=== PATIENT | female | born 1930 | race Caucasian/White ===

== ENCOUNTER 2017-12-06 18:44 | Inpatient (IN) | payer OTHER, MEDICARE ==
[~2017-12-06] VITALS: Ht 162.6 cm; Wt 73.0 kg
[~2017-12-06 18:44] MED LIST: ADVAIR 250-501 EACH INH; ETODOLAC400 M1 PO; FLUTICASONE PRO16 GM NASB; GABAPENTIN300 M2 PO; MIRALAX119 GM PO; MUCINEX1200 M1 PO; PANTOPRAZOLE SO40 M1 PO; PRESERVISION A1 EACH PO; PROVENTIL HFA6.7 GM INH; SENNA-TIME S T1 EACH PO; TRAMADOL HCL50 M1 PO; VITAMIN B-121000 MC3 PO; ZESTRIL40 M1 PO; ZOFRAN ODT4 M1 PO
[2017-12-06 19:49] LABS: ABSOLUTE BASOPHIL COUNT 0.1 /CUMM (0.0-0.2); ABSOLUTE EOSINOPHIL COUNT 0.3 /CUMM (0.0-0.7); ABSOLUTE GRANULOCYTE CT 10.6 /CUMM (1.4-6.5); ABSOLUTE LYMPH COUNT 1.9 /CUMM (1.2-3.4); ABSOLUTE MONOCYTE COUNT 0.9 /CUMM (0.10-0.60); EOSINOPHIL % 1.9 % (0-5); GRANULOCYTE % 76.7 % (42.2-75.2); HEMATOCRIT 27.5 % (37-47); MEAN CORPUSCULAR HGB 31.3 PG (27.0-31.0); MEAN CORPUSCULAR HGB CONC 33.3 G/DL (33.0-37.0); MEAN CORPUSCULAR VOLUME 93.9 FL (81.0-99.0); MEAN PLATELET VOLUME 7.5 FL (7.4-10.4); PLATELET COUNT 334 /CUMM (130-400); RED BLOOD CELL CT 2.93 /CUMM (4.20-5.40); WHITE BLOOD CELL COUNT 13.8 /CUMM (4.8-10.8)
--- NOTE | 2017-12-06 20:13 | ED GENERAL ADULT ---
History of Present Illness General Chief Complaint: General Adult Stated Complaint: DIZZINESS, NEAR SYNCOPE EPISODE, LETHARGY Source: patient, family, old records Exam Limitations: clinical condition, confusion Allergies Coded Allergies: Penicillins (UNKNOWN 08/29/15) Sulfa (Sulfonamide Antibiotics) (UNKNOWN 08/29/15) Uncoded Allergies: MULTIPLE CHEMICAL SENSITIVITIES (08/29/15) Reconcile Medications Albuterol Sulfate (Proventil Hfa) 6.7 GM HFA.AER.AD 2 PUF INH TIDPRN BREATHING (Reported) Cyanocobalamin (Vitamin B-12) 1,000 MCG TABLET 1 TAB PO DAILY Supplement Fluticasone Propionate 16 GM SPRAY.SUSP 2 SPRAY NASB DAILY NEEDED PRN ALLERGIES (Reported) Fluticasone/Salmeterol (Advair 250-50 Diskus) 1 EACH BLST.W.DEV 1 PUF INH BID SICK BUILDING SYNDROME (Reported) Gabapentin 300 MG CAPSULE 1 CAP PO BID NERVE PAIN (Reported) Guaifenesin (Mucinex) 1,200 MG TAB.ER.12H 1 TAB PO BID MUCUS (Reported) Lidocaine 1 EACH ADH..PATCH 1 PAT TOP DAILY PAIN (Reported) Pantoprazole Sodium 40 MG TABLET.DR 1 TAB PO DAILY GERD (Reported) Polyethylene Glycol 3350 (Miralax) 119 GM POWDER 17 GM PO DAILY PRN CONSTIPATION Rosuvastatin Calcium (Crestor) 10 MG TABLET 1 TAB PO DAILY CHOLESTEROL ( Reported) Sennosides/Docusate Sodium (Senna-Time S Tablet) 1 EACH TABLET 1 TAB PO AT BEDTIME PRN CONSTIPATION Tramadol HCl 50 MG TABLET 1 TAB PO Q6P PRN PAIN SCALE 4-6 (MODERATE) Vit A/Vit C/Vit E/Zinc/Copper (Preservision Areds Tablet) 1 EACH TABLET 2 TAB PO D EYES (Reported) Triage Note: BIBA FROM HOME FOR ACUTE CONFUSION.LETHARGY AND PROGRESSIVE WEAKNESS PAST COUPLE DAYS. DTR CONCERNED PT IS DEHYDRATED BECAUSE SHE SPENT LONG HOURS IN THE SUN PAST FEW DAYS. PT AWAKE, ALERT, ORIENTED TO PERSON AND PLACE BUT HAVING DIFFICULTY ANSWERING SIMPLE QUESTIONS, MUMBLING AND NOT MAKING MUCH SENSE WHEN SPEAKING. SKIN WARM AND DRY. MOVES ALL EXTREMITIES BUT NOT FOLLOWING COMMANDS TO DO NEURO EXAM. --IV STARTED BY EMS AND PT HAS RECIEVED 250CC NS IN ROUTE TO ED. GLUCOSE BY EMS 113. Triage Nurses Notes Reviewed? yes HPI: 87 year old woman with past medical history of multiple myeloma, hypertension, hyperlipidemia seen for evaluation of decreased oral intake, dehydration and weakness. Collateral information obtained from patients daughter whom is present during the interview. Patient was reported in her normal state of health until Friday when she sat outside in the heat for about an hour. Since that time she has had decreased oral intake with developed of nausea with one episode of non-bloody watery vomiting and frequent loose stools. She was reportedly given "steroids by her PCP" for joint pain and finished the course. She took clindamycin for a dentist appointment . She was seen in her home by her PCP on Friday whom recommended that she come to the ED for dehydration. Review of systems Patient denies any fever, chills, vision changes, slurred speech, numbess, tingling, weakness, chest pain, shortness of breath, cough, urinary symptoms. (Frantz Reyes MD) Vital Signs & Intake/Output Vital Signs & Intake/Output Vital Signs Date Time Temp Pulse Resp B/P B/P Pulse O2 O2 Flow FiO2 Mean Ox Delivery Rate 12/064 97.6 87 19 102/60 94 Room Air 12/06 215 97.6 87 20 131/59 95 Room Air 12/06 2140 Room Air 12/06 1910 98.7 12/06 1851 76 20 112/51 98 Room Air (Shon Batista DO) Past History Travel History Traveled to [place] past 21 day No Medical History Any Pertinent Medical History? 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 Gastrointestinal: GERD Hepatic: NONE Renal: NONE, F/C Musculoskeletal: chronic back pain, fracture, osteoporosis, sciatica Psychiatric: anxiety Endocrine: adrenal insufficiency Blood Disorders: multiple myeloma Cancer(s): NONE BLACK BELT/Reproductive: NONE History of MRSA: No History of VRE: No History of CDIFF: No Influenza Vaccine: 01/26/15 Surgical History Surgical History: non-contributory Psychosocial History Who do you live with Daughter Services at Home None What is your primary language Georgian Tobacco Use: Cognitive Impairment Illicit Drug Use: denies illicit drug use Family History Hx Contributory? No (Frantz Reyes MD) Review of Systems Review of Systems Constitutional: Reports: see HPI. (Roosevelt MD,Frantz) Physical Exam Physical Exam General Appearance: awake, comfortable Head: atraumatic, normal appearance Eyes: Bilateral: normal appearance, PERRL, EOMI. Ears, Nose, Throat: normal pharynx, normal ENT inspection Neck: normal inspection, supple, full range of motion Respiratory: normal breath sounds, chest non-tender, no respiratory distress, quiet respiration, lungs clear Cardiovascular: regular rate/rhythm, normal peripheral pulses Peripheral Pulses: 2+ radial (R), 2+ radial (L) Gastrointestinal: normal bowel sounds, soft, non-tender Extremities: normal inspection, normal capillary refill, normal range of motion, no edema Neurologic/Psych: no motor/sensory deficits, awake, alert Skin: intact, normal color, warm/dry Core Measures ACS in differential dx? No CVA/TIA Diagnosis: No Sepsis Present: No Sepsis Focused Exam Completed? No (Frantz Reyes MD) Progress Differential Diagnoses I considered the following diagnoses in my evaluation of the patient: acute kidney injury, dehydration, colitis, c. diff, gastroenteritis Initial ED EKG: none Comments: Patient appears to have nausea, vomiting, diarrhea secondary to dehydration and possible antibiotic induced colities resulting in acute kidney injury and deconditioning. She remains afebrile without fever, chills, or urinary symptoms with a UTI suggestive of possible urinary tract infection. Patient is being admitted to the general medicine floor for intravenous fluids, PT evaluation, possibly heme/onc consult for history of multiple myeloma and new ALF, and possibly further antibiotics. (Frantz Reyes MD) Plan of Care: Orders Procedure Date/time Status Heart Healthy Diet 12/07 B Active CBC WITHOUT DIFFERENTIAL 12/07 06 Active BASIC ELECTROLYTES PLUS BUN&CR 12/07 06 Active Turn and Reposition 12/07 2231 Active Skin Integrity Protocol 12/07 2231 Active Weight 12/07 2215 Active Vital Signs 12/07 2215 Active Teach/Educate 12/07 2215 Active Pain Treatment and Response 12/07 2215 Active Nutritional Intake, Monitor 12/07 2215 Active Isolation 12/07 2215 Active Intake & Output 12/07 2215 Active Patient Care Conference 12/07 2215 Active Activity/Ambulation 12/07 2215 Active PT Evaluate & Treat 12/06 2121 Active Pathway - chart 12/06 2121 Active Intake & Output 12/06 2034 Active Patient Data 12/06 2024 Active Admit to inpatient 12/06 2022 Active Add-on Test (ER Only) 12/06 2012 Active Add-on Test (ER Only) 12/06 2002 Active Add-on Test (ER Only) 12/06 2001 Active CULTURE,URINE 12/06 1934 Active URINALYSIS 12/06 1934 Complete LACTIC ACID 12/06 1934 Complete COMPREHENSIVE METABOLIC PANEL 12/06 1934 Complete CREATINE PHOSPHOKINASE 12/06 1934 Complete CBC WITHOUT DIFFERENTIAL 12/06 1934 Complete House Staff 12/06 UNK Active VTE Mechanical Prophylaxis 12/06 UNK Active Intake & Output 12/06 UNK Active Activity/Ambulation 12/06 UNK Active Current Medications Sig/Manas Start time Last Medication Dose Stop Time Status Admin Ceftriaxone Sodium 1,000 MG Q24H 12/08 1999 AC (Rocephin) Heparin Sodium 5,000 UNIT Q8 12/06 2199 AC 12/06 (Porcine) 2253 Acetaminophen 650 MG Q6P PRN 12/06 2129 AC (Tylenol) Sodium Chloride 1,000 ML Q10H 12/06 2014 AC 12/06 (Normal Saline 0.9%) 12/07 1614 2254 Laboratory Tests 12/06/171934: Anion Gap 17 H, Estimated GFR 7 L, BUN/Creatinine Ratio 9.8, Glucose 100 H, Lactic Acid 1.4, Calcium 8.1 L, Total Bilirubin 0.7, AST 18, ALT 23, Alkaline Phosphatase 80, Creatine Kinase 44, Total Protein 6.5, Albumin 3.1 L, Globulin 3.4, Albumin/Globulin Ratio 0.9 L, CBC w Diff NO MAN DIFF REQ, RBC 2.93 L, MCV 93.9, MCH 31.3 H, MCHC 33.3, RDW 16.0 H, MPV 7.5, Gran % 76.7 H, Lymphocytes % 13.6 L, Monocytes % 6.8, Eosinophils % 1.9, Basophils % 1.0, Absolute Granulocytes 10.6 H, Absolute Lymphocytes 1.9, Absolute Monocytes 0.9 H, Absolute Eosinophils 0.3, Absolute Basophils 0.1, Urine Color YEL, Urine Clarity CLDY H, Urine pH 6.0, Ur Specific [place] 1.025, Urine Protein 100 H, Urine Ketones NEG, Urine Nitrite NEG, Urine Bilirubin NEG, Urine Urobilinogen 0.2, Ur Leukocyte Esterase LARGE H, Ur Microscopic SEDIMENT EXAMINED, Urine RBC 1-3, Urine WBC 5-10 H, Urine Bacteria MANY H, Urine Hemoglobin MOD H, Urine Glucose NEG Microbiology 12/06 1934 URINE ROUT: Urine Culture - RECD (Shon Batista DO) Departure Departure Disposition: STILL A PATIENT Condition: Stable Clinical Impression Primary Impression: Acute kidney failure Secondary Impressions: Weakness Referrals: Carine PRITCHARD,Huber Coffey (PCP/Family) Departure Forms: Customer Survey General Discharge Information (Frantz Reyes MD) Admission Note Spoke With: Yasir Li MD Documentation of Exam: Documentation of any treatments & extenuating circumstances including Concerns Regarding Discharge (functional status, medication knowledge or non-compliance, living conditions, etc.) that warrant an admission rather than observation: [The patient needs admission for IV fluids, consider nephrology consultation, consider heme oncology consultation, follow creatinine, consider antibiotics] Resident Co-Sign Statement Statement: ED Attending supervision documentation- [X] I saw and evaluated the patient. I have also reviewed all the pertinent lab results and diagnostic results. I agree with the findings and the plan of care as documented in the Resident's documentation. [] I have reviewed the ED Record and agree with the Resident's documentation. [] Additions or exceptions (if any) to the Resident's note and plan are summarized below: [] I have seen and personally examined the patient and I agree with Dr Stoll's evaluation. (Shon Batista DO) Critical Care Note Critical Care Note Critical Care Time: non-applicable (Frantz Reyes MD)
--- NOTE | 2017-12-06 20:35 | History & Physical ---
Remigio Stiles 12/06/172033: General Information and HPI MD Statement: I have seen and personally examined JOHANA LY and documented this H&P. The patient is a 87 year old F who presented with a patient stated chief complaint of [Dehydration, Lethargy x5 days]. Source of Information: patient, family, old records Exam Limitations: not alert/orientated, confusion, poor historian History of Present Illness: Johana Ly is an 87F with PMH multiple myeloma, hypertension, HLD, sciatica, OA, GERD who presents with 5 days of lethargy, dehydration, weakness, diarrhea and poor PO intake. Pt is poor historian, confused, A/O x 0; information was obtained from daughter who was in the room with the patient. Patient recently had some muscle aches and was prescribed a steroid taper which she completed on Friday. Otherwise patient was in her normal state of health Friday when she decided to sit outside to "enjoy the nice weather". Patient was outside for 2 hours per daughter, and then was more lethargic than normal at night. Patient was taken to dentist by daughter on friday, where she had to be assistedx2 up from chair whereas patient is usually only 1 assist/ independent. She also had decreased PO intake at this time, and started passing loose stools with increased frequency. On , patient layed in bed most of the day and did not have much interest in her daily activities; Friday, patient continued having loose stools and was unable to get out of her recliner without assistance. Her PCP came to her house Friday, who recommended that patient come to the ED 2/2 dehydration, and she was brought here Friday for evaluation. Daughter denies patient acting erratically, sick contacts, falls, urinary incontinence, pain, complaints by mother. 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 Home (daughters house) Who Do You Live With? child (daughter) Services at Home: None Smoking Status: Never Smoked ETOH Use: denies use Illicit Drug Use: denies illicit drug use Review of Systems Review of Systems Constitutional: Reports: see HPI, malaise, weakness. Cardiovascular: Denies: chest pain, orthopena. Respiratory: Denies: cough, hemoptysis, short of breath. GI: Reports: diarrhea, changes in stool (loose with increased freq). Denies: nausea , bloody stool. Genitourinary: Denies: discharge, dysuria, frequency, hematuria, hesitation. Neurological/Psychological: Reports: confusion (per daughter). Exam & Diagnostic Data Last 24 Hrs of Vital Signs/I&O Vital Signs Date Time Temp Pulse Resp B/P B/P Pulse O2 O2 Flow FiO2 Mean Ox Delivery Rate 12/06 2254 97.6 87 19 102/60 94 Room Air 12/06 2150 97.6 87 20 131/59 95 Room Air 12/06 2140 Room Air 12/06 1910 98.7 12/06 1851 76 20 112/51 98 Room Air Intake & Output 12/07 0800 12/07 0000 12/06 1600 Intake Total 1000 Output Total 100 Balance 900 Intake, IV 1000 Intake, Oral 0 Output, Urine 100 Patient 175 lb Weight Weight Bed scale Measurement Method Physical Exam General Appearance Alert, Cooperative, A/O x0, recognizes family at bedside Skin chronic venous changes b/l LE Skin Temp/Moisture Exam: Warm/Dry Cardiovascular Regular Rate, Normal S1, Normal S2 Lungs Clear to Auscultation, Normal Air Movement Abdomen Soft, No Tenderness, no suprapubic tenderness, no cva tendernesss Neurological Sensation Intact, strength 4/5 b/l LE Extremities 1+ edema b/l LE Last 24 Hrs of Labs/Keaton: Laboratory Tests 12/06/175: Anion Gap 17 H, Estimated GFR 7 L, BUN/Creatinine Ratio 9.8, Glucose 100 H, Lactic Acid 1.4, Calcium 8.1 L, Total Bilirubin 0.7, AST 18, ALT 23, Alkaline Phosphatase 80, Creatine Kinase 44, Total Protein 6.5, Albumin 3.1 L, Globulin 3.4, Albumin/Globulin Ratio 0.9 L, CBC w Diff NO MAN DIFF REQ, RBC 2.93 L, MCV 93.9, MCH 31.3 H, MCHC 33.3, RDW 16.0 H, MPV 7.5, Gran % 76.7 H, Lymphocytes % 13.6 L, Monocytes % 6.8, Eosinophils % 1.9, Basophils % 1.0, Absolute Granulocytes 10.6 H, Absolute Lymphocytes 1.9, Absolute Monocytes 0.9 H, Absolute Eosinophils 0.3, Absolute Basophils 0.1, Urine Color YEL, Urine Clarity CLDY H, Urine pH 6.0, Ur Specific [place] 1.025, Urine Protein 100 H, Urine Ketones NEG, Urine Nitrite NEG, Urine Bilirubin NEG, Urine Urobilinogen 0.2, Ur Leukocyte Esterase LARGE H, Ur Microscopic SEDIMENT EXAMINED, Urine RBC 1-3, Urine WBC 5-10 H, Urine Bacteria MANY H, Urine Hemoglobin MOD H, Urine Glucose NEG Microbiology 12/06 1934 URINE ROUT: Urine Culture - RECD Assessment/Plan Assessment: Johana Ly is an 87F with PMH multiple myeloma, hypertension, HLD, sciatica, OA, GERD who presents with 5 days of lethargy, dehydration, weakness, diarrhea and poor PO intake. She was sent to ED by her PCP for concerns of dehydration, was confused, found to have UTI on UA and elevated BUN/Cr 56/5.7 with baseline cre 0.9. Previous UTIs were E. Coli sensitive to ceftriaxone, which she received in ED along with NS 1L. The source of her confusion is likely cystitis, doubt pyelonephritis as no white count or CVA tenderness, doubt any acute ischemic events as no focal neuro deficits and no falls; most likely prerenal ALF in the setting of diarrhea and dehydration, doubt intrinsic renal issue as patient has not had any NSAIDs or changes in medication, likely not postrenal as no obstruction and patient is able to void. Problem List #Urinary tract infection, uncomplicated #Acute kidney injury 2/2 dehydration #Chronic normocytic anemia, secondary to underlying multiple myeloma #PMH of multiple myeloma, HTN, HLD, asthma w/ sick building syndrome #UTI -On Ceftriaxone -F/u cultures #ALF -IVF 100cc/hr -F/u BEP in the AM -Hold lisinopril/gabapentin #Chronic medical conditions -Continue home meds -Please call PCP in the AM to find out why patient is on Eliquis. I called [facility] on [address], they have no record of why but the patient has been recieving it since 2014. Daughter states that it is due to ?leg swelling but unsure as well. DVT ppx: ALPS only, on Eliquis IV Access Regular Diet FC Dispo: pending PT eval As Ranked By This Provider Problem List: 1. Acute kidney failure 2. UTI (urinary tract infection) Core Measures/Misc (01/12) Acute Coronary Syndrome ACS Diagnosis: No Congestive Heart Failure Congestive Heart Failure Diagnosis No Cerebrovascular Accident CVA/TIA Diagnosis: No VTE (View Protocol) VTE Risk Factors Age>40 No Mechanical VTE Prophylaxis d/t N/A MechProphylax Ordered No VTE Pharm Prophylaxis d/t Other (on Eliquis) Sepsis (View protocol) Sepsis Present: No If YES complete Sepsis Event Note If YES complete Sepsis Event Note OskarNardacarmen Juan 12/06/172051: Core Measures/Misc (01/12) Sepsis (View protocol) If YES complete Sepsis Event Note If YES complete Sepsis Event Note Resident Review Statement Resident Statement: examined this patient, discussed with leadership program intern, agreed with leadership program intern, discussed with family, reviewed EMR data (avail), discussed with nursing , discussed with case mgmt, reviewed images, amended to note Other Findings: Ms. Ly is a 87yo F w/ PMH of multiple myeloma, HTN, HLD, asthma w/ sick building syndrome, BIBA to ER cc of decreased oral intake, dehydration and weakness. Patient's daughter was at bedside for collateral info that Patient was reported in her normal state of health until Friday when she sat outside in the heat for about an hour. Since that time she has had decreased oral intake with developed of nausea with one episode of non-bloody watery vomiting and frequent loose stools. She was reportedly given "steroids by her PCP" for joint pain and finished the course. She took clindamycin for a dentist appointment . She was seen in her home by her PCP on Friday whom recommended that she come to the ED for dehydration. During our clinical interaction, patient appeared to be only AOx1 mostly to herslef, however conversational and making sens, recalled partial history of what was happening. Again, patient's daughter provided most of history. Rest of history details per HPI above. -Baselines: Ambulated w/ walker at home w/ home PT. During our clinical interaction, patient denied recent travel/sick contacts, fever/lightheadedness/diaphoresis/night sweat/weight change/cough/SOB/Chest Pain /Palpitation/Abdominal pain/CVA tenderness/bowel movement abnormality, or other skin/musculoskeletal/neurological/mood disorders, or dietary/appetite change. -Smoking: denied -Alcohol: denied -Drugs: denied -Outpt physicians: PCP, Dr. Elise for M/M w/ zometa monthly injection. -Daytime meds: On admission, Vitals: Stable afebrile, 98% room air Physical exam as above. Pertinent findings includine BLE trace edema w/ chronic skin change however no active lesion. DP + BLEs. Stength grossly 4-5/5 in all extremities, with some baseline shakiness however per daughter, no hx of parkinsons. -CBC: Leukocytosis 13.8, H/H 9.1/27.5, PLT 334 -CMP: Mild hyponatremia 136, elevated creatinine 5.7 from baseline 0.9. Hypocalcemia 8.1 however corrected to albumin within normal range, -PT/INR/DDimer: -UA/Microbiology: Positive for LE/bacteria/hemoglobin. Previously growing E.Coli not pansensitive however S to Cefazolin, Cipro, etc. -EKG: NSR w/o significant ST-T abnormalities, unchanged from previous. -Last Echo: none in our system, however per daughter had been had Echo in the past without any recall of abnormal results. -Interventions in ER: Normal saline 1 every 10, Rocephin 1 Problem list/Assessment/Hospital Course: #Urinary tract infection, uncomplicated #Acute kidney injury 2/2 dehydration #Chronic normocytic anemia, secondary to underlying multiple myeloma #PMH of multiple myeloma, HTN, HLD, asthma w/ sick building syndrome - Admit to general medicine - Vitals per protocol, monitor I&O per protocol. - If SOB, may need TRC/Neb inpatient. Currently patient was doing well under RA. - PT/OT in the AM - Continuous fluid hydration at 100cc/hr. - Continue ceftriaxone 1g qd for UTI coverage and tailor per clinical course - Continue all home meds, except HOLDING lisinopril/Gabapentin due to ALF - Confirm w/ PCP regarding why patient was on Eliquis 5mg BID. Pharmacy ([facility] on [facility] was contacted however no idea why patient was on). - Pt is relative stable for now from M/M stand point. Consider inform Dr. Elise for patient's admission, and if needed, Hem/Onc consult by primary team. - Consider nephro consult if patient's renal function is not improving. - Check PT/INR in the AM - Pending cultures including urine - Pain per pathway DVT prophylaxis Eliquis + ALPS Heart Healthy Diet IV Access: Peripheral IV Full Code Dispo: HPT vs STR [facility] 12/07/17 0342: General Information and HPI MD Statement: I have seen and personally examined JOHANA LY and documented this H&P. The patient is a 87 year old F who presented with a patient stated chief complaint of [renal failure]. Source of Information: family Exam Limitations: not alert/orientated, dementia, poor historian Allergies/Medications Allergies: Coded Allergies: Penicillins (UNKNOWN 08/29/15) Sulfa (Sulfonamide Antibiotics) (UNKNOWN 08/29/15) Uncoded Allergies: MULTIPLE CHEMICAL SENSITIVITIES (08/29/15) Home Med list Albuterol Sulfate (Proventil Hfa) 6.7 GM HFA.AER.AD 2 PUF INH TIDPRN BREATHING (Reported) Apixaban (Eliquis) 5 MG TABLET 1 TAB PO BID Blood Thinner (Reported) Atorvastatin Calcium 10 MG TABLET 1 TAB PO DAILY HLD (Reported) Cyanocobalamin (Vitamin B-12) 1,000 MCG TABLET 1 TAB PO DAILY Supplement Escitalopram Oxalate 10 MG TABLET 1 TAB PO DAILY Mental (Reported) Fluticasone Propionate 16 GM SPRAY.SUSP 2 SPRAY NASB DAILY NEEDED PRN ALLERGIES (Reported) Fluticasone/Salmeterol (Advair 250-50 Diskus) 1 EACH BLST.W.DEV 1 PUF INH BID SICK BUILDING SYNDROME (Reported) Gabapentin 300 MG CAPSULE 1 CAP PO BID NERVE PAIN (Reported) Guaifenesin (Mucinex) 1,200 MG TAB.ER.12H 0.5 TAB PO BID MUCUS (Reported) Polyethylene Glycol 3350 (Miralax) 119 GM POWDER 17 GM PO DAILY PRN CONSTIPATION Sennosides/Docusate Sodium (Senna-Time S Tablet) 1 EACH TABLET 1 TAB PO AT BEDTIME PRN CONSTIPATION Vit A/Vit C/Vit E/Zinc/Copper (Preservision Areds Tablet) 1 EACH TABLET 2 TAB PO D EYES (Reported) Past History Medical History Cardiovascular: hypertension, hyperlipidemia Gastrointestinal: GERD Musculoskeletal: osteoporosis Psychiatric: anxiety Endocrine: adrenal insufficiency Blood Disorders: multiple myeloma Surgical History Surgical History: hip replacement Past Family/Social History Psychosocial History Smoking Status: Never Smoked ETOH Use: denies use Illicit Drug Use: denies illicit drug use Employment History Employment Retired Review of Systems Review of Systems Constitutional: Reports: see HPI. Exam & Diagnostic Data Last 24 Hrs of Vital Signs/I&O Vital Signs Date Time Temp Pulse Resp B/P B/P Pulse O2 O2 Flow FiO2 Mean Ox Delivery Rate 12/06 2254 97.6 87 19 102/60 94 Room Air 12/06 2150 97.6 87 20 131/59 95 Room Air 12/06 2140 Room Air 12/06 1910 98.7 12/06 1851 76 20 112/51 98 Room Air Intake & Output 12/07 0800 12/07 0000 12/06 1600 Intake Total 1000 Output Total 100 Balance 900 Intake, IV 1000 Intake, Oral 0 Output, Urine 100 Patient 175 lb Weight Weight Bed scale Measurement Method Physical Exam General Appearance Cooperative, A/O x0, recognizes family at bedside Skin chronic venous changes b/l LE Skin Temp/Moisture Exam: Warm/Dry Sepsis Skin Exam (color): Normal for Ethnicity HEENT Atraumatic, PERRLA, EOMI Neck Supple, No JVD Lymphatic Axillary nl, Cervical nl Cardiovascular Regular Rate, Normal S1, Normal S2 Lungs Clear to Auscultation, Normal Air Movement Abdomen Normal Bowel Sounds, Soft, No Tenderness Sepsis Peripheral Pulse Location: Dorsalis Pedis Sepsis Peripheral Pulse Exam: Normal Sepsis Cap Refill Exam: <2 Sec Last 24 Hrs of Labs/Keaton: Laboratory Tests 12/06/17 1935: Anion Gap 17 H, Estimated GFR 7 L, BUN/Creatinine Ratio 9.8, Glucose 100 H, Lactic Acid 1.4, Calcium 8.1 L, Total Bilirubin 0.7, AST 18, ALT 23, Alkaline Phosphatase 80, Creatine Kinase 44, Total Protein 6.5, Albumin 3.1 L, Globulin 3.4, Albumin/Globulin Ratio 0.9 L, CBC w Diff NO MAN DIFF REQ, RBC 2.93 L, MCV 93.9, MCH 31.3 H, MCHC 33.3, RDW 16.0 H, MPV 7.5, Gran % 76.7 H, Lymphocytes % 13.6 L, Monocytes % 6.8, Eosinophils % 1.9, Basophils % 1.0, Absolute Granulocytes 10.6 H, Absolute Lymphocytes 1.9, Absolute Monocytes 0.9 H, Absolute Eosinophils 0.3, Absolute Basophils 0.1, Urine Color YEL, Urine Clarity CLDY H, Urine pH 6.0, Ur Specific [place] 1.025, Urine Protein 100 H, Urine Ketones NEG, Urine Nitrite NEG, Urine Bilirubin NEG, Urine Urobilinogen 0.2, Ur Leukocyte Esterase LARGE H, Ur Microscopic SEDIMENT EXAMINED, Urine RBC 1-3, Urine WBC 5-10 H, Urine Bacteria MANY H, Urine Hemoglobin MOD H, Urine Glucose NEG Microbiology 12/06 1934 URINE ROUT: Urine Culture - RECD Core Measures/Misc (01/12) Sepsis (View protocol) If YES complete Sepsis Event Note If YES complete Sepsis Event Note Attending MD Review Statement Attending Statement Attending MD Statement: examined this patient, discuss w/resident/PA/CLINICAL ORTHOPTIST, agreed w/resident/PA/CLINICAL ORTHOPTIST, discussed with family, reviewed EMR data (avail), amended to note Attending Assessment/Plan: This patient is an 87-year-old female with significant past medical history for multiple myeloma, hypertension, HLD, sciatica, OA, GERD who presents with a 5 day history of lethargy, dehydration, weakness, diarrhea and poor PO intake. Pt is poor historian, confused, A/O x 0; information was obtained from daughter who was in the room with the patient. The patient was in her normal state of health 5 days prior to admission when she decided to sit outside to "enjoy the nice weather". She was outside for 2 hours and then was more lethargic than normal that night. Four days prior to admission she was taken to the dentist where she required more assistance, had decreased PO intake, increased diarrhea and given clindamycin. One day prior to admission the patient continued to have loose stools and was unable to get out of her recliner without assistance. Upon evaluation in the emergency department patient was found to have stable vital signs, leukocytosis 13.8, anemia 9.1, a positive UA, and BUN and creatinine 56/ 5.7 (baseline 0.5 in 2016). The patient will be admitted to general medicine for acute kidney injury, urinary tract infection and chronic normocytic anemia. Gentle hydration, antibiotics, hold lisinopril and gabapentin, unclear why patient is on Eliquis will need to investigate further in the morning, consider nephro consult if creatinine does not improve. FULL CODE.
[2017-12-06 22:54] VITALS: BP 102/60
[2017-12-07] MEDS ORDERED: ELIQUIS5 M1 PO (01:14)
[2017-12-07] MEDS ORDERED: ESCITALOPRAM OX10 MG PO (01:15)
[2017-12-07] MEDS ORDERED: ATORVASTATIN CA10 M1 PO (01:18)
[2017-12-07 07:24] VITALS: BP 128/62
[2017-12-07 08:37] LABS: ABSOLUTE BASOPHIL COUNT 0 /CUMM (0.0-0.2); ABSOLUTE EOSINOPHIL COUNT 0.2 /CUMM (0.0-0.7); ABSOLUTE GRANULOCYTE CT 7.5 /CUMM (1.4-6.5); ABSOLUTE LYMPH COUNT 0.7 /CUMM (1.2-3.4); ABSOLUTE MONOCYTE COUNT 0.8 /CUMM (0.10-0.60); BASOPHIL % 0.4 % (0.0-2.0); EOSINOPHIL % 1.7 % (0-5); GRANULOCYTE % 81.1 % (42.2-75.2); HEMATOCRIT 24.5 % (37-47); MEAN CORPUSCULAR HGB 31.1 PG (27.0-31.0); MEAN CORPUSCULAR HGB CONC 33.3 G/DL (33.0-37.0); MEAN CORPUSCULAR VOLUME 93.6 FL (81.0-99.0); MEAN PLATELET VOLUME 7.5 FL (7.4-10.4); PLATELET COUNT 321 /CUMM (130-400); RED BLOOD CELL CT 2.62 /CUMM (4.20-5.40); WHITE BLOOD CELL COUNT 9.3 /CUMM (4.8-10.8)
--- NOTE | 2017-12-07 08:59 | PN- Housestaff ---
Ajith Lennoni 12/07/17 0859: Subjective Follow-up For: UTI and ALF Subjective: Patient was seen and examined at bedside. She was orineted but confused. She denies pain but report she has an increased urinary frequency. She could not answer more questions. Review of Systems Constitutional: Reports: see HPI. Objective Last 24 Hrs of Vital Signs/I&O Vital Signs Date Time Temp Pulse Resp B/P B/P Pulse O2 O2 Flow FiO2 Mean Ox Delivery Rate 12/07 1445 98.9 89 20 110/60 93 Room Air 12/07 0724 98.7 85 20 128/62 97 12/06 2254 97.6 87 19 102/60 94 Room Air 12/06 2150 97.6 87 20 131/59 95 Room Air 12/06 2140 Room Air 12/06 1910 98.7 12/06 1851 76 20 112/51 98 Room Air Intake & Output 12/07 1600 12/07 0800 12/07 0000 Intake Total 200 1000 Output Total 100 Balance 200 900 Intake, IV 1000 Intake, Oral 200 0 Output, Urine 100 Patient 175 lb Weight Weight Bed scale Measurement Method Physical Exam General Appearance: Cooperative, No Acute Distress Cardiovascular: Regular Rate, Normal S1, Normal S2 Lungs: Clear to Auscultation Abdomen: Normal Bowel Sounds, Soft, No Tenderness Assessment/Plan Assessment: Johana Ly is an 87F with PMH multiple myeloma, hypertension, HLD, sciatica, OA, GERD who presents with 5 days of lethargy, dehydration, weakness, diarrhea and poor PO intake. She was sent to ED by her PCP for concerns of dehydration, was confused, found to have UTI on UA and elevated BUN/Cr 56/5.7 with baseline cre 0.9. Previous UTIs were E. Coli sensitive to ceftriaxone, which she received in ED along with NS 1L. The source of her confusion is likely cystitis, doubt pyelonephritis as no white count or CVA tenderness, doubt any acute ischemic events as no focal neuro deficits and no falls; most likely prerenal ALF in the setting of diarrhea and dehydration, doubt intrinsic renal issue as patient has not had any NSAIDs or changes in medication, likely not postrenal as no obstruction and patient is able to void. Problem List 1.Urinary tract infection, uncomplicated 2.Acute kidney injury 2/2 dehydration 3.Chronic normocytic anemia, secondary to underlying multiple myeloma 4.PMH of multiple myeloma, HTN, HLD, asthma w/ sick building syndrome 1.UTI -On Ceftriaxone -F/u cultures 2.ALF -IVF 100cc/hr -F/u BEP at 6PM -Creatinine improved after hydration -Nephro consult if fails to improve -Hold lisinopril/gabapentin 3,Chronic medical conditions -Continue home meds -Will call PCP in the AM to find out why patient is on Eliquis. Daughter stated that it is due to ?leg swelling but unsure as well. DVT ppx: ALPS only, on Eliquis IV Access Regular Diet FC Dispo: pending PT eval Problem List: 1. UTI (urinary tract infection) 2. Weakness 3. Acute kidney failure 4. Hypertension Pain Ratin Pain Location: na Pain Goal: Remain pain free Pain Plan: na Tomorrow's Labs & Rationales: cbc and bep William PRITCHARD,Amir 12/07/17 1235: Attending MD Review Statement Attending Statement Attending MD Statement: examined this patient, discuss w/resident/PA/AIRLINE COUNTER AGENT, agreed w/resident/PA/AIRLINE COUNTER AGENT, reviewed EMR data (avail), discussed with nursing Attending Assessment/Plan: --cont to monitor renal fx --f/u renal consult
[2017-12-07 14:45] VITALS: BP 110/60
[2017-12-07 20:50] LABS: ABSOLUTE BASOPHIL COUNT 0 /CUMM (0.0-0.2); ABSOLUTE EOSINOPHIL COUNT 0.1 /CUMM (0.0-0.7); ABSOLUTE GRANULOCYTE CT 6.2 /CUMM (1.4-6.5); ABSOLUTE LYMPH COUNT 0.6 /CUMM (1.2-3.4); ABSOLUTE MONOCYTE COUNT 0.7 /CUMM (0.10-0.60); BASOPHIL % 0.6 % (0.0-2.0); EOSINOPHIL % 1.4 % (0-5); GRANULOCYTE % 80.5 % (42.2-75.2); HEMATOCRIT 26.2 % (37-47); MEAN CORPUSCULAR HGB 31.3 PG (27.0-31.0); MEAN CORPUSCULAR HGB CONC 33.3 G/DL (33.0-37.0); MEAN CORPUSCULAR VOLUME 93.8 FL (81.0-99.0); MEAN PLATELET VOLUME 7.6 FL (7.4-10.4); PLATELET COUNT 312 /CUMM (130-400); RBC DISTRIBUTION WIDTH 16.6 % (11.5-14.5); RED BLOOD CELL CT 2.79 /CUMM (4.20-5.40); WHITE BLOOD CELL COUNT 7.7 /CUMM (4.8-10.8)
[2017-12-07 22:19] VITALS: BP 108/60
[2017-12-08 06:15] VITALS: BP 100/64
--- NOTE | 2017-12-08 07:42 | PN- Housestaff ---
Jo Lennon 12/08/17 0741: Subjective Follow-up For: UTI and acute Delirium Subjective: Patient was seen and examined at bedside. She was confused in the morning but drastically improved a couple of hours later when her daughter came to see her.She denies fever, chills, nausea, vomiting, increased urinary frequency, burning micturation. Review of Systems Constitutional: Reports: see HPI. Objective Last 24 Hrs of Vital Signs/I&O Vital Signs Date Time Temp Pulse Resp B/P B/P Pulse O2 O2 Flow FiO2 Mean Ox Delivery Rate 12/08 0615 98.2 84 20 100/64 95 Room Air 12/07 2219 99.9 87 24 108/60 96 Room Air 12/07 1445 98.9 89 20 110/60 93 Room Air Intake & Output 12/08 1600 12/08 0800 12/08 0000 Intake Total 100 100 Output Total Balance 100 100 Intake, Oral 100 100 Number 0 Bowel Movements Physical Exam General Appearance: Alert, Oriented X3, Cooperative, No Acute Distress Skin: No Rashes Neck: Supple Cardiovascular: Regular Rate, Normal S1, Normal S2 Lungs: Clear to Auscultation Abdomen: Normal Bowel Sounds, Soft, No Tenderness Assessment/Plan Assessment: Johana Ly is an 87F with PMH multiple myeloma, hypertension, HLD, sciatica, OA, GERD who presents with 5 days of lethargy, dehydration, weakness, diarrhea and poor PO intake. She was sent to ED by her PCP for concerns of dehydration, was confused, found to have UTI on UA and elevated BUN/Cr 56/5.7 with baseline cre 0.9. Her creatnine is 0.9 today. Her Cuevas's is dicontinued and she is able to void on her own. She was confused early in the morning today but drastically improved later in the day. Problem List 1.Urinary tract infection, uncomplicated 2.Acute kidney injury 2/2 dehydration 3.Chronic normocytic anemia, secondary to underlying multiple myeloma 4.PMH of multiple myeloma, HTN, HLD, asthma w/ sick building syndrome 1.UTI -On Ceftriaxone -Urine cultures pending -Asymptomatic at present except for intermittent confusion 2.ALF -IVF 100cc/hr -F/u BEP tomorow -Creatinine improved to 3.7 after hydration, FeNa 12.3 -Hold lisinopril/gabapentin 3,Chronic medical conditions -Continue home meds -Will call PCP in the AM to find out why patient is on Eliquis. Daughter stated that it is due to ?leg swelling but unsure as well. We will possibly discharge her tomorrow DVT ppx: ALPS only, on Eliquis IV Access Regular Diet FC Dispo: pending PT eval Problem List: 1. UTI (urinary tract infection) 2. Weakness 3. Acute kidney failure 4. Hypertension Pain Ratin Pain Location: na Pain Goal: Remain pain free Pain Plan: na Tomorrow's Labs & Rationales: cbc and bep LindseyVolodymyr carrollrea 12/08/17 1534: Attending MD Review Statement Attending Statement Attending MD Statement: examined this patient, discuss w/resident/PA/POWERHOUSE LABORER, agreed w/resident/PA/POWERHOUSE LABORER, reviewed EMR data (avail), discussed with nursing, discussed with case mgmt Attending Assessment/Plan: ALF on CKD- improving. cr down to 3.7. from 5.7 at admission. will cont to monitor closely. will get nephro consult. Encephalopathy secondary to metabolic causes- improving. confusion improving. d/w pt and pts family at bedside the care plan.
[2017-12-08 10:57] LABS: ABSOLUTE BASOPHIL COUNT 0.1 /CUMM (0.0-0.2); ABSOLUTE EOSINOPHIL COUNT 0.1 /CUMM (0.0-0.7); ABSOLUTE GRANULOCYTE CT 5.6 /CUMM (1.4-6.5); ABSOLUTE LYMPH COUNT 0.7 /CUMM (1.2-3.4); ABSOLUTE MONOCYTE COUNT 0.1 /CUMM (0.10-0.60); BASOPHIL % 1.2 % (0.0-2.0); EOSINOPHIL % 0.9 % (0-5); HEMATOCRIT 26.5 % (37-47); MEAN CORPUSCULAR HGB 31.5 PG (27.0-31.0); MEAN CORPUSCULAR HGB CONC 33.9 G/DL (33.0-37.0); MEAN CORPUSCULAR VOLUME 92.9 FL (81.0-99.0); MEAN PLATELET VOLUME 7.9 FL (7.4-10.4); PLATELET COUNT 317 /CUMM (130-400); RBC DISTRIBUTION WIDTH 15.9 % (11.5-14.5); RED BLOOD CELL CT 2.86 /CUMM (4.20-5.40); WHITE BLOOD CELL COUNT 6.5 /CUMM (4.8-10.8)
[2017-12-08 12:34] LABS: GRANULOCYTE % 85.8 % (42.2-75.2)
[2017-12-08 14:56] VITALS: BP 90/54
[2017-12-08 21:30] VITALS: BP 98/58
[2017-12-09 06:13] VITALS: BP 100/56
--- NOTE | 2017-12-09 07:38 | PN- Housestaff ---
See Addendum Jo Lennon 12/09/17 0738: Subjective Follow-up For: Alf Subjective: The patient was seen and examined at bedside. She has been consistently been improving. She is alert, oriented and cooperative. She denies fever, chills, nausea, vomiting, diarrhea, constipation, dizziness or weakness. Review of Systems Constitutional: Reports: see HPI. Objective Last 24 Hrs of Vital Signs/I&O Vital Signs Date Time Temp Pulse Resp B/P B/P Pulse O2 O2 Flow FiO2 Mean Ox Delivery Rate 12/09 1541 97.9 79 20 126/60 96 Room Air 12/09 0613 99.0 79 20 100/56 95 12/08 2130 97.7 76 20 98/58 98 Intake & Output 12/09 1600 12/09 0800 12/09 0000 Intake Total 900 520 Output Total Balance 900 520 Intake, IV 800 400 Intake, Oral 100 120 Number Bowel Movements Patient 174 lb Weight Physical Exam General Appearance: Alert, Oriented X3, Cooperative, No Acute Distress Sepsis Skin Exam (color): Normal for Ethnicity Neck: Supple Cardiovascular: Regular Rate, Normal S1, Normal S2 Lungs: Clear to Auscultation Abdomen: Normal Bowel Sounds, Soft, No Tenderness Assessment/Plan Assessment: Johana Ly is an 87F with PMH multiple myeloma, hypertension, HLD, sciatica, OA, GERD who presents with 5 days of lethargy, dehydration, weakness, diarrhea and poor PO intake. She was sent to ED by her PCP for concerns of dehydration, was confused, found to have UTI on UA and elevated BUN/Cr 56/5.7 with baseline cre 0.9. Her creatnine is 3.4 today. Her Cuevas's is dicontinued and she is able to void on her own. She is alert and orineted to time, place and person today. Problem List 1.Urinary tract infection, uncomplicated 2.Acute kidney injury 2/2 dehydration 3.Chronic normocytic anemia, secondary to underlying multiple myeloma 4.PMH of multiple myeloma, HTN, HLD, asthma w/ sick building syndrome 1.UTI -On Ceftriaxone -Nephrology consult appreciated. Will follow up recommendations. * [facility] kidney ordered for the patient. Will f/u report * Her urine samples have been contaminated. Obtained a straight cath sample for her. * Will order urine quantitative immunoglobulins * Will switch Ranitidine to Famotidine * Ordered blood cultures. Will f/u report * Will have strict I/O charting and daily weights recorded 2.ALF -IVF 100cc/hr -F/u BEP tomorow -Creatinine improved to 3.4 after hydration, FeNa 12.3 -Hold lisinopril/gabapentin for now -Nephrology consult appreciated. Will follow up on recs 3,Chronic medical conditions -Continue home meds DVT ppx: ALPS only, on Eliquis IV Access Regular Diet FC Dispo: pending PT eval. An ultrasound needs to be obtained. It is possible that she has some issue with regards to obstructive uropathy. Would also obtain a post void residual. 2. Would favor obtaining a straight cath culture 3. Would obtain quantitative immunoglobulins. 4. Strict intakes and outputs and daily weights. 5. If she requires treatment for any gastroesophageal reflux disease, would avoid the PPIs for now and would choose famotidine as the drug of choice. Ranitidine competitively inhibits the secretion of creatinine and spuriously raises the serum creatinine. #6 would not favor an indwelling Cuevas since she is recovering renal function Problem List: 1. UTI (urinary tract infection) 2. Weakness 3. Acute kidney failure 4. Hypertension Pain Ratin Pain Location: na Pain Goal: Remain pain free Pain Plan: na Tomorrow's Labs & Rationales: cbc and bep Mary Lindsey 12/09/17 1540: Attending MD Review Statement Attending Statement Attending MD Statement: examined this patient, discuss w/resident/PA/FOUNDATION RELATIONS DIRECTOR, agreed w/resident/PA/FOUNDATION RELATIONS DIRECTOR, reviewed EMR data (avail), discussed with nursing, discussed with case mgmt Attending Assessment/Plan: ALF on CKD- improving. cr down to 3.4. from 5.7 at admission. will cont to monitor closely. will get nephro consult. Will try to get records from PCP to ascertain baseline cr. Hypokalemia- will replace and recheck in am. K is 3.1 today. Encephalopathy secondary to metabolic causes- improving. confusion improving.
[2017-12-09 08:32] LABS: ABSOLUTE BASOPHIL COUNT 0 /CUMM (0.0-0.2); ABSOLUTE EOSINOPHIL COUNT 0.1 /CUMM (0.0-0.7); ABSOLUTE GRANULOCYTE CT 4.8 /CUMM (1.4-6.5); ABSOLUTE LYMPH COUNT 1.3 /CUMM (1.2-3.4); ABSOLUTE MONOCYTE COUNT 0.9 /CUMM (0.10-0.60); BASOPHIL % 0.1 % (0.0-2.0); EOSINOPHIL % 1.9 % (0-5); GRANULOCYTE % 66.7 % (42.2-75.2); HEMATOCRIT 22.9 % (37-47); MEAN CORPUSCULAR HGB 31.5 PG (27.0-31.0); MEAN CORPUSCULAR HGB CONC 33.6 G/DL (33.0-37.0); MEAN CORPUSCULAR VOLUME 93.6 FL (81.0-99.0); MEAN PLATELET VOLUME 7.4 FL (7.4-10.4); PLATELET COUNT 273 /CUMM (130-400); RBC DISTRIBUTION WIDTH 15.8 % (11.5-14.5); RED BLOOD CELL CT 2.45 /CUMM (4.20-5.40); WHITE BLOOD CELL COUNT 7.2 /CUMM (4.8-10.8)
--- NOTE | 2017-12-09 13:05 | Cons- Nephrology ---
General Information and HPI Consulting Request Date of Consult: 12/09/17 Requested By: Ramu Godinez MD Reason for Consult: Acute kidney injury Source of Information: patient, family, old records Exam Limitations: patient's age History of Present Illness: This 87-year-old woman has a history of smoldering myeloma, hypertension and severe osteoporosis. She is treated with monthly Zometa injections for which she is due next week for the myeloma. She now presents with severe kidney failure after having dental work on Friday. She had received 2 doses of clindamycin. She had an episode of loose stool on . She apparently was seen by Dr. Huber Perry on Friday who had advised the patient to come to the emergency room. She finally agreed to present to the emergency room on Friday. At that point, her serum creatinine was found to be 5.7. A urine culture was obtained which grew multiple organisms and was discarded. A repeat culture grew the same thing. No blood culture was obtained. Aside from the clindamycin, there were no new medicines. She is on Eliquis at home for reasons that she is unaware. She lives with her daughter who also reports she is not sure as to why she is on the Eliquis. Her myeloma was found at the time that she had repair of her left hip. Plasma cells were found on the pathologic specimen. Skeletal survey was negative. As noted, she does not use any Advil relieves. She is described as having gastroesophageal reflux disease and has been on omeprazole. She apparently, because of not feeling well, had been placed on a Medrol dose pack the week before last. Her daughter reports that the patient was lying in the sun for a protracted period of time on Friday and not taking much fluid in. She does not use any nonsteroidal anti-inflammatory drugs because the Eliquis. She otherwise has no history of kidney stones or kidney infections. She does complain of nocturia 3 or 4 but consumes fluid before retiring for the evening. Reviewing her lab work in [facility], in September 2016 her serum creatinine was 0.6. In October 2016 was 0.9. In November 2016 it was 1.0. In June of this year, the serum creatinine was 1.20. In August of this year likewise 1.20. Her creatinine in on September 24, 2017 was 1.40 on October 21, 2017 1.70 and on November 18, 2017 it was 1.90. Her lambda light chain ratio in her serum was 0.27 on November 18, 2017. She had 705 mg/dL of immunoglobulin G on November 18, 2017. She denies any dysuria or polyuria. There is no family history of renal disease. Allergies/Medications Allergies: Coded Allergies: Penicillins (UNKNOWN 08/29/15) Sulfa (Sulfonamide Antibiotics) (UNKNOWN 08/29/15) Uncoded Allergies: MULTIPLE CHEMICAL SENSITIVITIES (08/29/15) Home Med List: Albuterol Sulfate (Proventil Hfa) 6.7 GM HFA.AER.AD 2 PUF INH TIDPRN BREATHING (Reported) Apixaban (Eliquis) 5 MG TABLET 1 TAB PO BID Blood Thinner (Reported) Atorvastatin Calcium 10 MG TABLET 1 TAB PO DAILY HLD (Reported) Cyanocobalamin (Vitamin B-12) 1,000 MCG TABLET 1 TAB PO DAILY Supplement Escitalopram Oxalate 10 MG TABLET 1 TAB PO DAILY Mental (Reported) Fluticasone Propionate 16 GM SPRAY.SUSP 2 SPRAY NASB DAILY NEEDED PRN ALLERGIES (Reported) Fluticasone/Salmeterol (Advair 250-50 Diskus) 1 EACH BLST.W.DEV 1 PUF INH BID SICK BUILDING SYNDROME (Reported) Gabapentin 300 MG CAPSULE 1 CAP PO BID NERVE PAIN (Reported) Guaifenesin (Mucinex) 1,200 MG TAB.ER.12H 0.5 TAB PO BID MUCUS (Reported) Polyethylene Glycol 3350 (Miralax) 119 GM POWDER 17 GM PO DAILY PRN CONSTIPATION Sennosides/Docusate Sodium (Senna-Time S Tablet) 1 EACH TABLET 1 TAB PO AT BEDTIME PRN CONSTIPATION Vit A/Vit C/Vit E/Zinc/Copper (Preservision Areds Tablet) 1 EACH TABLET 2 TAB PO D EYES (Reported) Current Medications: Current Medications Sig/Manas Start time Last Medication Dose Route Stop Time Status Admin Acetaminophen 650 MG Q6P PRN 12/06 2130 AC PO Albuterol Sulfate 2 PUF TIDPRN 12/07 0130 AC INH Apixaban 5 MG BID 12/07 0900 AC 12/09 PO 0950 Atorvastatin Calcium 10 MG DAILY 12/07 09 AC 12/09 PO 0950 Ceftriaxone Sodium 1,000 MG Q24H 12/08 1999 AC 12/08 IV 2122 Cyanocobalamin 1,000 MCG DAILY 12/07 0900 AC 12/09 PO 0950 Escitalopram Oxalate 10 MG DAILY 12/07 0900 AC 12/09 PO 0950 Potassium Chloride 40 MEQ ONCE ONE 12/09 0915 DC 12/09 PO 12/09 0916 0950 Sodium Chloride 1,000 ML .Q10H 12/08 0930 AC 12/08 IV 2232 Review of Systems Review of Systems Constitutional: Reports: malaise, weakness. Denies: chills, diaphoresis, fever. EENTM: Reports: hearing changes. Denies: blurred vision, double vision, visual changes , eye pain, ear discharge, ear pain, epistaxis, nasal pain, throat pain. Cardiovascular: Denies: chest pain, edema, orthopena, palpitations, peripheral edema, syncope. Respiratory: Denies: cough, hemoptysis, orthopnea, short of breath, sputum production, stridor. GI: Reports: diarrhea, bowel incontinence, nausea, changes in stool. Denies: distention, melena, bloody stool. Genitourinary: Reports: nocturia. Denies: discharge, dysuria, frequency, hematuria, hesitation. Musculoskeletal: Reports: back pain, joint pain, muscle stiffness. Denies: gout, joint swelling, muscle pain. Skin: Denies: change in skin color, change in hair/nails, dryness, erythema, jaundice. Neurological/Psychological: Reports: weakness. Denies: confusion, depressed, tingling, tremors. Hematologic/Endocrine: Reports: other (Multiple Myeloma). Denies: bruising, bleeding. Past History Travel History Traveled to [place] past 21 day No Medical History Blood Transfusion Hx: No Neurological: NONE EENT: NONE, hearing loss (one ear) Cardiovascular: hypertension, hyperlipidemia Respiratory: ENVIRONMENTAL ASTHMA AND SICK BUILDING SYNDROME PER DAUGHTER Gastrointestinal: GERD Hepatic: NONE Renal: NONE, F/C Musculoskeletal: osteoporosis Psychiatric: anxiety Endocrine: adrenal insufficiency Blood Disorders: multiple myeloma (described as smoldering, on mo) Cancer(s): NONE, see myeloma comment SKIRT MAKER/Reproductive: NONE Surgical History Surgical History: hip replacement Psychosocial History Where Do You Live? Home (daughters house) Who Do You Live With? child (daughter) Services at Home: None Primary Language: [place] Smoking Status: Never Smoked ETOH Use: denies use Illicit Drug Use: denies illicit drug use Employment History Employment: Retired Exam & Diagnostic Data Vital Signs and I&O Vital Signs Date Time Temp Pulse Resp B/P B/P Pulse O2 O2 Flow FiO2 Mean Ox Delivery Rate 12/09 612 99.0 79 20 100/56 95 12/08 2130 97.7 76 20 98/58 98 12/08 1456 98.2 95 18 90/54 95 Intake & Output 12/09 1600 12/09 0400 12/08 1600 12/08 0400 12/07 1600 12/07 0400 Intake Total 900 520 640 605 971 6213 Output Total 100 Balance 900 520 640 100 700 900 Intake, IV 800 400 664 636 1379 Intake, Oral 100 120 340 100 500 0 Number 0 Bowel Movements Output, Urine 100 Patient 174 lb 175 lb Weight Weight Bed scale Measurement Method Physical Exam General Appearance: well developed/nourished, no apparent distress, alert, awake , obese Head: atraumatic, normal appearance Eyes: Bilateral: PERRL, EOMI, pale conjunctivae. Ears, Nose, Throat: hearing grossly normal, moist mucus membranes Neck: normal inspection, supple, trachea mid line Respiratory: normal breath sounds Cardiovascular: regular rate/rhythm Peripheral Pulses: 3+ tibialis posterior (R), 3+ tibialis posterior (L), 3+ dorsalis pedis (R), 3+ dorsalis pedis (L) Gastrointestinal: normal bowel sounds, soft, non-tender Extremities: normal inspection, normal capillary refill, normal range of motion, no edema Cranial Nerves: normal hearing, normal speech, PERRL Skin: intact, normal color, old sundamage, seborrheic keratosis Lymphatic: no anterior cervical pedro Results Pertinent Lab Results: Laboratory Tests 12/09 12/08 0647 0913 Chemistry Sodium (137 - 145 mmol/L) 136 L 144 Potassium (3.5 - 5.1 mmol/L) 3.1 L 3.5 Chloride (98 - 107 mmol/L) 111 H 114 H Carbon Dioxide (22 - 30 mmol/L) 16 L 15 L Anion Gap (5 - 16) 9 15 BUN (7 - 17 mg/dL) 28 H 33 H Creatinine (0.5 - 1.0 mg/dL) 3.4 H 3.7 H Estimated GFR (>60 ml/min) 13 L 12 L BUN/Creatinine Ratio (7 - 25 %) 8.2 8.9 Hematology CBC w Diff NO MAN DIFF REQ NO MAN DIFF REQ WBC (4.8 - 10.8 /CUMM) 7.2 6.5 RBC (4.20 - 5.40 /CUMM) 2.45 L 2.86 L Hgb (12.0 - 16.0 G/DL) 7.7 L 9.0 L Hct (37 - 47 %) 22.9 L 26.5 L MCV (81.0 - 99.0 FL) 93.6 92.9 MCH (27.0 - 31.0 PG) 31.5 H 31.5 H MCHC (33.0 - 37.0 G/DL) 33.6 33.9 RDW (11.5 - 14.5 %) 15.8 H 15.9 H Plt Count (130 - 400 /CUMM) 273 317 MPV (7.4 - 10.4 FL) 7.4 7.9 Gran % (42.2 - 75.2 %) 66.7 85.8 H Lymphocytes % (20.5 - 51.1 %) 18.6 L 10.4 L Monocytes % (1.7 - 9.3 %) 12.7 H 1.7 Eosinophils % (0 - 5 %) 1.9 0.9 Basophils % (0.0 - 2.0 %) 0.1 1.2 Absolute Granulocytes (1.4 - 6.5 /CUMM) 4.8 5.6 Absolute Lymphocytes (1.2 - 3.4 /CUMM) 1.3 0.7 L Absolute Monocytes (0.10 - 0.60 /CUMM) 0.9 H 0.1 Absolute Eosinophils (0.0 - 0.7 /CUMM) 0.1 0.1 Absolute Basophils (0.0 - 0.2 /CUMM) 0 0.1 /12 08/ 1950 1600 Chemistry Sodium (137 - 145 mmol/L) 140 Potassium (3.5 - 5.1 mmol/L) 3.7 Chloride (98 - 107 mmol/L) 111 H Carbon Dioxide (22 - 30 mmol/L) 15 L Anion Gap (5 - 16) 14 BUN (7 - 17 mg/dL) 38 H Creatinine (0.5 - 1.0 mg/dL) 4.0 H Estimated GFR (>60 ml/min) 11 L BUN/Creatinine Ratio (7 - 25 %) 9.5 Hematology CBC w Diff NO MAN DIFF REQ WBC (4.8 - 10.8 /CUMM) 7.7 RBC (4.20 - 5.40 /CUMM) 2.79 L Hgb (12.0 - 16.0 G/DL) 8.7 L Hct (37 - 47 %) 26.2 L MCV (81.0 - 99.0 FL) 93.8 MCH (27.0 - 31.0 PG) 31.3 H MCHC (33.0 - 37.0 G/DL) 33.3 RDW (11.5 - 14.5 %) 16.6 H Plt Count (130 - 400 /CUMM) 312 MPV (7.4 - 10.4 FL) 7.6 Gran % (42.2 - 75.2 %) 80.5 H Lymphocytes % (20.5 - 51.1 %) 8.4 L Monocytes % (1.7 - 9.3 %) 9.1 Eosinophils % (0 - 5 %) 1.4 Basophils % (0.0 - 2.0 %) 0.6 Absolute Granulocytes (1.4 - 6.5 /CUMM) 6.2 Absolute Lymphocytes (1.2 - 3.4 /CUMM) 0.6 L Absolute Monocytes (0.10 - 0.60 /CUMM) 0.7 H Absolute Eosinophils (0.0 - 0.7 /CUMM) 0.1 Absolute Basophils (0.0 - 0.2 /CUMM) 0 Urines Urine Osmolality (300 - 1000 MOSM/KG) 329 Ur Random Creatinine (mg/dL) 29.0 Ur Random Sodium (30 - 90 mmol/L) 107 H Ur Random Potassium (mmol/L) 21.6 Fraction Sodium Excret (<1% %) 12.3 H 12 12/06 0755 1935 Chemistry Sodium (137 - 145 mmol/L) 141 136 L Potassium (3.5 - 5.1 mmol/L) 4.3 4.8 Chloride (98 - 107 mmol/L) 113 H 106 Carbon Dioxide (22 - 30 mmol/L) 15 L 12 L Anion Gap (5 - 16) 13 17 H BUN (7 - 17 mg/dL) 46 H 56 H Creatinine (0.5 - 1.0 mg/dL) 4.7 H 5.7 *H Estimated GFR (>60 ml/min) 9 L 7 L BUN/Creatinine Ratio (7 - 25 %) 9.8 9.8 Glucose (65 - 99 mg/dL) 100 H Lactic Acid (0.7 - 2.1 mmol/L) 1.4 Calcium (8.4 - 10.2 mg/dL) 8.1 L Total Bilirubin (0.2 - 1.3 mg/dL) 0.7 AST (14 - 36 U/L) 18 ALT (9 - 52 U/L) 23 Alkaline Phosphatase (<127 U/L) 80 Creatine Kinase (30 - 135 U/L) 44 Total Protein (6.3 - 8.2 g/dL) 6.5 Albumin (3.5 - 5.0 g/dL) 3.1 L Globulin (1.9 - 4.2 gm/dL) 3.4 Albumin/Globulin Ratio (1.1 - 2.2 %) 0.9 L Hematology CBC w Diff NO MAN DIFF REQ NO MAN DIFF REQ WBC (4.8 - 10.8 /CUMM) 9.3 13.8 H RBC (4.20 - 5.40 /CUMM) 2.62 L 2.93 L Hgb (12.0 - 16.0 G/DL) 8.1 L 9.1 L Hct (37 - 47 %) 24.5 L 27.5 L MCV (81.0 - 99.0 FL) 93.6 93.9 MCH (27.0 - 31.0 PG) 31.1 H 31.3 H MCHC (33.0 - 37.0 G/DL) 33.3 33.3 RDW (11.5 - 14.5 %) 16.0 H 16.0 H Plt Count (130 - 400 /CUMM) 321 334 MPV (7.4 - 10.4 FL) 7.5 7.5 Gran % (42.2 - 75.2 %) 81.1 H 76.7 H Lymphocytes % (20.5 - 51.1 %) 7.9 L 13.6 L Monocytes % (1.7 - 9.3 %) 8.9 6.8 Eosinophils % (0 - 5 %) 1.7 1.9 Basophils % (0.0 - 2.0 %) 0.4 1.0 Absolute Granulocytes (1.4 - 6.5 /CUMM) 7.5 H 10.6 H Absolute Lymphocytes (1.2 - 3.4 /CUMM) 0.7 L 1.9 Absolute Monocytes (0.10 - 0.60 /CUMM) 0.8 H 0.9 H Absolute Eosinophils (0.0 - 0.7 /CUMM) 0.2 0.3 Absolute Basophils (0.0 - 0.2 /CUMM) 0 0.1 Urines Urine Color (YEL,AMB,STR) YEL Urine Clarity (CLEAR) CLDY H Urine pH (5.0 - 8.0) 6.0 Ur Specific [place] (1.001 - 1.035) 1.025 Urine Protein (NEG,<30 MG/DL) 100 H Urine Ketones (NEG) NEG Urine Nitrite (NEG) NEG Urine Bilirubin (NEG) NEG Urine Urobilinogen (0.1 - 1.0 EU/dl) 0.2 Ur Leukocyte Esterase (NEG) LARGE H Ur Microscopic SEDIMENT EXAMINED Urine RBC (0 - 5 /HPF) 1-3 Urine WBC (0 - 2 /HPF) 5-10 H Urine Bacteria (NEG/NONE) MANY H Urine Hemoglobin (NEG) MOD H Urine Glucose (N MG/DL) NEG Assessment/Plan Assessment/Recommendations Assessment: 1. Acute kidney injury. The precise etiology is not clear. She presented with a fractional excretion of sodium that was elevated. She has not received any contrast within the last week or so. She had received which she describes or her daughter describes as a Medrol Dosepak the week before. 2 doses of clindamycin should not cause ATN. Volume depletion in the face of the use of lisinopril could very well because ATN. She seems to be getting better with fluids. She is not ready for discharge. The other issue here that has been raised is whether or not she has had an episode of sepsis of urinary origin. Keep in mind, she is an 87-year-old woman with multiple myeloma. It is quite possible that she will not present with an elevated temperature. Her underlying myeloma coupled with the use of the Medrol Dosepak would by definition make her immunosuppressed. In addition, she carries a diagnosis of adrenal insufficiency. Keeping in mind her blood pressure was not particularly low when she presented to the emergency room. Could this be myeloma kidney? Specifically, could this be cast nephropathy? This is doubtful given the recent data seen in [facility]. She is followed closely by Dr. Isidro Elise. 2. Smoldering myeloma She likely will require quantitative immunoglobulins as well as a kappa lambda light chain ratio to ensure that her myeloma has been stable. 3. Cystitis?/Sepsis of urinary origin?. She presents without a fever but with evidence of at least a cystitis coupled with pyuria and a positive leukocyte esterase. 2 cultures obtained presumably by clean-catch were nonrevealing. They were consistent with contaminant. This would suggest that a straight cath needs to be obtained in order to truly delineate as to whether or not she does have cystitis. It may have been helpful, given her presentation of a change in mental status, coupled with her advanced age and history of smoldering myeloma recently on a Medrol Dosepak to obtain blood cultures upon presentation. The fact that she is survived argues against significant systemic infection. 4. Hypertension. She was on 40 mg a day of lisinopril. This is a fairly significant dose. Clearly would hold the SUSU inhibitor for the time being. It is conceivable that she was simply volume depleted and taking her SUSU inhibitor. 5. Gastroesophageal reflux disease. Given the fact interstitial nephritis has been described with proton pump inhibitors, would favor holding these for now Recommendations: 1. An ultrasound needs to be obtained. It is possible that she has some issue with regards to obstructive uropathy. Would also obtain a post void residual. 2. Would favor obtaining a straight cath culture 3. Would obtain quantitative immunoglobulins. 4. Strict intakes and outputs and daily weights. 5. If she requires treatment for any gastroesophageal reflux disease, would avoid the PPIs for now and would choose famotidine as the drug of choice. Ranitidine competitively inhibits the secretion of creatinine and spuriously raises the serum creatinine. #6 would not favor an indwelling Cuevas since she is recovering renal function
[2017-12-09 15:41] VITALS: BP 126/60
--- NOTE | 2017-12-09 17:37 | ULTRASOUND REPORT ---
EXAMINATION: US RETROPERITONEAL COMPLETE (RENAL) CLINICAL INFORMATION: Altered mental status. Presumptive diagnosis of acute kidney insufficiency. COMPARISON: CT scan of the abdomen and pelvis dated 02/02/2014. TECHNIQUE: Real-time imaging of the kidneys and bladder. FINDINGS: Evaluation is limited due to patient's body habitus and altered mental status. Patient unable to follow breathing instructions or assume optimal positioning for scanning. RIGHT KIDNEY: 10.2 x 5.4 x 5.3 cm (SAG x AP x TRV). The kidney is normal in size, contour, and echogenicity. Renal cortical thickness is normal. No calculi or focal parenchymal lesions. No hydronephrosis. LEFT KIDNEY: 8.9 x 5.7 x 5.1 cm (SAG x AP x TRV). The kidney is normal in size, contour, and echogenicity. Renal cortical thickness is normal. No calculi or focal parenchymal lesions. No hydronephrosis. BLADDER: Partially distended and grossly unremarkable. Bilateral ureteral jets are not demonstrated. Prevoid bladder volume is 91.3 mL. Postvoid bladder volume was not assessed as the patient is incontinent. IMPRESSION: 1. Mildly atrophic left kidney compared to the right kidney. This may be related to technical factors, rather than a true finding. 2. No evidence of hydronephrosis. 3. Bladder incompletely distended, but grossly unremarkable.
[2017-12-09 22:06] VITALS: BP 102/70
[2017-12-10 06:31] VITALS: BP 108/66
--- NOTE | 2017-12-10 07:42 | PN- Housestaff ---
Ajith Lennoni 12/10/17 0742: Subjective Follow-up For: ALF Subjective: Patient was seen and examined at bedside today. She reports she is uncomfortable and has not been eating well. The nurse reports she has been having difficulty swallowing her pills. She has not had a bowel movement since 12/06. She however, denies fever, chills, nausea, vomiting, shortness of breath. I spoke with on the phone today for her. According to him, she is on Eliquis because of a DVT and a hip fracture that she had [facility]. They assessed that she is at a significant risk of recurrent DVT, so she was continued on it. He says he presumes her worsening ALF and falling Hemoglobin is due to progression of her multiple myeloma and suggested she be worked up for that. Review of Systems Constitutional: Reports: see HPI. Objective Last 24 Hrs of Vital Signs/I&O Vital Signs Date Time Temp Pulse Resp B/P B/P Pulse O2 O2 Flow FiO2 Mean Ox Delivery Rate 12/10 1507 98.4 84 20 110/64 99 Room Air 12/10 0853 Nasal 2.0L Cannula 12/10 0847 Nasal 2.0L Cannula 12/10 0631 97.9 68 18 108/66 95 Room Air 12/09 2206 98.1 73 20 102/70 96 Room Air Intake & Output 12/10 1600 12/10 0800 12/10 0000 Intake Total 1040 760 Output Total Balance 1040 760 Intake, IV 800 400 Intake, Oral 240 360 Number 2 1 Bowel Movements Patient 158 lb Weight Weight Bed scale Measurement Method Physical Exam General Appearance: Alert, Oriented X3, Cooperative, Mild Distress Skin: No Rashes Neck: Supple Cardiovascular: Regular Rate, Normal S1, Normal S2 Lungs: Clear to Auscultation Abdomen: Normal Bowel Sounds, Soft, mild tenderness in the epigastric region Last 24 Hrs of Lab/[place] Results Last 24 Hrs of Labs/Mics: Laboratory Tests 12/10/17 0700: Anion Gap 11, Estimated GFR 15 L, BUN/Creatinine Ratio 7.2, CBC w Diff NO MAN DIFF REQ, RBC 2.39 L, MCV 92.8, MCH 31.2 H, MCHC 33.7, RDW 16.4 H, MPV 7.7, Gran % 69.5, Lymphocytes % 15.9 L, Monocytes % 11.2 H, Eosinophils % 3.0, Basophils % 0.4, Absolute Granulocytes 4.9, Absolute Lymphocytes 1.1 L, Absolute Monocytes 0.8 H, Absolute Eosinophils 0.2, Absolute Basophils 0 Microbiology 12/09 1914 URINE ROUT: Urine Culture - RES 12/09 181 BLOOD: Blood Culture - RECD 12/09 175 BLOOD: Blood Culture - RECD 12/09 1415 STOOL: Clostridium difficile Toxin A & B - COLB Assessment/Plan Assessment: Johana Ly is an 87F with PMH multiple myeloma, hypertension, HLD, sciatica, OA, GERD who presents with 5 days of lethargy, dehydration, weakness, diarrhea and poor PO intake. She was sent to ED by her PCP for concerns of dehydration, was confused, found to have UTI on UA and elevated BUN/Cr 56/5.7 with baseline cre 0.9. Her creatnine is 2.9 today. Her Cuevas's is dicontinued and she is able to void on her own. She is alert and orineted to time, place and person today. Problem List 1.Urinary tract infection, uncomplicated 2.Acute kidney injury 2/2 dehydration 3.Chronic normocytic anemia, secondary to underlying multiple myeloma 4.PMH of multiple myeloma, HTN, HLD, asthma w/ sick building syndrome 1.UTI -On Ceftriaxone -Nephrology consult appreciated. Will follow up recommendations. * [facility] kidney ordered for the patient showed no evidence of hydronephrosis. * Her urine samples have been contaminated. Obtained a straight cath sample for her. Awaiting culture results. * Have ordered quantitative immunoglobulins and kappa:bryanna * Ordered blood cultures. Will f/u report * Will have strict I/O charting and daily weights recorded * Ca: 7.1, Phisphorous: 3.4, M.1 * Her K today is 2.7. We are replacing the potassium orally. We would take the decision to add K to her iv after re-checking her potassium levels. * Will order a urine protein:creatinine and follow up on the results. 2.ALF -IVF 100cc/hr -F/u BEP tomorow -Creatinine improved to 2.9 after hydration, FeNa 12.3 -Hold lisinopril/gabapentin for now -Nephrology consult appreciated. Will follow up on recs 3,Chronic medical conditions -Continue home meds Negative urine and blood culture on Day 1 rule out sepsis of urological origin. We will follow up on the culture. She is afebrile and does not have an elevated white count and does not fulfil the sepsis criteria. VT ppx: ALPS only, on Eliquis IV Access Regular Diet FC Dispo: STR Problem List: 1. UTI (urinary tract infection) 2. Weakness 3. Acute kidney failure Pain Ratin Pain Location: na Pain Goal: Remain pain free Pain Plan: na Tomorrow's Labs & Rationales: cbc, bep with Ca, Mg, urine protein:creatinine GretchenRamu 12/10/17 1210: Attending MD Review Statement Attending Statement Attending MD Statement: examined this patient, discuss w/resident/PA/ACQUISITION PROFESSIONAL, agreed w/resident/PA/ACQUISITION PROFESSIONAL, discussed with family, reviewed EMR data (avail), discussed with nursing, discussed with case mgmt, reviewed images, amended to note Attending Assessment/Plan: ALF on CKD- improving. cr improving from 5.7 at admission. will cont to monitor closely. Npehrology appreciated. There is component of ATN + dehydration in her presentation with possible underlying CKD. She is on eliquis for DVT on anticoagulation. Hypokalemia- K 2.7 this am. replace and recheck, add magnesium, no diarhea reported Anemia of chronic disease rule out blood loss anemia. Serial cbc monitoring. PCP suggests anticoagulation for DVT and she has high recurrence for DVT. Mild dysphagia. Choking on food. Obtain speech/swallow. NPO. Continue current care...
[2017-12-10 08:13] LABS: ABSOLUTE BASOPHIL COUNT 0 /CUMM (0.0-0.2); ABSOLUTE EOSINOPHIL COUNT 0.2 /CUMM (0.0-0.7); ABSOLUTE LYMPH COUNT 1.1 /CUMM (1.2-3.4); ABSOLUTE MONOCYTE COUNT 0.8 /CUMM (0.10-0.60)
[2017-12-10 08:25] LABS: ABSOLUTE GRANULOCYTE CT 4.9 /CUMM (1.4-6.5); BASOPHIL % 0.4 % (0.0-2.0); GRANULOCYTE % 69.5 % (42.2-75.2); HEMATOCRIT 22.1 % (37-47); MEAN CORPUSCULAR HGB 31.2 PG (27.0-31.0); MEAN CORPUSCULAR HGB CONC 33.7 G/DL (33.0-37.0); MEAN CORPUSCULAR VOLUME 92.8 FL (81.0-99.0); MEAN PLATELET VOLUME 7.7 FL (7.4-10.4); PLATELET COUNT 244 /CUMM (130-400); RBC DISTRIBUTION WIDTH 16.4 % (11.5-14.5); RED BLOOD CELL CT 2.39 /CUMM (4.20-5.40)
--- NOTE | 2017-12-10 11:03 | PN- Nephrology ---
Assessment/Plan Nephrology Assessment: 1. Acute kidney injury. She is behaving as an ATN. Certainly, her urinary indices were consistent with that diagnosis. 2. Chronic kidney disease? Examining the records as an outpatient, it seems that in the past years so her baseline serum creatinine has slowly risen. This could be due to the biphosphonate that she was receiving monthly. It also could be related perhaps to her underlying myeloma. Although, as noted yesterday, there did not seem to be much in terms of the paraprotein in the bloodstream when she last saw Dr. Fontenot. 3. Smoldering myeloma. 4. Hypokalemia. This reflects ongoing IV fluid administration coupled with poor p.o. intake. Agree with plans to replace the potassium p.o. This is generally more effective than IV. The only other issue, would be whether to add some potassium to the IV fluids. Suggestion: 1. Continue with daily labs 2. Certainly no urgent diuretic need. 3. We will take the liberty of ordering a protein to creatinine ratio. She may benefit from a urine protein electropheresis as well. 4. Given the drop in potassium, it may be helpful to add on a magnesium to the blood work sent. 5. Please add on or recheck a calcium, phosphorus and albumin. Subjective Subjective: Patient is sitting up in a chair. She offers no complaints. Her speech still seems rather slowed. Objective Vital Signs and I&Os Vital Signs Date Time Temp Pulse Resp B/P B/P Pulse O2 O2 Flow FiO2 Mean Ox Delivery Rate 12/10 0853 Nasal 2.0L Cannula 12/10 0847 Nasal 2.0L Cannula 12/10 0631 97.9 68 18 108/66 95 Room Air 12/09 2206 98.1 73 20 102/70 96 Room Air 12/09 1541 97.9 79 20 126/60 96 Room Air Intake & Output 12/10 1600 12/10 0400 12/09 1600 12/09 0400 12/08 1600 12/08 0400 Intake Total 3086 947 6895 520 640 100 Output Total Balance 0236 075 2326 520 640 100 Intake, IV 477 605 7897 400 300 Intake, Oral 240 360 340 120 340 100 Number 1 0 Bowel Movements Patient 158 lb 174 lb Weight Weight Bed scale Measurement Method Physical Exam: General Appearance: well developed/nourished, no apparent distress, alert, awake , obese Head: atraumatic, normal appearance Eyes: Bilateral: PERRL, EOMI, pale conjunctivae. Neck: normal inspection, supple, trachea mid line Respiratory: normal breath sounds Cardiovascular: regular rate/rhythm Gastrointestinal: normal bowel sounds, soft, non-tender Extremities: normal inspection, normal capillary refill, normal range of motion, trace edema Skin: intact, normal color, old sundamage, seborrheic keratosis Current Medications: Current Medications Sig/Manas Start time Last Medication Dose Route Stop Time Status Admin Acetaminophen 650 MG Q6P PRN 12/06 2130 AC PO Albuterol Sulfate 2 PUF TIDPRN 12/07 0130 AC INH Apixaban 5 MG BID 12/07 09 AC 12/10 PO 0936 Atorvastatin Calcium 10 MG DAILY 12/07 09 AC 12/10 PO 0936 Bisacodyl 10 MG ONCE ONE 12/10 1000 DC MO 12/10 1001 Ceftriaxone Sodium 1,000 MG Q24H 12/07 2000 AC 12/09 IV 2045 Cyanocobalamin 1,000 MCG DAILY 12/07 09 AC 12/10 PO 0936 Docusate Sodium 100 MG DAILY 12/10 0959 AC PO Escitalopram Oxalate 10 MG DAILY 12/07 0900 AC 12/10 PO 0936 Patient Medication 1 ED ONE ONE 12/09 1515 DC 12/09 Teaching ED 12/09 1516 1703 Polyethylene Glycol 17 GM DAILY 12/10 0958 AC PO Potassium Chloride 40 MEQ ONCE ONE 12/10 1000 DC PO 12/10 1001 Senna/Docusate Sodium 2 TAB DAILY 12/10 0958 AC PO Sodium Chloride 1,000 ML .Q10H 12/08 0930 AC 12/10 IV 0715 Results Pertinent Lab Results: Laboratory Tests 12/10 12/10 0700 0600 Chemistry Sodium (137 - 145 mmol/L) 137 Potassium (3.5 - 5.1 mmol/L) 2.7 *L Chloride (98 - 107 mmol/L) 111 H Carbon Dioxide (22 - 30 mmol/L) 14 L Anion Gap (5 - 16) 11 BUN (7 - 17 mg/dL) 21 H Creatinine (0.5 - 1.0 mg/dL) 2.9 H Estimated GFR (>60 ml/min) 15 L BUN/Creatinine Ratio (7 - 25 %) 7.2 Hematology CBC w Diff NO MAN DIFF REQ WBC (4.8 - 10.8 /CUMM) 7.0 RBC (4.20 - 5.40 /CUMM) 2.39 L Hgb (12.0 - 16.0 G/DL) 7.4 *L Hct (37 - 47 %) 22.1 L MCV (81.0 - 99.0 FL) 92.8 MCH (27.0 - 31.0 PG) 31.2 H MCHC (33.0 - 37.0 G/DL) 33.7 RDW (11.5 - 14.5 %) 16.4 H Plt Count (130 - 400 /CUMM) 244 MPV (7.4 - 10.4 FL) 7.7 Gran % (42.2 - 75.2 %) 69.5 Lymphocytes % (20.5 - 51.1 %) 15.9 L Monocytes % (1.7 - 9.3 %) 11.2 H Eosinophils % (0 - 5 %) 3.0 Basophils % (0.0 - 2.0 %) 0.4 Absolute Granulocytes (1.4 - 6.5 /CUMM) 4.9 Absolute Lymphocytes (1.2 - 3.4 /CUMM) 1.1 L Absolute Monocytes (0.10 - 0.60 /CUMM) 0.8 H Absolute Eosinophils (0.0 - 0.7 /CUMM) 0.2 Absolute Basophils (0.0 - 0.2 /CUMM) 0 Immunology IgA Pending IgM Pending Miscellaneous Ref Lab Test Result Pending Other Body Source Serum IgG Pending 12/09 12/08 0647 0913 Chemistry Sodium (137 - 145 mmol/L) 136 L 144 Potassium (3.5 - 5.1 mmol/L) 3.1 L 3.5 Chloride (98 - 107 mmol/L) 111 H 114 H Carbon Dioxide (22 - 30 mmol/L) 16 L 15 L Anion Gap (5 - 16) 9 15 BUN (7 - 17 mg/dL) 28 H 33 H Creatinine (0.5 - 1.0 mg/dL) 3.4 H 3.7 H Estimated GFR (>60 ml/min) 13 L 12 L BUN/Creatinine Ratio (7 - 25 %) 8.2 8.9 Hematology CBC w Diff NO MAN DIFF REQ NO MAN DIFF REQ WBC (4.8 - 10.8 /CUMM) 7.2 6.5 RBC (4.20 - 5.40 /CUMM) 2.45 L 2.86 L Hgb (12.0 - 16.0 G/DL) 7.7 L 9.0 L Hct (37 - 47 %) 22.9 L 26.5 L MCV (81.0 - 99.0 FL) 93.6 92.9 MCH (27.0 - 31.0 PG) 31.5 H 31.5 H MCHC (33.0 - 37.0 G/DL) 33.6 33.9 RDW (11.5 - 14.5 %) 15.8 H 15.9 H Plt Count (130 - 400 /CUMM) 273 317 MPV (7.4 - 10.4 FL) 7.4 7.9 Gran % (42.2 - 75.2 %) 66.7 85.8 H Lymphocytes % (20.5 - 51.1 %) 18.6 L 10.4 L Monocytes % (1.7 - 9.3 %) 12.7 H 1.7 Eosinophils % (0 - 5 %) 1.9 0.9 Basophils % (0.0 - 2.0 %) 0.1 1.2 Absolute Granulocytes (1.4 - 6.5 /CUMM) 4.8 5.6 Absolute Lymphocytes (1.2 - 3.4 /CUMM) 1.3 0.7 L Absolute Monocytes (0.10 - 0.60 /CUMM) 0.9 H 0.1 Absolute Eosinophils (0.0 - 0.7 /CUMM) 0.1 0.1 Absolute Basophils (0.0 - 0.2 /CUMM) 0 0.1 12 12/07 1950 1600 Chemistry Sodium (137 - 145 mmol/L) 140 Potassium (3.5 - 5.1 mmol/L) 3.7 Chloride (98 - 107 mmol/L) 111 H Carbon Dioxide (22 - 30 mmol/L) 15 L Anion Gap (5 - 16) 14 BUN (7 - 17 mg/dL) 38 H Creatinine (0.5 - 1.0 mg/dL) 4.0 H Estimated GFR (>60 ml/min) 11 L BUN/Creatinine Ratio (7 - 25 %) 9.5 Hematology CBC w Diff NO MAN DIFF REQ WBC (4.8 - 10.8 /CUMM) 7.7 RBC (4.20 - 5.40 /CUMM) 2.79 L Hgb (12.0 - 16.0 G/DL) 8.7 L Hct (37 - 47 %) 26.2 L MCV (81.0 - 99.0 FL) 93.8 MCH (27.0 - 31.0 PG) 31.3 H MCHC (33.0 - 37.0 G/DL) 33.3 RDW (11.5 - 14.5 %) 16.6 H Plt Count (130 - 400 /CUMM) 312 MPV (7.4 - 10.4 FL) 7.6 Gran % (42.2 - 75.2 %) 80.5 H Lymphocytes % (20.5 - 51.1 %) 8.4 L Monocytes % (1.7 - 9.3 %) 9.1 Eosinophils % (0 - 5 %) 1.4 Basophils % (0.0 - 2.0 %) 0.6 Absolute Granulocytes (1.4 - 6.5 /CUMM) 6.2 Absolute Lymphocytes (1.2 - 3.4 /CUMM) 0.6 L Absolute Monocytes (0.10 - 0.60 /CUMM) 0.7 H Absolute Eosinophils (0.0 - 0.7 /CUMM) 0.1 Absolute Basophils (0.0 - 0.2 /CUMM) 0 Urines Urine Osmolality (300 - 1000 MOSM/KG) 329 Ur Random Creatinine (mg/dL) 29.0 Ur Random Sodium (30 - 90 mmol/L) 107 H Ur Random Potassium (mmol/L) 21.6 Fraction Sodium Excret (<1% %) 12.3 H
[2017-12-10 15:07] VITALS: BP 110/64
--- NOTE | 2017-12-10 15:26 | RADIOLOGY REPORT ---
EXAMINATION: XR PORTABLE CHEST CLINICAL INFORMATION: Dyspnea. Presumptive diagnosis of pulmonary edema. COMPARISON: Chest x-ray dated 01/18/2016. TECHNIQUE: Portable frontal view of the chest was obtained. FINDINGS: The cardiomediastinal silhouette is within normal limits in size. Slight fullness in the pulmonary marj is noted, most likely projectional. Slight elevation of the right hemidiaphragm and right basilar linear reticular opacities are seen, consistent with subsegmental atelectasis. Mild central vascular congestion is seen. No overt pulmonary edema is noted. No focal consolidation or effusion or pneumothorax is seen. The upper lungs appear hyperlucent and findings are suspicious for obstructive lung disease. There is diffuse osteopenia. IMPRESSION: 1. Mild volume loss and presumed atelectatic change in the right lung base. Close clinical correlation is requested. Also recommended follow-up PA and lateral view of the chest to document resolution of these findings. 2. Fullness of the pulmonary marj bilaterally is seen, most likely projectional. This can also be reassessed at the time of the above suggested follow-up PA and lateral view of the chest. 3. There is likely underlying obstructive lung disease. Please correlate clinically. 4. Osteopenia.
[2017-12-10 23:42] VITALS: BP 100/60
[2017-12-11 05:56] VITALS: BP 110/60
--- NOTE | 2017-12-11 07:52 | PN- Housestaff ---
Jo Lennon 12/11/17 0751: Subjective Follow-up For: ALF Subjective: Patient was seen and examined at bedside. She is alert but not oriented. This is a change from her status 2 days ago. She is not able to provide a meaningful history. Review of Systems Constitutional: Reports: see HPI. Objective Last 24 Hrs of Vital Signs/I&O Vital Signs Date Time Temp Pulse Resp B/P B/P Pulse O2 O2 Flow FiO2 Mean Ox Delivery Rate 12/11 2146 98.4 82 20 114/64 95 Room Air 12/11 1529 97.9 83 18 120/60 98 12/11 0556 98.0 73 20 110/60 97 Room Air 12/10 2342 98.3 77 20 100/60 98 Room Air Intake & Output 12/11 1600 12/11 0800 12/11 0000 Intake Total 400 1040 760 Output Total Balance 400 1040 760 Intake, IV 800 400 Intake, Oral 400 240 360 Number 1 1 Bowel Movements Patient 161 lb Weight Physical Exam General Appearance: Alert, Cooperative, No Acute Distress Neck: Supple Cardiovascular: Regular Rate, Normal S1, Normal S2 Lungs: Clear to Auscultation Abdomen: Normal Bowel Sounds, Soft Assessment/Plan Assessment: Johana Ly is an 87F with PMH multiple myeloma, hypertension, HLD, sciatica, OA, GERD who presents with 5 days of lethargy, dehydration, weakness, diarrhea and poor PO intake. She was sent to ED by her PCP for concerns of dehydration, was confused, found to have UTI on UA and elevated BUN/Cr 56/5.7 with baseline cre 0.9. Her creatnine is 2.7 today. Her Cuevas's is dicontinued and she is able to void on her own. She is alert but not oriented today. Problem List 1.Urinary tract infection, uncomplicated 2.Acute kidney injury 2/2 dehydration 3.Chronic normocytic anemia, secondary to underlying multiple myeloma 4.PMH of multiple myeloma, HTN, HLD, asthma w/ sick building syndrome 1.UTI -On Ceftriaxone -Nephrology consult appreciated. Will follow up recommendations. * [facility] kidney ordered for the patient showed no evidence of hydronephrosis. * Her urine samples have been contaminated. Obtained a straight cath sample for her. Awaiting culture results. * Have ordered quantitative immunoglobulins and kappa:bryanna * Blood culture sterile. * Will have strict I/O charting and daily weights recorded * Ca: 7.1, Phisphorous: 3.4, M.1 * Her K today is 3.1. We are replacing the potassium orally. 20mEq K added to her iv fluids * Will order a urine protein:creatinine and follow up on the results. 2.ALF -IVF 100cc/hr -F/u BEP tomorow -Creatinine improved to 2.7 after hydration, FeNa 12.3 -Hold lisinopril/gabapentin for now -Nephrology consult appreciated. Will follow up on recs 3,Chronic medical conditions -Continue home meds Negative urine and blood culture on Day 2 rule out sepsis of urological origin. We will follow up on the culture. She is afebrile and does not have an elevated white count and does not fulfil the sepsis criteria. VT ppx: ALPS only, on Eliquis IV Access Regular Diet FC Dispo: STR Problem List: 1. UTI (urinary tract infection) 2. Acute kidney failure 3. S/P ORIF (open reduction internal fixation) fracture 4. Hypertension Pain Ratin Pain Location: na Pain Goal: Remain pain free Pain Plan: na Tomorrow's Labs & Rationales: cbc and bep Ramu Godinez 12/11/17 1316: Attending MD Review Statement Attending Statement Attending MD Statement: examined this patient, discuss w/resident/PA/NUCLEAR REACTOR TECHNICIAN, agreed w/resident/PA/NUCLEAR REACTOR TECHNICIAN, discussed with family, reviewed EMR data (avail), discussed with nursing, discussed with case mgmt, reviewed images, amended to note Attending Assessment/Plan: ALF on CKD- improving. cr improving from 5.7 at admission. Npehrology appreciated. There is component of ATN + dehydration in her presentation with possible underlying CKD. She is on eliquis for DVT on anticoagulation. Hypokalemia- K 2.7 yesterday. Awaited labs this am. No diarhea reported Anemia of chronic disease rule out blood loss anemia. Serial cbc monitoring. Await labs. PCP suggests anticoagulation for DVT and she has high recurrence for DVT. Poor PO intake Speech/swallow recs follow. Discharge planning based on labs and rehab placement.
--- NOTE | 2017-12-11 12:08 | Discharge Summary ---
Visit Information Visit Dates Admission Date: 12/06/17 Discharge Date: 12/12/17 Hospital Course Course Attending Physician: Ramu Godinez MD Primary Care Physician: Huber Hawk MD Hospital Course: 87F with PMH multiple myeloma, hypertension, HLD, sciatica, OA, GERD who presents with 5 days of lethargy, dehydration, weakness, diarrhea and poor PO intake. She was sent to ED by her PCP for concerns of dehydration, was confused, found to have UTI on UA and elevated BUN/Cr 56/5.7 with baseline cre 0.9. Problem List 1.Urinary tract infection, uncomplicated 2.Acute kidney injury 2/2 dehydration 3.Chronic normocytic anemia, secondary to underlying multiple myeloma 4.PMH of multiple myeloma, HTN, HLD, asthma w/ sick building syndrome 1.UTI -Treated with ceftriaxone for 6 days. Pt leukocytosis resolved and remained afebrile with no urinary complaints. Negative urine andd blood cultures. 2.ALF Received aggresive IVF,creatinine trended down from 5.7 to 2.7 on discharge date. Renal u/s did not show any obstruction/hydronephrosis. Etiology was not clear regarding her ALF, thought to be ATN from infectious vs medication. 3,Chronic medical conditions: multiple myeloma, hypertension, HLD, sciatica, OA, GERD -Her home meds were continued. Workup for her smoldering myeloma was sent home. Allergies: Coded Allergies: Penicillins (UNKNOWN 08/29/15) Sulfa (Sulfonamide Antibiotics) (UNKNOWN 08/29/15) Uncoded Allergies: MULTIPLE CHEMICAL SENSITIVITIES (08/29/15) Disposition Summary Disposition Principal Diagnosis: UTI Additional Diagnosis: ALF Discharge Disposition: SNF Discharge Instructions General Discharge Information Code Status: Full Code Patient's Diet: HEART HEALTHY PUREE WITH THIN LIQUIDS Patient's Activity: TOLERATED Follow-Up Instructions/Appts: F/U WITH PCP WITHIN 1 WEEK F/U WITH TRIMMING CUTTER MACHINE WITHIN 1 WEEK Medications at Discharge Discharge Medications: Continue taking these medications: Albuterol Sulfate (Proventil Hfa) 6.7 GM HFA.AER.AD 2 Puff Inhale through mouth THREE TIMES A DAY NEEDED Comments: NOT GIVEN IN HOSPITAL Fluticasone Propionate (Fluticasone Propionate) 16 GM SPRAY.SUSP 2 [place] Both sides of nose DAILY NEEDED as needed for ALLERGIES Qty = 16 Comments: NOT GIVEN IN HOSPITAL Fluticasone/Salmeterol (Advair 250-50 Diskus) 1 EACH BLST.W.DEV 1 Puff Inhale through mouth TWICE DAILY Qty = 60 Comments: NOT GIVEN IN HOSPITAL Vit A/Vit C/Vit E/Zinc/Copper (Preservision Areds Tablet) 1 EACH TABLET 2 Tablet ORAL Every Day Comments: Last Taken:01/22/16 Time:1000 NOT GIVEN THIS ADMISSION Gabapentin (Gabapentin) 300 MG CAPSULE 1 Capsule ORAL TWICE DAILY Qty = 90 Comments: Last Taken:01/22/16 Time:1000 NOT GIVEN THIS ADMISSION Guaifenesin (Mucinex) 1,200 MG TAB.ER.12H 0.5 Tablet ORAL TWICE DAILY Comments: NOT GIVEN IN HOSPITAL Cyanocobalamin (Vitamin B-12) 1,000 MCG TABLET 1 Tablet ORAL DAILY Qty = 30 Comments: Last Taken: 12/12/17 Time: 10:00AM Sennosides/Docusate Sodium (Senna-Time S Tablet) 1 EACH TABLET 1 Tablet ORAL AT BEDTIME as needed for CONSTIPATION Qty = 30 Comments: Last Taken: 12/12/17 Time: 10:00AM Polyethylene Glycol 3350 (Miralax) 119 GM POWDER 17 Gram ORAL DAILY as needed for CONSTIPATION Days = 28 Comments: NOT GIVEN IN HOSPITAL Apixaban (Eliquis) 5 MG TABLET 1 Tablet ORAL TWICE DAILY Comments: Last Taken: 12/12/17 Time: 10:00AM Escitalopram Oxalate (Escitalopram Oxalate) 10 MG TABLET 1 Tablet ORAL DAILY Comments: Last Taken: 12/12/17 Time: 10:00AM Atorvastatin Calcium (Atorvastatin Calcium) 10 MG TABLET 1 Tablet ORAL DAILY Comments: Last Taken: 12/12/17 Time: 10:00AM Pantoprazole Sodium (Pantoprazole Sodium) 40 MG TABLET.DR 1 Tablet ORAL DAILY Qty = 30 Comments: NOT GIVEN IN HOSPITAL This prescription has been renewed Tramadol HCl (Tramadol HCl) 50 MG TABLET 1 Tablet ORAL EVERY SIX HOURS NEEDED as needed for PAIN SCALE 4-6 ( MODERATE) Qty = 30 Comments: NOT GIVEN IN HOSPITAL This prescription has been renewed Copies To: Carine PRITCHARD,Huber Coffey Attending MD Review Statement Documenting Attending: Ramu Godinez MD Other Findings: ALF on CKD- improving. cr improving from 5.7 at admission to 2.4 at discharge. Npehrology appreciated. There is component of ATN + dehydration in her presentation with possible underlying CKD. She is on eliquis for DVT on anticoagulation. Hypokalemia- resolved. Encourage PO intake. Anemia of chronic disease. cbc stable. PCP Dr Vogel suggests anticoagulation for DVT and she has high recurrence for DVT. Poor PO intake. Encourage PO hydration. Dementia with forgetfulness. Baseline as per daughter who is bedside. Discharge planning to rehab placement.
--- NOTE | 2017-12-11 12:15 | PN- Nephrology ---
Assessment/Plan Nephrology Assessment: 1. Acute kidney injury. No obvious cause save perhaps volume depletion coupled with the use of an SUSU inhibitor. She is refusing blood work this morning. As I was about to see the patient, the patient's daughter arrived and encouraged the patient both to allow the phlebotomy as well as to eat. 2. History of smoldering myeloma. I am not at all certain that this is playing a role here. 3. Hypokalemia. Likely related to the administration of fluids with recovering renal function. Given the fact she was also noted to be hypocalcemic although mildly, it may be helpful to obtain a serum magnesium. This can be added on to the blood already obtained. Suggestion: 1. Await today's lab work. 2. I was asked as to whether or not she ought to be or able to be discharged. It would be better to make sure that she is eating and not prone to falls before she leaves. Subjective Subjective: Patient seems somewhat withdrawn. Somewhat depressed. Denies any other complaints. Objective Vital Signs and I&Os Vital Signs Date Time Temp Pulse Resp B/P B/P Pulse O2 O2 Flow FiO2 Mean Ox Delivery Rate 12/11 0556 98.0 73 20 110/60 97 Room Air 12/10 2342 98.3 77 20 100/60 98 Room Air 12/10 1507 98.4 84 20 110/64 99 Room Air Intake & Output 12/11 1600 12/11 0400 12/10 1600 12/10 0400 12/09 1600 12/09 0400 Intake Total 5192 763 4282 760 1840 520 Output Total Balance 7813 461 9733 760 1840 520 Intake, IV 447 778 7700 400 1500 400 Intake, Oral 240 360 340 360 340 120 Number 1 4 Bowel Movements Patient 161 lb 158 lb 174 lb Weight Weight Bed scale Measurement Method Physical Exam: General Appearance: well developed/nourished, no apparent distress, alert, awake , obese Head: atraumatic, normal appearance Eyes: Bilateral: PERRL, EOMI, pale conjunctivae. Neck: normal inspection, supple, trachea mid line Respiratory: normal breath sounds Cardiovascular: regular rate/rhythm Gastrointestinal: normal bowel sounds, soft, non-tender Extremities: normal inspection, normal capillary refill, normal range of motion, trace edema Skin: intact, normal color, old sundamage, seborrheic keratosis Results Pertinent Lab Results: Laboratory Tests 12/11 12/10 12/10 1130 1710 0700 Chemistry Sodium (137 - 145 mmol/L) Pending 137 Potassium (3.5 - 5.1 mmol/L) Pending 2.7 *L Chloride (98 - 107 mmol/L) Pending 111 H Carbon Dioxide (22 - 30 mmol/L) Pending 14 L Anion Gap (5 - 16) Pending 11 BUN (7 - 17 mg/dL) Pending 21 H Creatinine (0.5 - 1.0 mg/dL) Pending 2.9 H Estimated GFR (>60 ml/min) 15 L BUN/Creatinine Ratio (7 - 25 %) Pending 7.2 Calcium (8.4 - 10.2 mg/dL) 7.1 L Phosphorus (2.5 - 4.5 mg/dL) 3.4 Magnesium (1.6 - 2.3 mg/dL) 1.1 L Albumin (3.5 - 5.0 g/dL) 2.4 L Hematology CBC w Diff Pending NO MAN DIFF REQ WBC (4.8 - 10.8 /CUMM) Pending 7.0 RBC (4.20 - 5.40 /CUMM) Pending 2.39 L Hgb (12.0 - 16.0 G/DL) Pending 7.4 *L Hct (37 - 47 %) Pending 22.1 L MCV (81.0 - 99.0 FL) Pending 92.8 MCH (27.0 - 31.0 PG) Pending 31.2 H MCHC (33.0 - 37.0 G/DL) Pending 33.7 RDW (11.5 - 14.5 %) Pending 16.4 H Plt Count (130 - 400 /CUMM) Pending 244 MPV (7.4 - 10.4 FL) Pending 7.7 Gran % (42.2 - 75.2 %) 69.5 Lymphocytes % (20.5 - 51.1 %) 15.9 L Monocytes % (1.7 - 9.3 %) 11.2 H Eosinophils % (0 - 5 %) 3.0 Basophils % (0.0 - 2.0 %) 0.4 Absolute Granulocytes (1.4 - 6.5 /CUMM) 4.9 Absolute Lymphocytes (1.2 - 3.4 /CUMM) 1.1 L Absolute Monocytes (0.10 - 0.60 /CUMM) 0.8 H Absolute Eosinophils (0.0 - 0.7 /CUMM) 0.2 Absolute Basophils (0.0 - 0.2 /CUMM) 0 Urines Ur Random Creatinine (mg/dL) 22.0 U Random Total Protein (0 - 12 mg/dL) 75 H Protein/Creatinin Ratio (< 0.2) 3.4 H 15 08/14 0600 0647 Chemistry Sodium (137 - 145 mmol/L) 136 L Potassium (3.5 - 5.1 mmol/L) 3.1 L Chloride (98 - 107 mmol/L) 111 H Carbon Dioxide (22 - 30 mmol/L) 16 L Anion Gap (5 - 16) 9 BUN (7 - 17 mg/dL) 28 H Creatinine (0.5 - 1.0 mg/dL) 3.4 H Estimated GFR (>60 ml/min) 13 L BUN/Creatinine Ratio (7 - 25 %) 8.2 Hematology CBC w Diff NO MAN DIFF REQ WBC (4.8 - 10.8 /CUMM) 7.2 RBC (4.20 - 5.40 /CUMM) 2.45 L Hgb (12.0 - 16.0 G/DL) 7.7 L Hct (37 - 47 %) 22.9 L MCV (81.0 - 99.0 FL) 93.6 MCH (27.0 - 31.0 PG) 31.5 H MCHC (33.0 - 37.0 G/DL) 33.6 RDW (11.5 - 14.5 %) 15.8 H Plt Count (130 - 400 /CUMM) 273 MPV (7.4 - 10.4 FL) 7.4 Gran % (42.2 - 75.2 %) 66.7 Lymphocytes % (20.5 - 51.1 %) 18.6 L Monocytes % (1.7 - 9.3 %) 12.7 H Eosinophils % (0 - 5 %) 1.9 Basophils % (0.0 - 2.0 %) 0.1 Absolute Granulocytes (1.4 - 6.5 /CUMM) 4.8 Absolute Lymphocytes (1.2 - 3.4 /CUMM) 1.3 Absolute Monocytes (0.10 - 0.60 /CUMM) 0.9 H Absolute Eosinophils (0.0 - 0.7 /CUMM) 0.1 Absolute Basophils (0.0 - 0.2 /CUMM) 0 Immunology IgA Pending IgM Pending Miscellaneous Ref Lab Test Result Pending Other Body Source Serum IgG Pending
[2017-12-11 13:15] LABS: ABSOLUTE BASOPHIL COUNT 0 /CUMM (0.0-0.2); ABSOLUTE EOSINOPHIL COUNT 0.1 /CUMM (0.0-0.7); ABSOLUTE GRANULOCYTE CT 6.7 /CUMM (1.4-6.5); ABSOLUTE LYMPH COUNT 1.3 /CUMM (1.2-3.4); ABSOLUTE MONOCYTE COUNT 0.5 /CUMM (0.10-0.60); BASOPHIL % 0.5 % (0.0-2.0); EOSINOPHIL % 1.2 % (0-5); GRANULOCYTE % 77.2 % (42.2-75.2); HEMATOCRIT 24.6 % (37-47); MEAN CORPUSCULAR HGB 31.1 PG (27.0-31.0); MEAN CORPUSCULAR HGB CONC 33.3 G/DL (33.0-37.0); MEAN CORPUSCULAR VOLUME 93.5 FL (81.0-99.0); MEAN PLATELET VOLUME 8.1 FL (7.4-10.4); PLATELET COUNT 293 /CUMM (130-400); RBC DISTRIBUTION WIDTH 16.3 % (11.5-14.5); RED BLOOD CELL CT 2.63 /CUMM (4.20-5.40); WHITE BLOOD CELL COUNT 8.7 /CUMM (4.8-10.8)
[2017-12-11 15:29] VITALS: BP 120/60
[2017-12-11 21:46] VITALS: BP 114/64
[2017-12-12 06:38] VITALS: BP 128/72
--- NOTE | 2017-12-12 07:22 | PN- Housestaff ---
Jo Lennon 12/12/17 0722: Subjective Follow-up For: ALF Subjective: Patient was seen and examined She was doing much better today. She was alert and oriented and eatiing well. She denies any complaints. No fever, chills, nausea, vomiting, chest pain. Review of Systems Constitutional: Reports: see HPI. Objective Last 24 Hrs of Vital Signs/I&O Vital Signs Date Time Temp Pulse Resp B/P B/P Pulse O2 O2 Flow FiO2 Mean Ox Delivery Rate 12/12 1137 98.0 102 20 128/72 12/12 0638 98.0 102 20 128/72 94 Intake & Output 12/12 1600 12/12 0800 12/12 0000 Intake Total 200 900 500 Output Total Balance 200 900 500 Intake, IV 800 400 Intake, Oral 200 100 100 Number 1 Bowel Movements Physical Exam General Appearance: Alert, Oriented X3, Cooperative, No Acute Distress Neck: Supple Cardiovascular: Regular Rate, Normal S1, Normal S2, No Murmurs Lungs: Clear to Auscultation Abdomen: Normal Bowel Sounds, Soft, No Tenderness Extremities: No Edema, Normal Pulses Assessment/Plan Assessment: Johana Ly is an 87F with PMH multiple myeloma, hypertension, HLD, sciatica, OA, GERD who presents with 5 days of lethargy, dehydration, weakness, diarrhea and poor PO intake. She was sent to ED by her PCP for concerns of dehydration, was confused, found to have UTI on UA and elevated BUN/Cr 56/5.7 with baseline cre 0.9. Her creatnine is 2.4 today. Her Cuevas's is dicontinued and she is able to void on her own. She is alert but not oriented today. Problem List 1.Urinary tract infection, uncomplicated 2.Acute kidney injury 2/2 dehydration 3.Chronic normocytic anemia, secondary to underlying multiple myeloma 4.PMH of multiple myeloma, HTN, HLD, asthma w/ sick building syndrome 1.UTI -On Ceftriaxone -Nephrology consult appreciated. Will follow up recommendations. * USG kidney ordered for the patient showed no evidence of hydronephrosis. * Her urine samples have been contaminated. Obtained a straight cath sample for her. Awaiting culture results. * Have ordered quantitative immunoglobulins and kappa:bryanna * Blood culture sterile. * Will have strict I/O charting and daily weights recorded * Ca: 7.1, Phisphorous: 3.4, M.1 * Her K today is 3.5. We are replacing the potassium orally. 20mEq K added to her iv fluids * Will follow up on the results of her protein:creatinine ratio. 2.ALF -IVF 100cc/hr -F/u BEP tomorow -Creatinine improved to 2.4 after hydration, FeNa 12.3 -Nephrology consult appreciated. Will follow up on recs 3,Chronic medical conditions -Continue home meds Negative urine and blood culture on Day 2 rule out sepsis of urological origin. We will follow up on the culture. She is afebrile and does not have an elevated white count and does not fulfil the sepsis criteria. The patient is being discharged to an STR today. VT ppx: ALPS only, on Eliquis IV Access Regular Diet FC Dispo: STR Problem List: 1. UTI (urinary tract infection) 2. Weakness 3. Acute kidney failure 4. Hypertension Pain Ratin Pain Location: na Pain Goal: Remain pain free Pain Plan: na Tomorrow's Labs & Rationales: Ramu Mclain 12/12/17 1058: Attending MD Review Statement Attending Statement Attending MD Statement: examined this patient, discuss w/resident/PA/PHOTOGRAPHIC ENLARGER OPERATOR, agreed w/resident/PA/PHOTOGRAPHIC ENLARGER OPERATOR, discussed with family, reviewed EMR data (avail), discussed with nursing, discussed with case mgmt, reviewed images, amended to note Attending Assessment/Plan: ALF on CKD- improving. cr improving from 5.7 at admission to 2.4 at discharge. Npehrology appreciated. There is component of ATN + dehydration in her presentation with possible underlying CKD. She is on eliquis for DVT on anticoagulation. Hypokalemia- resolved. Encourage PO intake. Anemia of chronic disease. cbc stable. PCP Dr Vogel suggests anticoagulation for DVT and she has high recurrence for DVT. Poor PO intake. Encourage PO hydration. Dementia with forgetfulness. Baseline as per daughter who is bedside. Discharge planning to rehab placement.
[2017-12-12] MEDS ORDERED: TRAMADOL HCL50 M1 PO (07:44)
[2017-12-12] MEDS ORDERED: PANTOPRAZOLE SO40 M1 PO (07:44)
[2017-12-12] MEDS ORDERED: LIDOCAINE1 EACH TOP (11:33)
[2017-12-12] MEDS ORDERED: CRESTOR10 M1 PO (11:33)
[2017-12-12 11:37] VITALS: BP 128/72
== END 2017-12-12 12:02 | DRG 683 ==
LOC: ERH 18:44 → 2NA 20:23 → ERHI 20:23 → ENRESERV 20:50 → 2NA 21:51 → ENTRNSPT 21:51 → EDTRNSPTSTS 22:01 → EDTRNSPT 22:01 → 2NA 22:09 → CMPTRNSPT 22:17 → 2NA 12-08 07:18
PROVIDERS: Emergency Medicine; Hospitalist; Student in an Organized Health Care Education/Training Program
DX: N17.0 Acute kidney failure with tubular necrosis (principal); E87.1 Hypo-osmolality and hyponatremia; C90.00 Multiple myeloma not having achieved remission; N39.0 Urinary tract infection, site not specified; J45.998 Other asthma; E86.0 Dehydration; I12.9 Hypertensive chronic kidney disease with stage 1 through stage 4 chronic kidney disease, or unspecified chronic kidney disease; N18.9 Chronic kidney disease, unspecified; F03.90 Unspecified dementia, unspecified severity, without behavioral disturbance, psychotic disturbance, mood disturbance, and anxiety; M81.0 Age-related osteoporosis without current pathological fracture; K21.9 Gastro-esophageal reflux disease without esophagitis; E78.5 Hyperlipidemia, unspecified; E87.6 Hypokalemia; D63.8 Anemia in other chronic diseases classified elsewhere
CPT/HCPCS: 2NASP; 83883; 84133; 84300; 36415; 36592; 71045; 76775; 81001; 82436; 82570; 82784; 87040; 87086; 96374; 97110-GO; 97116-GO; 97162-GP; 97530-GO; J0696; J1644; J3250; J3480; J3490

== ENCOUNTER 2017-12-30 12:20 | Inpatient (IN) | payer OTHER, MEDICARE ==
[~2017-12-30] VITALS: Ht 162.6 cm; Wt 71.7 kg
[~2017-12-30 12:20] MED LIST changes: +ATORVASTATIN CA10 M1 PO; +CRESTOR10 M1 PO; +ELIQUIS2.5 M1 PO; +ESCITALOPRAM OX10 MG PO; +LIDOCAINE1 EACH TOP; -MUCINEX1200 M1 PO; +MUCINEX600 M1 PO
[2017-12-30] MEDS ORDERED: FERROUS SULFAT325 M3 PO (12:24)
[2017-12-30] MEDS ORDERED: SENNA S TABLET1 EACH PO (12:25)
[2017-12-30] MEDS ORDERED: THIAMINE HCL100 M1 PO (12:26)
[2017-12-30] MEDS ORDERED: POTASSIUM CHLO20 ME2 PO (12:27)
[2017-12-30] MEDS ORDERED: PROTONIX20 M1 PO (12:27)
[2017-12-30] MEDS ORDERED: ALBUTEROL2.5 MG/3 M INH/SOL (12:28)
--- NOTE | 2017-12-30 13:01 | ED GENERAL ADULT ---
History of Present Illness General Chief Complaint: Altered Mental Status Stated Complaint: HYPOTENSION, ALTERED MENTAL STATUS Source: patient, family, old records Exam Limitations: no limitations Vital Signs & Intake/Output Vital Signs & Intake/Output Vital Signs Date Time Temp Pulse Resp B/P B/P Pulse O2 O2 Flow FiO2 Mean Ox Delivery Rate 01/05 1924 97 Room Air 01/05 1600 Room Air 01/05 1400 98.1 80 20 132/70 95 Room Air 01/05 1101 94 Room Air 01/05 0620 98.0 85 20 132/68 95 Room Air 01/05 0000 94 Room Air 01/04 2205 98.3 99 20 140/80 94 Room Air ED Intake and Output 01/05 0000 01/04 1200 Intake Total 1360 50 Output Total Balance 1360 50 Intake, IV 0 Intake, Oral 1360 50 Number 0 0 Bowel Movements Allergies Coded Allergies: Penicillins (UNKNOWN 08/29/15) Sulfa (Sulfonamide Antibiotics) (UNKNOWN 08/29/15) Uncoded Allergies: MULTIPLE CHEMICAL SENSITIVITIES (08/29/15) Triage Note: RECEIVED 87 YO FEMALE BIBA FROM HOME. HOME HEALTH AIDE WAS OVER THE HOUSE THIS AM AND FOUND PT TO BE HYPOTENSIVE; 50/31. 911 CALLED. 18G LARRY STARTED BY PARAMEDICS, IV N/S STARTED IN FIELD, PT RECEIVED 500 ML N/S. B/P UPON ED ARRIVAL 75/42. PT AWAKE, A+O X 1, DISORIENTED TO PLACE AND TIME. ANSWERING QUESTIONS FAIRLY APPROPRIATELY. STAT EKG ORDERED PER PROTOCOL. PT WAS RECENTLY ADMITTED TO [facility] AND TRANSFERRED TO [facility] AND DISCHARGED LAST WEEK. PT WITH RECENT HX OF UTI. Triage Nurses Notes Reviewed? yes HPI: THis is a 87yoF w hx multiple myeloma, hypertension, HLD, sciatica, OA, GERD, recent admission for HPI and hypertension in the setting of urinary tract infection, recently discharged home from rehab facility presenting with lightheadedness and weakness. Patient noted to be hypotensive at home with low blood pressure at triage. sHe denies any pain or shortness of breath or vomiting or diarrhea. She endorses loss of appetite. (Karsten PRITCHARD,Bean) Reconcile Medications Albuterol Sulfate 2.5 MG/3 ML (0.083 %) VIAL.NEB 1 Vial INH/MAUREEN Q4P PRN SOB ( Reported) Apixaban (Eliquis) 2.5 MG TABLET 1 TAB PO BID BLOOD THINNER (Reported) Atorvastatin Calcium 10 MG TABLET 1 TAB PO DAILY HLD (Reported) Cyanocobalamin (Vitamin B-12) 1,000 MCG TABLET 1 TAB PO DAILY Supplement Escitalopram Oxalate 10 MG TABLET 1 TAB PO DAILY Mental (Reported) Ferrous Sulfate 325 MG (65 MG IRON) TABLET 1 TAB PO BID IRON, VITAMIN ( Reported) Fluticasone Propionate 16 GM SPRAY.SUSP 2 SPRAY NASB DAILY NEEDED PRN ALLERGIES (Reported) Fluticasone/Salmeterol (Advair 250-50 Diskus) 1 EACH BLST.W.DEV 1 PUF INH BID SICK BUILDING SYNDROME (Reported) Gabapentin 300 MG CAPSULE 1 CAP PO BID NERVE PAIN (Reported) Guaifenesin (Mucinex) 600 MG TAB.ER.12H 1 TAB PO BID PRN MUCUS (Reported) Pantoprazole Sodium (Protonix) 20 MG TABLET.DR 1 TAB PO DAILY GI (Reported) Polyethylene Glycol 3350 (Miralax) 119 GM POWDER 17 GM PO DAILY PRN CONSTIPATION Potassium Chloride 20 MEQ TAB.ER.PRT 1 TAB PO DAILY VITAMIN SUPPORT (Reported ) Sennosides/Docusate Sodium (Senna S Tablet) 8.6 MG-50 MG TABLET 2 TAB PO QPM GI (Reported) Thiamine HCl 100 MG TABLET 1 TAB PO DAILY VITAMIN SUPPORT (Reported) Vit A/Vit C/Vit E/Zinc/Copper (Preservision Areds Tablet) 1 EACH TABLET 2 TAB PO D EYES (Reported) (Leonel Valera DO) Past History Travel History Traveled to [place] past 21 day No Medical History Any Pertinent Medical History? 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 No (Karsten PRITCHARD,Bean) Review of Systems Review of Systems Constitutional: Reports: malaise, weakness. EENTM: Reports: no symptoms. Respiratory: Reports: no symptoms. Cardiovascular: Reports: no symptoms. GI: Reports: no symptoms. Genitourinary: Reports: no symptoms. Musculoskeletal: Reports: no symptoms. Skin: Reports: no symptoms. Neurological/Psychological: Reports: no symptoms. Hematologic/Endocrine: Reports: no symptoms. Immunologic/Allergic: Reports: no symptoms. (Bean Shelley MD) Physical Exam Physical Exam General Appearance: well developed/nourished, no apparent distress, alert, awake , comfortable Head: atraumatic, normal appearance Eyes: Bilateral: normal appearance, PERRL, EOMI. Ears, Nose, Throat: normal pharynx, normal ENT inspection Neck: normal inspection, supple, full range of motion Respiratory: normal breath sounds, chest non-tender Cardiovascular: regular rate/rhythm, normal peripheral pulses Gastrointestinal: normal bowel sounds, soft, non-tender Back: normal inspection, normal range of motion Extremities: normal inspection, normal capillary refill, normal range of motion, no edema Neurologic/Psych: no motor/sensory deficits, awake, alert, oriented x 3 Core Measures ACS in differential dx? No CVA/TIA Diagnosis: No Sepsis Present: Yes Sepsis Focused Exam Completed? Yes (Bean Shelley MD) Progress Differential Diagnoses I considered the following diagnoses in my evaluation of the patient: Recurrent UTI, hypokalemia, metabolic transient, occult infection, low suspicion for acute hemorrhagic shock. Doubt ACS at this time.Low suspicion also for pulmonary embolism given patient is anticoagulated and has no suggestive symptoms. Plan of Care: Orders Procedure Date/time Status CBC WITHOUT DIFFERENTIAL 01/06 600 Active BASIC ELECTROLYTES PLUS BUN&CR 01/06 600 Active Change service to 01/05 0745 Active CBC WITHOUT DIFFERENTIAL 01/05 600 Complete BASIC ELECTROLYTES PLUS BUN&CR 01/05 600 Complete Treatment of Swallowing 01/05 UNK Complete Therapeutic Activities 01/05 UNK Complete Current Medications Sig/Manas Start time Last Medication Dose Stop Time Status Admin Budesonide/ 2 PUF BID 01/04 2130 AC 01/05 Formoterol Fumarate 0807 (SYMBICORT) Albuterol Sulfate 3 ML Q4P PRN 01/04 1845 AC (Proventil) Risperidone 0.25 MG QPM 01/03 2100 AC 01/04 (risperiDONE) 1949 Guaifenesin/ 10 ML Q4P PRN 01/01 1015 AC 01/04 Dextromethorphan 194 (Robitussin Dm) Atorvastatin Calcium 10 MG 1700 12/31 1700 AC 01/05 (Lipitor) 1649 Multivitamins 1 TAB DAILY 12/31 09 AC 01/05 (Theragran Vitamins) 0807 Omeprazole 20 MG DAILY AC 12/31 0700 AC 01/05 (Prilosec) 0659 Lidocaine 1 PAT DAILY 12/30 213 AC 01/01 (Lidoderm) 09 Apixaban 2.5 MG BID 12/30 2099 AC 01/05 (Eliquis) 08 Ferrous Sulfate 325 MG BID 12/30 2099 AC 01/05 (Feosol) 0806 Senna/Docusate Sodium 2 TAB QPM 12/30 2099 AC 01/04 (Senokot S) 194 Fluticasone 2 SPRAY DAILY NEEDED PRN 12/30 174 AC Propionate (Flonase) Polyethylene Glycol 17 GM DAILY PRN 12/30 174 AC (Miralax) Thiamine HCl 100 MG DAILY 12/30 174 AC 01/05 (Vitamin B1) 0807 Potassium Chloride 20 MEQ DAILY 12/30 174 AC 01/05 (K-Dur) 0806 Cyanocobalamin 1,000 MCG DAILY 12/30 174 AC 01/05 (Vitamin B12) 0807 Escitalopram Oxalate 10 MG DAILY 12/30 174 AC 01/05 (Lexapro) 0807 Laboratory Tests 01/05/18 0636: Anion Gap 7, Estimated GFR 35 L, BUN/Creatinine Ratio 15.7, CBC w Diff NO MAN DIFF REQ, RBC 2.40 L, MCV 96.0, MCH 31.9 H, MCHC 33.2, RDW 16.8 H, MPV 8.4, Gran % 70.5, Lymphocytes % 17.4 L, Monocytes % 8.2, Eosinophils % 2.7, Basophils % 1.2, Absolute Granulocytes 7.5 H, Absolute Lymphocytes 1.8, Absolute Monocytes 0.9 H, Absolute Eosinophils 0.3, Absolute Basophils 0.1 Labs, fluids, antibiotics, urinalysis, reassessment. Workup significant for UTI, HPI, patient fluid responsive and well-appearing reassessment. Patient admitted to inpatient service for further management. Initial ED EKG: normal axis, normal intervals, normal p-waves, normal QRS complex, normal sinus rhythm, no ST T wave changes (Bean Shelley MD) Departure Departure Time of Disposition: 1436 Disposition: STILL A PATIENT Condition: Stable Clinical Impression Primary Impression: UTI (urinary tract infection) Secondary Impressions: ALF (acute kidney injury), Hypotension Referrals: Huber Hawk MD (PCP/Family) Departure Forms: Customer Survey General Discharge Information Admission Note Spoke With: Deja Pascual MD Documentation of Exam: Documentation of any treatments & extenuating circumstances including Concerns Regarding Discharge (functional status, medication knowledge or non-compliance, living conditions, etc.) that warrant an admission rather than observation: IV abx, IV fluids, repeat kidney functino testing, physical therapy, telemetry (Bean Shelley MD) Resident Co-Sign Statement Statement: ED Attending supervision documentation- [] I saw and evaluated the patient. I have also reviewed all the pertinent lab results and diagnostic results. I agree with the findings and the plan of care as documented in the Resident's documentation. [x] I have reviewed the ED Record and agree with the Resident's documentation. [] Additions or exceptions (if any) to the Resident's note and plan are summarized below: [] (Leonel Valera DO) Critical Care Note Critical Care Note Critical Care Time: non-applicable (Bean Shelley MD) Clinical Impression Primary Impression: UTI (urinary tract infection) Secondary Impressions: ALF (acute kidney injury), Hypotension Referrals: Huber Hawk MD (PCP/Family) Departure Forms: Customer Survey General Discharge Information Admission Note Spoke With: Deja Pascual MD Documentation of Exam: Documentation of any treatments & extenuating circumstances including Concerns Regarding Discharge (functional status, medication knowledge or non-compliance, living conditions, etc.) that warrant an admission rather than observation: IV abx, IV fluids, repeat kidney functino testing, physical therapy, telemetry Critical Care Note Critical Care Note Critical Care Time: non-applicable
[2017-12-30 13:28] LABS: ABSOLUTE BASOPHIL COUNT 0 /CUMM (0.0-0.2); ABSOLUTE EOSINOPHIL COUNT 0.2 /CUMM (0.0-0.7); ABSOLUTE GRANULOCYTE CT 4.3 /CUMM (1.4-6.5); ABSOLUTE LYMPH COUNT 1.7 /CUMM (1.2-3.4); ABSOLUTE MONOCYTE COUNT 0.6 /CUMM (0.10-0.60); BASOPHIL % 0.7 % (0.0-2.0); EOSINOPHIL % 2.6 % (0-5); HEMATOCRIT 24.1 % (37-47); MEAN CORPUSCULAR HGB 31.5 PG (27.0-31.0); MEAN CORPUSCULAR HGB CONC 33.1 G/DL (33.0-37.0); PLATELET COUNT 265 /CUMM (130-400); RBC DISTRIBUTION WIDTH 16.5 % (11.5-14.5); RED BLOOD CELL CT 2.54 /CUMM (4.20-5.40); WHITE BLOOD CELL COUNT 6.9 /CUMM (4.8-10.8)
--- NOTE | 2017-12-30 14:22 | RADIOLOGY REPORT ---
EXAMINATION: XR PORTABLE CHEST CLINICAL INFORMATION: Dyspnea. COMPARISON: 12/10/2017 TECHNIQUE: Portable frontal view of the chest was obtained. FINDINGS: There is a 1.1 cm nodule within the right lower lobe. No focal consolidation. No pleural effusion. No pneumothorax. Cardiomediastinal silhouette and pulmonary vascularity are within normal limits. No acute osseous abnormalities. IMPRESSION: No focal consolidation. Nodule measuring 1.1 cm, right lower lung. Recommend CT chest to further assess.
--- NOTE | 2017-12-30 14:51 | History & Physical ---
Argenis Roberts 12/30/17 1451: General Information and HPI Allergies/Medications Allergies: Coded Allergies: Penicillins (UNKNOWN 08/29/15) Sulfa (Sulfonamide Antibiotics) (UNKNOWN 08/29/15) Uncoded Allergies: MULTIPLE CHEMICAL SENSITIVITIES (08/29/15) Home Med list Albuterol Sulfate 2.5 MG/3 ML (0.083 %) VIAL.NEB 1 Vial INH/MAUREEN Q4P PRN SOB ( Reported) Apixaban (Eliquis) 5 MG TABLET 1 TAB PO BID Blood Thinner (Reported) Atorvastatin Calcium 10 MG TABLET 1 TAB PO DAILY HLD (Reported) Cyanocobalamin (Vitamin B-12) 1,000 MCG TABLET 1 TAB PO DAILY Supplement Escitalopram Oxalate 10 MG TABLET 1 TAB PO DAILY Mental (Reported) Ferrous Sulfate 325 MG (65 MG IRON) TABLET 1 TAB PO BID IRON, VITAMIN ( Reported) Fluticasone Propionate 16 GM SPRAY.SUSP 2 SPRAY NASB DAILY NEEDED PRN ALLERGIES (Reported) Fluticasone/Salmeterol (Advair 250-50 Diskus) 1 EACH BLST.W.DEV 1 PUF INH BID SICK BUILDING SYNDROME (Reported) Gabapentin 300 MG CAPSULE 1 CAP PO BID NERVE PAIN (Reported) Guaifenesin (Mucinex) 600 MG TAB.ER.12H 1 TAB PO BID PRN MUCUS (Reported) Pantoprazole Sodium (Protonix) 20 MG TABLET.DR 1 TAB PO DAILY GI (Reported) Polyethylene Glycol 3350 (Miralax) 119 GM POWDER 17 GM PO DAILY PRN CONSTIPATION Potassium Chloride 20 MEQ TAB.ER.PRT 1 TAB PO DAILY VITAMIN SUPPORT (Reported ) Sennosides/Docusate Sodium (Senna S Tablet) 8.6 MG-50 MG TABLET 2 TAB PO QPM GI (Reported) Thiamine HCl 100 MG TABLET 1 TAB PO DAILY VITAMIN SUPPORT (Reported) Vit A/Vit C/Vit E/Zinc/Copper (Preservision Areds Tablet) 1 EACH TABLET 2 TAB PO D EYES (Reported) Past History Travel History Traveled to [place] past 21 day No Medical History Neurological: NONE EENT: NONE, hearing loss (one ear) Cardiovascular: hypertension, hyperlipidemia Respiratory: ENVIRONMENTAL ASTHMA AND SICK BUILDING SYNDROME PER DAUGHTER Gastrointestinal: GERD Hepatic: NONE Renal: NONE, F/C Musculoskeletal: osteoporosis Psychiatric: anxiety Endocrine: adrenal insufficiency Blood Disorders: multiple myeloma (described as smoldering, on mo) Cancer(s): NONE, see myeloma comment FIELD ASSOCIATE/Reproductive: NONE History of MRSA: No History of VRE: No History of CDIFF: No Surgical History Surgical History: hip replacement Past Family/Social History Psychosocial History Who Do You Live With? child (daughter) Services at Home: None Primary Language: Syrian Core Measures/Misc (01/12) Cerebrovascular Accident CVA/TIA Diagnosis: No Sepsis (View protocol) Sepsis Present: No If YES complete Sepsis Event Note If YES complete Sepsis Event Note Radha Correa MD 12/30/17 1451: Core Measures/Misc (01/12) Sepsis (View protocol) If YES complete Sepsis Event Note If YES complete Sepsis Event Note Resident Review Statement Other Findings: 81-year-old female with past medical history of multiple myeloma, hypertension, hyperlipidemia, sciatica, osteoarthritis, GERD was brought in from home with a blood pressure recording systolic of 50s, lethargy. Patient was recently discharged from [facility] on 12 December for urinary tract infection/UTI treated with ceftriaxone. Patient was seen by Dr. Portillo in 2016 for syncope. Admission vitals Temperature 98.1, blood pressure 90/58, saturating 96% at room air, respiratory rate 18, pulse rate 84 Labs Pending blood culture, urine culture WBC 6.9, hemoglobin 8, platelet count 269, sodium 137, potassium 3.6, BUN 17, creatinine 3.1, lactic acid 1.6, calcium 7.2, albumin 2.8, troponin 0 0.01 ED treatment Normal saline bolus thousand mL 2 Ceftriaxone thousand IV once Chest x-ray Right lower lobe lung nodule 1.1 cm. Assessment and plan Acute on chronic kidney injury Hypotension-possibly secondary due to urinary tract infection Home medication Albuterol Eliquis 5 mg twice daily Atorvastatin 10 mg Vitamin B12 Escitalopram 10 mg daily Iron 1 tablet twice daily Fluticasone nasal spray Gabapentin 300 twice daily Pantoprazole 20 mg daily KCl 20 mEq daily Tramadol 51 every 6 as needed Thiamine 100 daily Admitted to telemetry IV fluids at 75 mL/h
--- NOTE | 2017-12-30 16:21 | History & Physical ---
Narda Schmitt 12/30/17 1621: General Information and HPI MD Statement: I have seen and personally examined EBONY HICKEY and documented this H&P. The patient is a 87 year old F who presented with a patient stated chief complaint of [UTI]. 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 Patient was recently discharged from [facility] on 12 December for urinary tract infection/UTI treated with ceftriaxone. Patient was seen by Dr. Portillo in 2016 for syncope. Matthias is a poor historian and most info was obtained from daughter in room with patient. that she was recently discharged from [facility] to home from recent admission to [place] w/ UTI/ALF/Hypotension, treated w/ Ceftriaxone and sent to [facility] and was discharged on 2017 to further work with home PT, however now brought back to ER cc of weakness while walking with PT, lethargy, and low BP measured by visiting nurse. Allergies/Medications Allergies: Coded Allergies: Penicillins (UNKNOWN 08/29/15) Sulfa (Sulfonamide Antibiotics) (UNKNOWN 08/29/15) Uncoded Allergies: MULTIPLE CHEMICAL SENSITIVITIES (08/29/15) Home Med list Albuterol Sulfate 2.5 MG/3 ML (0.083 %) VIAL.NEB 1 Vial INH/MAUREEN Q4P PRN SOB ( Reported) Apixaban (Eliquis) 5 MG TABLET 1 TAB PO BID Blood Thinner (Reported) Atorvastatin Calcium 10 MG TABLET 1 TAB PO DAILY HLD (Reported) Cyanocobalamin (Vitamin B-12) 1,000 MCG TABLET 1 TAB PO DAILY Supplement Escitalopram Oxalate 10 MG TABLET 1 TAB PO DAILY Mental (Reported) Ferrous Sulfate 325 MG (65 MG IRON) TABLET 1 TAB PO BID IRON, VITAMIN ( Reported) Fluticasone Propionate 16 GM SPRAY.SUSP 2 SPRAY NASB DAILY NEEDED PRN ALLERGIES (Reported) Fluticasone/Salmeterol (Advair 250-50 Diskus) 1 EACH BLST.W.DEV 1 PUF INH BID SICK BUILDING SYNDROME (Reported) Gabapentin 300 MG CAPSULE 1 CAP PO BID NERVE PAIN (Reported) Guaifenesin (Mucinex) 600 MG TAB.ER.12H 1 TAB PO BID PRN MUCUS (Reported) Pantoprazole Sodium (Protonix) 20 MG TABLET.DR 1 TAB PO DAILY GI (Reported) Polyethylene Glycol 3350 (Miralax) 119 GM POWDER 17 GM PO DAILY PRN CONSTIPATION Potassium Chloride 20 MEQ TAB.ER.PRT 1 TAB PO DAILY VITAMIN SUPPORT (Reported ) Sennosides/Docusate Sodium (Senna S Tablet) 8.6 MG-50 MG TABLET 2 TAB PO QPM GI (Reported) Thiamine HCl 100 MG TABLET 1 TAB PO DAILY VITAMIN SUPPORT (Reported) Vit A/Vit C/Vit E/Zinc/Copper (Preservision Areds Tablet) 1 EACH TABLET 2 TAB PO D EYES (Reported) Past History Travel History Traveled to [place] past 21 day No Medical History Neurological: NONE EENT: NONE, hearing loss (one ear) Cardiovascular: hypertension, hyperlipidemia Respiratory: ENVIRONMENTAL ASTHMA AND SICK BUILDING SYNDROME PER DAUGHTER Gastrointestinal: GERD Hepatic: NONE Renal: NONE, F/C Musculoskeletal: osteoporosis Psychiatric: anxiety Endocrine: adrenal insufficiency Blood Disorders: multiple myeloma (described as smoldering, on mo) Cancer(s): NONE, see myeloma comment MILKING WORKER/Reproductive: NONE History of MRSA: No History of VRE: No History of CDIFF: No Surgical History Surgical History: hip replacement Past Family/Social History Psychosocial History Who Do You Live With? child (daughter) Services at Home: None Primary Language: Salvadorean Smoking Status: Never Smoked ETOH Use: denies use Illicit Drug Use: denies illicit drug use Review of Systems Review of Systems Constitutional: Reports: see HPI. Exam & Diagnostic Data Last 24 Hrs of Vital Signs/I&O Vital Signs Date Time Temp Pulse Resp B/P B/P Pulse O2 O2 Flow FiO2 Mean Ox Delivery Rate 12/30 1740 Room Air 12/30 1624 87 18 96/56 99 Room Air 12/30 1522 98.0 85 18 90/51 98 Room Air 12/30 1434 96 Room Air 12/30 1402 90/58 12/30 1249 82/54 12/30 1236 98.1 84 18 75/42 97 Room Air Intake & Output 12/30 1600 12/30 0800 12/30 0000 Intake Total Output Total 200 Balance -200 Output, Urine 200 Patient 72.575 kg Weight Weight Estimated Measurement Method Physical Exam General Appearance Alert, Oriented X3, Cooperative, No Acute Distress, chills w/ o fever Skin No Rashes, No Breakdown, No Significant Lesion Skin Temp/Moisture Exam: Warm/Dry Sepsis Skin Exam (color): Normal for Ethnicity HEENT Atraumatic, PERRLA, EOMI Neck Supple, No JVD Cardiovascular Regular Rate, Normal S1, Normal S2 Lungs Clear to Auscultation, Normal Air Movement Abdomen Normal Bowel Sounds, Soft, No Tenderness Neurological Normal Speech, Strength at 5/5 X4 Ext, Normal Tone, Sensation Intact Extremities Normal Pulses, No Tenderness/Swelling, trace edema BLEs Last 24 Hrs of Labs/Keaton: Laboratory Tests 12/30/17 1429: Urinalysis LIGHT H, Urine Color YEL, Urine Clarity CLDY H, Urine pH 6.0, Ur Specific [place] >= 1.030, Urine Protein 100 H, Urine Ketones NEG, Urine Nitrite NEG, Urine Bilirubin NEG, Urine Urobilinogen 0.2, Ur Leukocyte Esterase LARGE H, Ur Microscopic SEDIMENT EXAMINED, Urine RBC 10-15 H, Urine WBC PACKD H, Ur Epithelial Cells RARE, Urine Bacteria MANY H, Urine Hemoglobin MOD H, Urine Glucose NEG 12/30/17 1307: Anion Gap 12, Estimated GFR 14 L, BUN/Creatinine Ratio 5.5 L, Glucose 102 H, Lactic Acid 1.6, Calcium 7.2 L, Total Bilirubin 0.4, AST 23, ALT 26, Alkaline Phosphatase 64, Troponin I < 0.01, Total Protein 5.7 L, Albumin 2.8 L, Globulin 2.9, Albumin/Globulin Ratio 1.0 L, CBC w Diff NO MAN DIFF REQ, RBC 2.54 L, MCV 95.0, MCH 31.5 H, MCHC 33.1, RDW 16.5 H, MPV 8.0, Gran % 63.0, Lymphocytes % 24.3, Monocytes % 9.4 H, Eosinophils % 2.6, Basophils % 0.7, Absolute Granulocytes 4.3, Absolute Lymphocytes 1.7, Absolute Monocytes 0.6, Absolute Eosinophils 0.2, Absolute Basophils 0 Microbiology 12/30 1429 URINE ROUT: Urine Culture - RECD 12/30 1355 BLOOD: Blood Culture - RECD 12/30 1307 BLOOD: Blood Culture - RECD Assessment/Plan Assessment: Admission vitals Temperature 98.1, blood pressure 90/58, saturating 96% at room air, respiratory rate 18, pulse rate 84 Labs Pending blood culture, urine culture WBC 6.9, hemoglobin 8, platelet count 269, sodium 137, potassium 3.6, BUN 17, creatinine 3.1, lactic acid 1.6, calcium 7.2, albumin 2.8, troponin 0 0.01 ED treatment Normal saline bolus thousand mL 2 Ceftriaxone thousand IV once Chest x-ray Right lower lobe lung nodule 1.1 cm. Problem List #Urinary tract infection, uncomplicated #Acute kidney injury 2/2 dehydration #Chronic normocytic anemia, secondary to underlying multiple myeloma #PMH of multiple myeloma, HTN, HLD, asthma w/ sick building syndrome - Admit to general medicine - Vitals per protocol, monitor I&O per protocol. - If SOB, may need TRC/Neb inpatient. Currently patient was doing well under RA. - PT/OT in the AM - Continuous fluid hydration at 125cc/hr. - Continue ceftriaxone 1g qd for UTI coverage and tailor per clinical course - Continue all home meds, except HOLDING lisinopril/Gabapentin due to ALF. Decrease Eliquis 2.5mg BID till renal function recovers. - Pt is relative stable for now from M/M stand point. Consider inform Dr. Elise for patient's admission, and if needed, Hem/Onc consult by primary team. - Consider nephro consult if patient's renal function is not improving. - Pending cultures including urine - Pain per pathway DVT PPX Eliquis + ALPS Regular Diet Full Code As Ranked By This Provider Problem List: 1. Hypotension 2. ALF (acute kidney injury) 3. UTI (urinary tract infection) Core Measures/Misc (01/12) Acute Coronary Syndrome ACS Diagnosis: No Congestive Heart Failure Congestive Heart Failure Diagnosis No Cerebrovascular Accident CVA/TIA Diagnosis: No tPA Risk/Benefit discussion I have discussed the risks, benefits, and alternatives of Alteplase treatment including: - If given promptly, can resolve or have major improvement in stroke symptoms. - Bleeding (hemorrhage) is the most common risk that can occur. - Bleeding may occur into the brain and cause~senior living serious disability~ including - this is rare, affecting about 1% of patients. - Alternative treatments with proven benefit for patients with stroke include aspirin and care in a specialized unit where staff members pay careful attention to a variety of basic aspects of care. VTE (View Protocol) VTE Risk Factors Age>40 No Mechanical VTE Prophylaxis d/t N/A MechProphylax Ordered No VTE Pharm Prophylaxis d/t NA PharmProphylax ordered Sepsis (View protocol) Sepsis Present: No If YES complete Sepsis Event Note If YES complete Sepsis Event Note Samara PRITCHARDDeja 12/30/17 1641: Core Measures/Misc (01/12) Sepsis (View protocol) If YES complete Sepsis Event Note If YES complete Sepsis Event Note Attending MD Review Statement Attending Statement Attending MD Statement: examined this patient, discuss w/resident/PA/RESEARCH AFFILIATE, agreed w/resident/PA/RESEARCH AFFILIATE, reviewed EMR data (avail) Attending Assessment/Plan: 87F PMH multiple myeloma, hypertension, HLD, sciatica, OA, GERD, recently discharged from [facility] after being treated for UTI and ALF, sent to [facility] for short term rehab, discharged home from there on 12/28/17, brought back here by daughter for worsening weakness, chills, and confusion. Patient was below her baseline but still well when she was discharged from [facility]. At baseline she walks unassisted and sometimes uses a walker, but when she was discharged from [facility] she was an assist of 1. The daughter found her progressively weaker since being discharged home, and the patient was unable to ambulate or participate with home PT today. Here, she is sleepy and a poor historian. She appears ill and has chills. Her straight cath revealed thick yellow urine. She is afebrile here. Her BP was 70/40 on arrival and has improved to 100/50 after IV fluids. Her labs reveal ALF. 1. UTI 2. ALF 3. Dehydration 4. Deconditoning Plan - Admit to general medicine - IV hydration - Ceftriaxone - Renal ultrasound - Continue home medications - PT eval - DVT PPx
--- NOTE | 2017-12-30 21:44 | ULTRASOUND REPORT ---
EXAMINATION: US RETROPERITONEAL COMPLETE (RENAL) CLINICAL INFORMATION: UTI with sepsis. Acute kidney injury.. COMPARISON: Renal ultrasound 12/09/[address] abdomen pelvis 02/02/2014 TECHNIQUE: Real-time imaging of the kidneys and bladder. Examination significantly limited as patient continued to move throughout the examination and could not follow breathing instructions. FINDINGS: RIGHT KIDNEY: 5.0 x 5.1 x 4.5 cm (SAG x AP x TRV). The kidney is normal in size, contour, and echogenicity. Renal cortical thickness is maintained. Mild hydronephrosis suspected. No gross renal calculi. LEFT KIDNEY: 8.5 x 5.2 x 4.7 cm (SAG x AP x TRV). The kidney is normal in size, contour, and echogenicity. Renal cortical thickness is maintained. No gross renal calculi or hydronephrosis. BLADDER: Only partially distended and therefore difficult to accurately evaluate. Bilateral ureteral jets are not demonstrated. IMPRESSION: 1. Examination significantly limited as patient continued to move throughout the examination and could not follow breathing instructions. 2. Suspected mild right-sided hydronephrosis although imaging of the right kidney is suboptimal. No definitive renal calculi appreciated. Recommend repeat imaging once the patient is able to follow instructions. Alternatively, an abdominal CT may be obtained for further characterization.
[2017-12-30 22:15] VITALS: BP 104/58
[2017-12-31 06:18] VITALS: BP 112/60
--- NOTE | 2017-12-31 07:30 | PN- Housestaff ---
See Addendum Subjective Follow-up For: UTI ALF Decreased PO intake Subjective: Patient was seen and examined at bedside. She was alert, but oriented only to person. She refuses to eat any hospital food and almost choked on her pills in the morning. She refused kendra crackers or any other solid food during her swallow eval. Denies fever, chills, nausea, vomiting, SOB. Review of Systems Constitutional: Reports: see HPI. Objective Last 24 Hrs of Vital Signs/I&O Vital Signs Date Time Temp Pulse Resp B/P B/P Pulse O2 O2 Flow FiO2 Mean Ox Delivery Rate 12/31 0800 Room Air 12/31 0618 97.6 82 18 112/60 96 Room Air 12/31 0000 99 Room Air 12/30 2215 98.0 83 18 104/58 99 12/30 2102 Room Air Room Air 12/30 1740 Room Air 12/30 1624 87 18 96/56 99 Room Air Intake & Output 12/31 1600 12/31 0800 12/31 0000 Intake Total 925 1120 600 Output Total Balance 925 1120 600 Intake, IV 875 1000 500 Intake, Oral 50 120 100 Number 1 1 Bowel Movements Patient 150 lb 150 lb Weight Physical Exam General Appearance: Alert, Cooperative, No Acute Distress Skin: No Rashes Neck: Supple Cardiovascular: Regular Rate, Normal S1, Normal S2 Lungs: Clear to Auscultation Abdomen: Normal Bowel Sounds, Soft, No Tenderness Assessment/Plan Assessment: 81-year-old female with past medical history of multiple myeloma, 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 The patient has raised Creatinine on admission. In the morning today, she was alert, oriented to only place. She is refusing any kind of hospital food but did have coffee brought to her by her daughter. Problems: 1. UTI 2. ALF 3. Decreased PO intake 4. Anemia UTI with ALF -The patient is on Ceftriaxone -She is on fluids @100cc an hour -Urine cultures pending. will follow up on reports -Creatine improved from 3.1 to 2.4 -Nephrology consult if her creatinine does not improve Anemia Hgb:7.3 We will hold off on intervention for now. Would trend CBC Decreased PO intake The patient refused any kind of solid food during swallow evaluation She almost choked on her pills in the morning Swallow evaluation done: Would order diet of puree and thin liquids DVT prophylaxis addressed with Spenceris Code status: Full code - Problem List: 1. Hypotension 2. ALF (acute kidney injury) 3. UTI (urinary tract infection) 4. Weakness 5. Acute kidney failure Pain Ratin Pain Location: none Pain Goal: Remain pain free Pain Plan: none Tomorrow's Labs & Rationales: cbc and bep
[2017-12-31 08:50] LABS: ABSOLUTE BASOPHIL COUNT 0 /CUMM (0.0-0.2); ABSOLUTE EOSINOPHIL COUNT 0.3 /CUMM (0.0-0.7); ABSOLUTE GRANULOCYTE CT 3.7 /CUMM (1.4-6.5); ABSOLUTE MONOCYTE COUNT 0.6 /CUMM (0.10-0.60); RED BLOOD CELL CT 2.27 /CUMM (4.20-5.40); WHITE BLOOD CELL COUNT 6.3 /CUMM (4.8-10.8)
[2017-12-31 09:01] LABS: ABSOLUTE LYMPH COUNT 1.6 /CUMM (1.2-3.4); BASOPHIL % 0.6 % (0.0-2.0); EOSINOPHIL % 5.3 % (0-5); HEMATOCRIT 21.9 % (37-47); MEAN CORPUSCULAR HGB 32.1 PG (27.0-31.0); MEAN CORPUSCULAR HGB CONC 33.3 G/DL (33.0-37.0); MEAN CORPUSCULAR VOLUME 96.3 FL (81.0-99.0); MEAN PLATELET VOLUME 8.7 FL (7.4-10.4); PLATELET COUNT 254 /CUMM (130-400); RBC DISTRIBUTION WIDTH 16.3 % (11.5-14.5)
[2017-12-31 15:36] VITALS: BP 96/50
[2017-12-31 21:00] VITALS: BP 110/60
[2018-01-01 06:38] VITALS: BP 118/64
--- NOTE | 2018-01-01 07:26 | PN- Housestaff ---
Lalito Gonzalez 01/01/18 0725: Subjective Follow-up For: UTI ALF Decreased PO intake Complaints: no complaints Subjective: Patient was seen and examined at bedside. She was alert, but disoriented. On asking how she was doing the patient was unable to provide history. Patient is afebrile however was covered with extra blankets this morning. Swallow evaluation recommended pured food. Review of Systems Constitutional: Reports: see HPI. Objective Last 24 Hrs of Vital Signs/I&O Vital Signs Date Time Temp Pulse Resp B/P B/P Pulse O2 O2 Flow FiO2 Mean Ox Delivery Rate 01/01 638 97.2 85 20 118/64 98 12/31 2100 98.3 87 20 110/60 97 12/31 1536 97.9 98 18 96/50 94 Intake & Output 01/01 1600 01/01 0800 01/01 0000 Intake Total 340 680 Output Total Balance 340 680 Intake, IV 100 Intake, Oral 240 680 Number 3 Bowel Movements Patient 158 lb Weight Physical Exam General Appearance: Alert, Oriented X3, Cooperative, No Acute Distress Cardiovascular: Regular Rate, No Murmurs Lungs: Clear to Auscultation, Normal Air Movement Abdomen: Normal Bowel Sounds, Soft, No Tenderness, No Hepatospenomegaly, No Masses Extremities: bruises Current Medications: Current Medications Sig/Manas Start time Last Medication Dose Route Stop Time Status Admin Acetaminophen 1,000 MG ONCE ONE 01/01 0330 DC 01/01 N/A 1 UNIT IV 01/01 0344 0332 Acetaminophen 0 .STK-MED ONE 01/01 0329 DC IV Acetaminophen 325 MG Q4P PRN 01/01 0130 DC PO Albuterol Sulfate 3 ML Q4P PRN 12/30 1745 AC INH Apixaban 2.5 MG BID 12/30 2099 AC 01/01 PO 09 Atorvastatin Calcium 10 MG 1700 12/31 1700 AC 12/31 PO 1634 Ceftriaxone Sodium 1,000 MG 1400 12/31 1400 AC 01/01 IV 1331 Cyanocobalamin 1,000 MCG DAILY 12/30 1741 AC 01/01 PO 0927 Escitalopram Oxalate 10 MG DAILY 12/30 1741 AC 01/01 PO 09 Ferrous Sulfate 325 MG BID 12/30 2100 AC 01/01 PO 09 Fluticasone 2 SPRAY DAILY NEEDED PRN 12/30 1745 AC Propionate TRESSA Guaifenesin 600 MG BID PRN 12/30 1745 DC PO Guaifenesin/ 10 ML Q4P PRN 01/01 1015 AC Dextromethorphan PO Lidocaine 1 PAT DAILY 12/30 2130 AC 01/01 EXT 0927 Multivitamins 1 TAB DAILY 12/31 0900 AC 01/01 PO 0926 Omeprazole 20 MG DAILY AC 12/31 0700 AC 01/01 PO 0550 Ondansetron HCl 4 MG ONCE ONE 01/01 0330 DC 01/01 IV 01/01 033 0333 Ondansetron HCl 0 .STK-MED ONE 01/01 033 DC .ROUTE Patient Medication 1 ED ONE ONE 01/01 1300 DC Teaching ED 01/01 1301 Polyethylene Glycol 17 GM DAILY PRN 12/30 174 AC PO Potassium Chloride 20 MEQ DAILY 12/30 174 AC 01/01 PO 0926 Senna/Docusate Sodium 2 TAB QPM 12/30 2100 AC PO Thiamine HCl 100 MG DAILY 12/30 174 AC 01/01 PO 0926 Last 24 Hrs of Lab/Keaton Results Last 24 Hrs of Labs/Mics: Laboratory Tests 01/01/18 0630: Anion Gap 7, Estimated GFR 27 L, BUN/Creatinine Ratio 7.2, CBC w Diff NO MAN DIFF REQ, RBC 2.41 L, MCV 95.6, MCH 31.4 H, MCHC 32.8 L, RDW 16.5 H, MPV 8.6 , Gran % 53.6, Lymphocytes % 30.8, Monocytes % 10.9 H, Eosinophils % 4.2, Basophils % 0.5, Absolute Granulocytes 3.9, Absolute Lymphocytes 2.2, Absolute Monocytes 0.8 H, Absolute Eosinophils 0.3, Absolute Basophils 0 Assessment/Plan Assessment: 81-year-old female with past medical history of multiple myeloma, 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 The patient has raised Creatinine on admission. In the morning today, she was alert, oriented to only place. She is refusing any kind of hospital food but did have coffee brought to her by her daughter. Problems: 1. UTI 2. ALF 3. Decreased PO intake 4. Anemia UTI -The patient is on Ceftriaxone -Urine cultures -enterococcus and yeast, fuller sensitive. -Continue ceftriaxone , discuss about ampicillin for this poatient ALF -Creatine improved from 3.1 to 1.8 -She is on fluids @125cc an hour- 1 bag -monitor UO Normocytic normochromic anemia Hgb:7.6, possibly dilutional We will hold off on intervention for now. Decreased PO intake The patient refused any kind of solid food during swallow evaluation, she is on pured food PT dot said - d/c to STR as D/C home is unsfe DVT prophylaxis addressed with Michael Code status: Full code - Problem List: 1. UTI (urinary tract infection) Pain Ratin Pain Location: none Pain Goal: Remain pain free Pain Plan: none Tomorrow's Labs & Rationales: none Mary Lindsey 01/01/18 1358: Attending MD Review Statement Attending Statement Attending MD Statement: examined this patient, discuss w/resident/PA/NEUROLOGY STROKE PHYSICIAN, agreed w/resident/PA/NEUROLOGY STROKE PHYSICIAN, discussed with family, reviewed EMR data (avail), discussed with nursing, discussed with case mgmt Attending Assessment/Plan: ALF- in pt with underlying smoldering MM. pt was given iv fluids and her Cr is back down to 1.8 . will cont to trend her cr. pt was not eating very good at home according to family at bedside. Pt was recently dced home from [facility]. Dysphagia- on pureed diet and thin liquids. UTI- cultures growing Gm postivie cocci. will f/u on final results. dw pt and pts family at bedside the care plan. manager of case management working with family for STR placement.
--- NOTE | 2018-01-01 08:10 | Discharge Summary ---
Visit Information Visit Dates Admission Date: 12/30/17 Discharge Date: 01/12/2018 Hospital Course Course Attending Physician: Rosalia PRITCHARD,Mary Coffey Primary Care Physician: Huber Hawk MD Hospital Course: Ms. 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 Patient was recently discharged from [facility] on 12 December for urinary tract infection/UTI treated with ceftriaxone. Patient was seen by Dr. Portillo in 2016 for syncope. Matthias is a poor historian and most info was obtained from daughter in room with patient. that she was recently discharged from [facility] to home from recent admission to [place] w/ UTI/ALF /Hypotension, treated w/ Ceftriaxone and sent to [facility] and was discharged on 12/28/2017 to further work with home PT, however now brought back to ER cc of weakness while walking with PT, lethargy, and low BP measured by visiting nurse. Admission vitals Temperature 98.1, blood pressure 90/58, saturating 96% at room air, respiratory rate 18, pulse rate 84 Labs Pending blood culture, urine culture WBC 6.9, hemoglobin 8, platelet count 269, sodium 137, potassium 3.6, BUN 17, creatinine 3.1, lactic acid 1.6, calcium 7.2, albumin 2.8, troponin 0 0.01 Chest x-ray Right lower lobe lung nodule 1.1 cm. UTI Patient was admitted to [facility] and started on ceftriaxone for a total of 3 days for UTI, that grew enterococcus on urine culture. She was also kept on IVF hydration and improved on kidney function. Delirium She was acutely delirious with altered mental status. Most possibly from underlying infection- urinary tract infection. She was treated with IV antibiotics. She showed significant improvement during the hospital course. She was seen by psychiatrist, advised to take olanzapine 2.5 mg p.o. twice daily. Risperidone, Ramalteon and Melatonin were discontinued. Anemia Patient was found to have hemoglobin 6.7, secondary to multiple myeloma. She received 1 unit of PRBC, noticed improvement of hemoglobin after transfusion. Acute kidney injury Elevated creatinine at the time of admission. Improved after IV hydration. Lisinopril/gabapentin was held due to ALF Hypomagnesemia Mag 1.5, repleted Cough Given her continuous cough, chest x-ray was done which showed no evidence of pneumonia Dysphagia Speech and swallow evaluation was requested. Advised to continue regular diet. Sample Patternmaker was on board. Severe protein calorie malnutrition Her prealbumin was 11. Sample Patternmaker was consulted and followed recommendations DVT PPX Eliquis + ALPS Regular Diet Full Code Allergies: Coded Allergies: Penicillins (UNKNOWN 08/29/15) Sulfa (Sulfonamide Antibiotics) (UNKNOWN 08/29/15) Uncoded Allergies: MULTIPLE CHEMICAL SENSITIVITIES (08/29/15) Pertinent Lab Results: SERVICE DATE: 12/30/17- EXAM TYPE: US - US-RENAL/KIDNEY IMPRESSION: 1. Examination significantly limited as patient continued to move throughout the examination and could not follow breathing instructions. 2. Suspected mild right-sided hydronephrosis although imaging of the right kidney is suboptimal. No definitive renal calculi appreciated. Recommend repeat imaging once the patient is able to follow instructions. Alternatively, an abdominal CT may be obtained for further characterization. SERVICE DATE: 12/30/17-1302 EXAM TYPE: RAD - XRY-PORTABLE CHEST XRAY IMPRESSION: No focal consolidation. Nodule measuring 1.1 cm, right lower lung. Recommend CT chest to further assess. Disposition Summary Disposition Principal Diagnosis: #Urinary tract infection, uncomplicated #Acute kidney injury 2/2 dehydration #Chronic normocytic anemia, secondary to underlying multiple myeloma #PMH of multiple myeloma, HTN, HLD, asthma w/ sick building syndrome Additional Diagnosis: as above Discharge Disposition: SNF Discharge Instructions General Discharge Information Code Status: Full Code Patient's Diet: reg diet Patient's Activity: as tolerated Follow-Up Instructions/Appts: - Please follow up with your primary care physician within 1-2 weeks of discharge. Inform your primary care physician of this admission to [facility]. - Continue your current medications per discharge instructions. - Please watch for these problems: Fever, Chills, Nausea, Vomiting, Shortness of Breath, Productive Cough, Chest Pain/Discomfort, Abdominal Pain, Active Bleeding or Bloody urine/stool. Medications at Discharge Discharge Medications: Stop taking the following medications: Tramadol HCl (Tramadol HCl) 50 MG TABLET ORAL EVERY SIX HOURS NEEDED as needed for PAIN SCALE 4-6 (MODERATE) Qty = 30 Continue taking these medications: Fluticasone Propionate (Fluticasone Propionate) 16 GM SPRAY.SUSP 2 [place] Both sides of nose DAILY NEEDED as needed for ALLERGIES Qty = 16 Comments: NOT GIVEN IN HOSPITAL Fluticasone/Salmeterol (Advair 250-50 Diskus) 1 EACH BLST.W.DEV 1 Puff Inhale through mouth TWICE DAILY Qty = 60 Comments: NOT GIVEN IN HOSPITAL Vit A/Vit C/Vit E/Zinc/Copper (Preservision Areds Tablet) 1 EACH TABLET 2 Tablet ORAL Every Day Comments: Last Taken:01/22/16 Time:1000 NOT GIVEN THIS ADMISSION Gabapentin (Gabapentin) 300 MG CAPSULE 1 Capsule ORAL TWICE DAILY Qty = 90 Comments: Last Taken:01/22/16 Time:1000 NOT GIVEN THIS ADMISSION Guaifenesin (Mucinex) 600 MG TAB.ER.12H 1 Tablet ORAL TWICE DAILY as needed for MUCUS Comments: NOT GIVEN IN HOSPITAL Cyanocobalamin (Vitamin B-12) 1,000 MCG TABLET 1 Tablet ORAL DAILY Qty = 30 Comments: Last Taken: 12/12/17 Time: 10:00AM Polyethylene Glycol 3350 (Miralax) 119 GM POWDER 17 Gram ORAL DAILY as needed for CONSTIPATION Days = 28 Comments: NOT GIVEN IN HOSPITAL Apixaban (Eliquis) 2.5 MG TABLET 1 Tablet ORAL TWICE DAILY Comments: Last Taken: 12/12/17 Time: 10:00AM Escitalopram Oxalate (Escitalopram Oxalate) 10 MG TABLET 1 Tablet ORAL DAILY Comments: Last Taken: 12/12/17 Time: 10:00AM Atorvastatin Calcium (Atorvastatin Calcium) 10 MG TABLET 1 Tablet ORAL DAILY Comments: Last Taken: 12/12/17 Time: 10:00AM Ferrous Sulfate (Ferrous Sulfate) 325 MG (65 MG IRON) TABLET 1 Tablet ORAL TWICE DAILY Sennosides/Docusate Sodium (Senna S Tablet) 8.6 MG-50 MG TABLET 2 Tablet ORAL Every night Thiamine HCl (Thiamine HCl) 100 MG TABLET 1 Tablet ORAL DAILY Potassium Chloride (Potassium Chloride) 20 MEQ TAB.ER.PRT 1 Tablet ORAL DAILY Pantoprazole Sodium (Protonix) 20 MG TABLET.DR 1 Tablet ORAL DAILY Albuterol Sulfate (Albuterol Sulfate) 2.5 MG/3 ML (0.083 %) VIAL.NEB 1 Vial Inhale Solution EVERY 4 HOURS NEEDED as needed for SOB Start taking the following new medications: Olanzapine (Olanzapine) 2.5 MG TABLET 2.5 Milligram ORAL TWICE DAILY Qty = 30 No Refills Copies To: Carine PRITCHARD,Huber Coffey Attending Review Statement Documenting Attending: Mary Lindsey MD Other Findings: Agree with the above discharge plan
[2018-01-01 08:24] LABS: ABSOLUTE BASOPHIL COUNT 0 /CUMM (0.0-0.2); ABSOLUTE EOSINOPHIL COUNT 0.3 /CUMM (0.0-0.7); ABSOLUTE GRANULOCYTE CT 3.9 /CUMM (1.4-6.5); ABSOLUTE LYMPH COUNT 2.2 /CUMM (1.2-3.4); ABSOLUTE MONOCYTE COUNT 0.8 /CUMM (0.10-0.60); BASOPHIL % 0.5 % (0.0-2.0); EOSINOPHIL % 4.2 % (0-5); GRANULOCYTE % 53.6 % (42.2-75.2); MEAN CORPUSCULAR HGB 31.4 PG (27.0-31.0); MEAN CORPUSCULAR HGB CONC 32.8 G/DL (33.0-37.0); MEAN CORPUSCULAR VOLUME 95.6 FL (81.0-99.0); MEAN PLATELET VOLUME 8.6 FL (7.4-10.4); RBC DISTRIBUTION WIDTH 16.5 % (11.5-14.5); RED BLOOD CELL CT 2.41 /CUMM (4.20-5.40); WHITE BLOOD CELL COUNT 7.3 /CUMM (4.8-10.8)
[2018-01-01 09:05] LABS: PLATELET COUNT 274 /CUMM (130-400)
--- NOTE | 2018-01-01 10:48 | Patient Discharge Instructions ---
Discharge Instructions General Discharge Information You were seen/treated for: MULTIPLE MYELOMA, UTI, ACUTE KIDNEY INJURY Special Instructions: - Please follow up with your primary care physician within 1-2 weeks of discharge. Inform your primary care physician of this admission to [facility]. - Continue your current medications per discharge instructions. Begin new medications per instruction - Please watch for these problems: Fever, Chills, Nausea, Vomiting, Shortness of Breath, Productive Cough, Chest Pain/Discomfort, Abdominal Pain, Active Bleeding or Bloody urine/stool. Diet Continue normal diet: No Recommended Diet: Regular Acute Coronary Syndrome Inclusion Criteria At DC or during hospital stay patient has or had the following: ACS DIAGNOSIS No Discharge Core Measures Meds if any: Prescribed or Continued at Discharge Meds if any: NOT Prescribed or Continued at Discharge Congestive Heart Failure Inclusion Criteria At DC or during hospital stay patient has or had the following: CHF DIAGNOSIS No Discharge Core Measures Meds if any: Prescribed or Continued at Discharge Meds if any: NOT Prescribed or Continued at Discharge Cerebrovascular accident Inclusion Criteria At DC or during hospital stay patient has or had the following: CVA/TIA Diagnosis No Discharge Core Measures Meds if any: Prescribed or Continued at Discharge Meds if any: NOT Prescribed or Continued at Discharge Venous thromboembolism Inclusion Criteria VTE Diagnosis No VTE Type NONE VTE Confirmed by (Test) NONE Discharge Core Measures - Per Current guidelines, there needs to be overlap - treatment for the first 5 days of Warfarin therapy. - If discharged on Warfarin prior to 5 days of - overlap therapy, the patient will need to be - assessed for post discharge needs including - *Post discharge parental anticoagulation - *Warfarin and/or parental anticoagulation education - *Follow up date to check INR post discharge At least 5 days overlap therapy as Inpatient No Meds if any: Prescribed or Continued at Discharge Note: Overlap Therapy is Warfarin and Anticoagulant Meds if any: NOT Prescribed or Continued at Discharge
[2018-01-01 14:25] VITALS: BP 110/60
[2018-01-02 05:44] VITALS: BP 100/62
--- NOTE | 2018-01-02 07:57 | PN- Housestaff ---
See Addendum Subjective Follow-up For: UTI ALF Confusion Subjective: Patient was seen and examined at bedside. She was alert but not oriented to time or place. She did have some active visual hallucinations. The nurse reported that the patient did not sleep well las night. Review of Systems Constitutional: Reports: see HPI. Objective Last 24 Hrs of Vital Signs/I&O Vital Signs Date Time Temp Pulse Resp B/P B/P Pulse O2 O2 Flow FiO2 Mean Ox Delivery Rate 01/02 0544 98.0 80 20 100/62 94 Room Air 01/01 1425 98.2 69 20 110/60 93 Room Air Intake & Output 01/02 1600 01/02 0800 01/02 0000 Intake Total 150 300 Output Total Balance 150 300 Intake, IV 150 300 Number 1 Bowel Movements Patient 158 lb Weight Physical Exam General Appearance: Alert, oriented to person Skin: No Rashes Skin Temp/Moisture Exam: Warm/Dry Cardiovascular: Regular Rate, Normal S1, Normal S2 Lungs: Clear to Auscultation Abdomen: Normal Bowel Sounds, Soft, No Tenderness Extremities: No Edema, Normal Pulses Assessment/Plan Assessment: 81-year-old female with past medical history of multiple myeloma, 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 The patient has raised Creatinine on admission. In the morning today, she was alert, oriented to only place. She has been agitated and not sleeping well. She is drinking well but has not been eating well. Problems: 1. UTI 2. ALF 3. Decreased PO intake 4. Anemia UTI with ALF -The patient has had a 3 day course of iv Ceftriaxone. She developed a raised white count this morning. -We are discontinue fluids for the patient today. -Urine cultures are growing Enteroocccus and Yeast -Creatine is at 1.6 today. -She does have leukocytosis to 11.2 this morning Anemia Hgb:7.5 We will hold off on intervention for now. Would trend CBC Decreased PO intake The patient has been drinking well but has not hardly had any soilid food. She has only been able to get Eliquis and Lexapro from amongst her medications. She has been refusing rest of her medications. DVT prophylaxis addressed with Eliquis Code status: Full code Problem List: 1. ALF (acute kidney injury) 2. UTI (urinary tract infection) 3. Weakness Pain Ratin Pain Location: none Pain Goal: Remain pain free Pain Plan: none Tomorrow's Labs & Rationales: cbc and bep
[2018-01-02 08:39] LABS: ABSOLUTE BASOPHIL COUNT 0.2 /CUMM (0.0-0.2); ABSOLUTE EOSINOPHIL COUNT 0.2 /CUMM (0.0-0.7); ABSOLUTE GRANULOCYTE CT 8.7 /CUMM (1.4-6.5); ABSOLUTE LYMPH COUNT 1.3 /CUMM (1.2-3.4); ABSOLUTE MONOCYTE COUNT 0.8 /CUMM (0.10-0.60); BASOPHIL % 1.8 % (0.0-2.0); EOSINOPHIL % 1.8 % (0-5); HEMATOCRIT 22.7 % (37-47); MEAN CORPUSCULAR HGB 31.5 PG (27.0-31.0); MEAN CORPUSCULAR VOLUME 95.6 FL (81.0-99.0); MEAN PLATELET VOLUME 8.6 FL (7.4-10.4); PLATELET COUNT 287 /CUMM (130-400); RBC DISTRIBUTION WIDTH 16.4 % (11.5-14.5); RED BLOOD CELL CT 2.38 /CUMM (4.20-5.40)
[2018-01-02 09:49] LABS: WHITE BLOOD CELL COUNT 11.2 /CUMM (4.8-10.8)
[2018-01-02 13:57] VITALS: BP 130/70
[2018-01-02 22:33] VITALS: BP 110/62
[2018-01-03 06:20] VITALS: BP 132/78
[2018-01-03 08:15] LABS: ABSOLUTE BASOPHIL COUNT 0.1 /CUMM (0.0-0.2); ABSOLUTE EOSINOPHIL COUNT 0.3 /CUMM (0.0-0.7); ABSOLUTE GRANULOCYTE CT 7.9 /CUMM (1.4-6.5); ABSOLUTE LYMPH COUNT 1.8 /CUMM (1.2-3.4); ABSOLUTE MONOCYTE COUNT 1.1 /CUMM (0.10-0.60); BASOPHIL % 0.6 % (0.0-2.0); EOSINOPHIL % 2.6 % (0-5); GRANULOCYTE % 71.1 % (42.2-75.2); HEMATOCRIT 22.4 % (37-47); MEAN CORPUSCULAR HGB 31.5 PG (27.0-31.0); MEAN CORPUSCULAR HGB CONC 32.7 G/DL (33.0-37.0); MEAN CORPUSCULAR VOLUME 96.4 FL (81.0-99.0); MEAN PLATELET VOLUME 8.5 FL (7.4-10.4); PLATELET COUNT 282 /CUMM (130-400); RBC DISTRIBUTION WIDTH 16.8 % (11.5-14.5); RED BLOOD CELL CT 2.33 /CUMM (4.20-5.40); WHITE BLOOD CELL COUNT 11.1 /CUMM (4.8-10.8)
--- NOTE | 2018-01-03 08:52 | PN- Housestaff ---
See Addendum Subjective Follow-up For: UTI Subjective: Patient was seen and examined at bedside. She is agitated, disoriented and incoherent. She does responds to commands. She is anxious and tossing and turning in her bed. She has refused all her medications this morning. The patient safety monitor reported that she hardly slept las night. This is a drastic deterioration in her mental status from yesterday. Review of Systems Constitutional: Reports: see HPI. Objective Last 24 Hrs of Vital Signs/I&O Vital Signs Date Time Temp Pulse Resp B/P B/P Pulse O2 O2 Flow FiO2 Mean Ox Delivery Rate 01/03 0620 98.4 90 18 132/78 96 Room Air 01/02 2233 98.2 99 20 110/62 97 01/02 1415 Room Air Room Air 01/02 1357 98.4 80 20 130/70 94 Room Air Intake & Output 01/03 1600 01/03 0800 01/03 0000 Intake Total 0 480 Output Total Balance 0 480 Intake, IV 0 Intake, Oral 0 480 Number 2 Bowel Movements Physical Exam General Appearance: Alert, Oriented X3, Cooperative, No Acute Distress Neck: Supple Cardiovascular: Regular Rate, Normal S1, Normal S2, No Murmurs Lungs: Clear to Auscultation, Normal Air Movement Abdomen: Normal Bowel Sounds, Soft, No Tenderness Extremities: No Edema, Normal Pulses Assessment/Plan Assessment: 81-year-old female with past medical history of multiple myeloma, 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 The patient has raised Creatinine on admission. The patient has been agitated, incoherant and confused all morning. Problems: 1. UTI 2. ALF 3. Decreased PO intake 4. Anemia 1.UTI with ALF -The patient is currently off antibiotics -The patient is currently off of fluids -Urine cultures are growing Enteroocccus and Yeast -Creatine is at 1.6 today. -She does have leukocytosis to 11.1 this morning 2. Anemia Hgb:7.3 We will hold off on intervention for now. Would trend CBC 3. Decreased PO intake The patient has been drinking well but has not hardly had any soilid food. She has only been able to get Eliquis and Lexapro from amongst her medications. She has been refusing rest of her medications. DVT prophylaxis addressed with Eliquis Code status: Full code Problem List: 1. ALF (acute kidney injury) 2. UTI (urinary tract infection) 3. Weakness 4. Acute kidney failure Pain Ratin Pain Location: none Pain Goal: Remain pain free Pain Plan: none Tomorrow's Labs & Rationales: cbc and bep
[2018-01-03 14:55] VITALS: BP 100/62
--- NOTE | 2018-01-03 17:00 | RADIOLOGY REPORT ---
EXAMINATION: XR PORTABLE CHEST CLINICAL INFORMATION: Productive cough. COMPARISON: Chest done on 12/30/2017. TECHNIQUE: Portable frontal view of the chest was obtained. FINDINGS: Technically limited study due to patient's rotation. Previously documented nodule is not well-visualized within the right lung base. Nonspecific airspace opacities noted at left lung base, appear new. There is no pleural effusion present. The cardiac mediastinal silhouette is within normal limit. IMPRESSION: 1. Technically limited study. 2. Previously documented right lung base nodule is not reproduced in the current study. 3. Interval development of nonspecific airspace disease at left lung base.
[2018-01-03 22:21] VITALS: BP 124/60
[2018-01-04 06:20] VITALS: BP 128/72
--- NOTE | 2018-01-04 08:53 | PN- Housestaff ---
Jo Lennon 01/04/18 0852: Subjective Follow-up For: UTI Confusion Subjective: Patient was seen and examined at bedside. She is alert today. No agitation today. Her mental status improved following Risperidone which was given yesterday. She is still not orinted to time,place or person. Review of Systems Constitutional: Reports: see HPI. Objective Last 24 Hrs of Vital Signs/I&O Vital Signs Date Time Temp Pulse Resp B/P B/P Pulse O2 O2 Flow FiO2 Mean Ox Delivery Rate 01/04 1843 98 Room Air 01/04 1600 Room Air 01/04 1426 98.7 102 18 118/64 98 01/04 0800 Room Air 01/04 0620 98.2 93 18 128/72 94 Room Air 01/04 0000 94 Room Air 01/03 2221 97.9 90 19 124/60 94 Room Air Intake & Output 01/04 1600 01/04 0800 01/04 0000 Intake Total 480 50 880 Output Total Balance 480 50 880 Intake, IV 0 Intake, Oral 480 50 880 Number 0 0 Bowel Movements Physical Exam General Appearance: Alert, Oriented X3, Cooperative, No Acute Distress Neck: Supple Cardiovascular: Regular Rate, Normal S1, Normal S2 Lungs: Clear to Auscultation Abdomen: Normal Bowel Sounds, Soft, No Tenderness Extremities: No Edema, Normal Pulses Assessment/Plan Assessment: 81-year-old female with past medical history of multiple myeloma, 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 after she was found hypotensive at home. The patient has raised Creatinine on admission. There has been an improvement in her mental status following Risperidone administration yesterday Problems: 1. UTI 2. ALF 3. Decreased PO intake 4. Anemia 1.UTI with ALF -The patient is currently off antibiotics -The patient is currently off of fluids -Urine cultures are growing Enteroocccus and Yeast -Creatine is at 1.4 today. 2. Anemia Hgb:7.3 We will hold off on intervention for now. Would trend CBC 3. Decreased PO intake The patient has been drinking well but has not hardly had any soilid food. She has only been able to get Eliquis and Lexapro from amongst her medications. She has been refusing rest of her medications. She is currently on pureed solid with thin liquid diet today. DVT prophylaxis addressed with Eliquis Problem List: 1. ALF (acute kidney injury) 2. UTI (urinary tract infection) 3. Weakness Pain Ratin Pain Location: none Pain Goal: Remain pain free Pain Plan: pathway Tomorrow's Labs & Rationales: cbc and bep Maura Lindseyshyla 01/04/18 1343: Attending MD Review Statement Attending Statement Attending MD Statement: examined this patient, discuss w/resident/PA/FILLING HAULER WEAVING, agreed w/resident/PA/FILLING HAULER WEAVING, reviewed EMR data (avail), discussed with nursing Attending Assessment/Plan: ALF- in pt with underlying smoldering MM. pt was given iv fluids and her Cr is back down to 1.4. will cont to trend her cr. pt was not eating very good at home according to family at bedside. Pt was recently dced home from [facility]. Off iv fluids now. Dysphagia- on pureed diet and thin liquids. UTI- cultures growing Enterococcus. dc iv cefriaxone - got 3 days. Insominia and agitation - Agitation better on risperidone 0.25mg po qhs but pt still did not sleep well. We can give her Melatonin at night is she is not sleeping tonight also. Leukocytosis- cxr done shows no infiltrates. afebrile. cbc stable.
[2018-01-04 09:34] LABS: ABSOLUTE LYMPH COUNT 2.2 /CUMM (1.2-3.4); MEAN CORPUSCULAR HGB CONC 32.8 G/DL (33.0-37.0); PLATELET COUNT 302 /CUMM (130-400); RED BLOOD CELL CT 2.32 /CUMM (4.20-5.40)
[2018-01-04 09:47] LABS: ABSOLUTE BASOPHIL COUNT 0.1 /CUMM (0.0-0.2); ABSOLUTE EOSINOPHIL COUNT 0.3 /CUMM (0.0-0.7); BASOPHIL % 0.6 % (0.0-2.0); EOSINOPHIL % 2.4 % (0-5); GRANULOCYTE % 66.8 % (42.2-75.2); HEMATOCRIT 22.4 % (37-47); MEAN CORPUSCULAR HGB 31.6 PG (27.0-31.0); MEAN CORPUSCULAR VOLUME 96.6 FL (81.0-99.0); MEAN PLATELET VOLUME 8.5 FL (7.4-10.4); RBC DISTRIBUTION WIDTH 16.4 % (11.5-14.5); WHITE BLOOD CELL COUNT 10.5 /CUMM (4.8-10.8)
[2018-01-04 14:26] VITALS: BP 118/64
[2018-01-04 22:05] VITALS: BP 140/80
[2018-01-05 06:20] VITALS: BP 132/68
--- NOTE | 2018-01-05 07:17 | PN- Housestaff ---
Jo Lennon 01/05/18 0716: Subjective Follow-up For: UTI Confusion Subjective: Patient was seen and examined at bedside. She is alert, eating and drinking on her own. Howver, she refuses to ask any questions at all. The nurse reports that she did not sleep well last night. The patient has been pulling at her lines and trying to bite the nurses.She was given Ramalteon, Melatonin along with Risperidone which have not helped her calm down or sleep at night. Review of Systems Constitutional: Reports: see HPI. Objective Last 24 Hrs of Vital Signs/I&O Vital Signs Date Time Temp Pulse Resp B/P B/P Pulse O2 O2 Flow FiO2 Mean Ox Delivery Rate 01/05 1400 98.1 80 20 132/70 95 Room Air 01/05 1101 94 Room Air 01/05 0620 98.0 85 20 132/68 95 Room Air 01/05 0000 94 Room Air 01/04 2205 98.3 99 20 140/80 94 Room Air 01/04 1843 98 Room Air 01/04 1600 Room Air Intake & Output 01/05 1600 01/05 0800 01/05 0000 Intake Total 200 0 880 Output Total Balance 200 0 880 Intake, IV 0 Intake, Oral 200 0 880 Number 0 0 Bowel Movements Physical Exam General Appearance: Alert, Oriented X3, Cooperative, No Acute Distress Cardiovascular: Regular Rate, Normal S1, Normal S2 Lungs: Clear to Auscultation Abdomen: Normal Bowel Sounds, Soft, No Tenderness Extremities: No Edema, Normal Pulses Assessment/Plan Assessment: 81-year-old female with past medical history of multiple myeloma, 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 The patient had her creatinine back to normal at 1.4. She is alert and eating and drinking on her own. However, she refuses to answer any questions. She is agitated and is hititng at and trying to bite the nurses. Problems: 1. UTI 2. ALF 3. Decreased PO intake 4. Anemia 1.UTI with ALF -The patient is currently off antibiotics -The patient is currently off of fluids -Urine cultures are growing Enteroocccus and Yeast -Creatine is at 1.4 today. 2. Anemia Hgb:7.6 We will hold off on intervention for now. Would trend CBC 3. Decreased PO intake The patient does have a good oral intake, She has been taking high protein supplements and ice-cream 4. Altered mental status -The patient is alert but refuses to answer any questions -She has been having insomnia for 4 days now -Risperidone, Ramalteon and Melatonin have not helped her DVT prophylaxis addressed with Michael Problem List: 1. ALF (acute kidney injury) 2. UTI (urinary tract infection) Pain Ratin Pain Location: none Pain Goal: Remain pain free Pain Plan: none Tomorrow's Labs & Rationales: cbc and bep Ramu Godinez 01/05/18 1218: Attending MD Review Statement Attending Statement Attending MD Statement: examined this patient, discuss w/resident/PA/MECHANICAL ENERGY ENGINEER, agreed w/resident/PA/MECHANICAL ENERGY ENGINEER, discussed with family, reviewed EMR data (avail), discussed with nursing, discussed with case mgmt, reviewed images, amended to note Attending Assessment/Plan: ALF- now with improvement with hydration. Poor PO intake. Pt was recently dced home from [facility]. Dysphagia- on pureed diet and thin liquids. UTI resolved. Insominia and agitation - worsening today. Nurse reported hitting staff. Obtain pysch consult. Leukocytosis- cxr done shows no infiltrates. afebrile. cbc stable. Now resolved. Anemia of chronic disease also poor intake might contribute. Add iron pills.
[2018-01-05 08:25] LABS: ABSOLUTE BASOPHIL COUNT 0.1 /CUMM (0.0-0.2); ABSOLUTE EOSINOPHIL COUNT 0.3 /CUMM (0.0-0.7); ABSOLUTE GRANULOCYTE CT 7.5 /CUMM (1.4-6.5); ABSOLUTE LYMPH COUNT 1.8 /CUMM (1.2-3.4); ABSOLUTE MONOCYTE COUNT 0.9 /CUMM (0.10-0.60); BASOPHIL % 1.2 % (0.0-2.0); EOSINOPHIL % 2.7 % (0-5); GRANULOCYTE % 70.5 % (42.2-75.2); MEAN CORPUSCULAR HGB 31.9 PG (27.0-31.0); MEAN CORPUSCULAR HGB CONC 33.2 G/DL (33.0-37.0); MEAN PLATELET VOLUME 8.4 FL (7.4-10.4); PLATELET COUNT 332 /CUMM (130-400); RBC DISTRIBUTION WIDTH 16.8 % (11.5-14.5); WHITE BLOOD CELL COUNT 10.6 /CUMM (4.8-10.8)
[2018-01-05 14:00] VITALS: BP 122/70; BP 132/70
[2018-01-05 22:07] VITALS: BP 116/60
[2018-01-06 06:52] VITALS: BP 120/62
--- NOTE | 2018-01-06 07:15 | PN- Housestaff ---
Jo Lennon 01/06/18 0715: Subjective Follow-up For: UTI Confusion Insomnia Subjective: Patient was seen and examined at bedside. She did not sleep well last night. In the morning, she reponds to her name, but does not respond questions appropriately. She keeps looking and pulling at her iv lines while saying "yes, yes, yes, yes". She turns her head when she is called but does not make eye contact. The patient did spike a fever at 100.3 last night. She seems to have developed a rattling cough over the past 2 days. Review of Systems Constitutional: Reports: see HPI. Objective Last 24 Hrs of Vital Signs/I&O Vital Signs Date Time Temp Pulse Resp B/P B/P Pulse O2 O2 Flow FiO2 Mean Ox Delivery Rate 01/06 0652 98.2 96 20 120/62 86 01/06 0000 Room Air 01/05 2207 100.3 77 20 116/60 98 Room Air 01/05 1924 97 Room Air 01/05 1600 Room Air 01/05 1400 98.1 80 20 132/70 95 Room Air 01/05 1101 94 Room Air Intake & Output 01/06 1600 01/06 0800 01/06 0000 Intake Total 480 120 Output Total Balance 480 120 Intake, Oral 480 120 Physical Exam General Appearance: Alert Neck: Supple Cardiovascular: Regular Rate, Normal S1, Normal S2 Lungs: mild sacattered soft rhonchi Abdomen: Normal Bowel Sounds, Soft Assessment/Plan Assessment: 81-year-old female with past medical history of multiple myeloma, asthma, hypertension, hyperlipidemia, sciatica, osteoarthritis, GERD is admitted to [facility] after she was found hypotensive at home. The patient had her creatinine back to normal at 1.4. The patient responds to her name but does not answer questions appropriately. She did spike a fever of 100.3 overnight. She spit out her medications today. Psych consulted. Would follow up recommendations. Might consider switching her medications to liquid form Problems: 1. UTI 2. ALF 3. Decreased PO intake 4. Anemia 5. Cough Chest X-ray done on January 03 had the following impression 1. Technically limited study. 2. Previously documented right lung base nodule is not reproduced in the current study. 3. Interval development of nonspecific airspace disease at left lung base. 1.UTI with ALF -The patient is currently off antibiotics -The patient is currently off of fluids -Urine cultures are growing Enteroocccus and Yeast -Creatine is at 1.4 today -The patient did spike a fever to 100.3 overnight -Urine cultures, blood cultures, UA sent 2. Anemia Hgb:7.6 We will hold off on intervention for now. Would trend CBC 3. Decreased PO intake -The patient has been refusing food as well as her pills at this time -I talked to the Pharmacy about the possibility of switching Eliquis to Heparin. Would follow up. 4. Altered mental status -The patient responds to her name but does not answer any questions appropriately -Her current mental state is a definite deterioration from the time of her presentation when she was pleasantly confused -She has been having insomnia for 4 days now -Risperidone, Ramalteon and Melatonin have not helped her -Psych consult placed. Will follow recommendations 5. Cough -Ordered chest X-ray. Will follow report DVT prophylaxis addressed with Gilmaqujuan francisco Problem List: 1. ALF (acute kidney injury) 2. Weakness 3. Acute kidney failure 4. Altered mental status Pain Ratin Pain Location: none Pain Goal: Remain pain free Pain Plan: pathway Tomorrow's Labs & Rationales: cbc and bep Ramu Godinez 01/06/18 1119: Attending MD Review Statement Attending Statement Attending MD Statement: examined this patient, discuss w/resident/PA/PULMONOLOGIST, agreed w/resident/PA/PULMONOLOGIST, discussed with family, reviewed EMR data (avail), discussed with nursing, discussed with case mgmt, reviewed images, amended to note Attending Assessment/Plan: Delirium with hallucinations reported by nurse alongwith Insominia and agitation - worsening. Pysch consulted and do repeat work up to rule out medical causes of delirum. Avoid delirium triggers. Avodi BZDs. Leukocytosis- cxr done shows no infiltrates. afebrile. cbc stable. Now resolved. Anemia of chronic disease also poor intake might contribute. iron pills. ALF with UTI resolved. -Poor PO intake. Pt was recently dced home from [facility]. Dysphagia- on pureed diet and thin liquids. H/O MM on zometa monthly injections as outpatient. gi/dvt prophylaxis
[2018-01-06 08:24] LABS: ABSOLUTE BASOPHIL COUNT 0 /CUMM (0.0-0.2); ABSOLUTE EOSINOPHIL COUNT 0.3 /CUMM (0.0-0.7); ABSOLUTE GRANULOCYTE CT 6.6 /CUMM (1.4-6.5); ABSOLUTE LYMPH COUNT 1.6 /CUMM (1.2-3.4); ABSOLUTE MONOCYTE COUNT 1.3 /CUMM (0.10-0.60); BASOPHIL % 0.5 % (0.0-2.0); EOSINOPHIL % 3.2 % (0-5); GRANULOCYTE % 66.9 % (42.2-75.2); HEMATOCRIT 23.1 % (37-47); MEAN CORPUSCULAR HGB 31.7 PG (27.0-31.0); MEAN CORPUSCULAR HGB CONC 32.8 G/DL (33.0-37.0); MEAN CORPUSCULAR VOLUME 96.6 FL (81.0-99.0); MEAN PLATELET VOLUME 8.3 FL (7.4-10.4); PLATELET COUNT 345 /CUMM (130-400); RBC DISTRIBUTION WIDTH 16.9 % (11.5-14.5); RED BLOOD CELL CT 2.39 /CUMM (4.20-5.40); WHITE BLOOD CELL COUNT 9.8 /CUMM (4.8-10.8)
--- NOTE | 2018-01-06 11:38 | Cons- Psychiatry ---
Psychiatric Consult Date of Consult: 01/06/18 Reason for Consult: Assessment altered mental status History of Present Illness: This 87-year-old female with medical history of smoldering multiple myeloma, asthma, hypertension, hyperlipidemia, sciatica, osteoarthritis and GERD presented to the emergency room with a UTI. She was admitted in November of this year with a similar complaint.44 On this presentation urine grew E. coli sensitive to ampicillin, vancomycin and nitrofurantoin. The patient was treated with ceftriaxone. The medical team reports that she has become increasingly confused and agitated. She has been afebrile apart from last night when her temperature was 100.3 without associated tachycardia. Review of old notes indicates that the patient was able tp participate in her care during her last admission but that cognitive deterioration has been progressive during this admission. The patient has no documented history of dementia. CT brain in 2016 shows mild volume loss and evidence of microvascular disease. Unable to obtain past psychiatric, substance, family or social history. Spoke with patient's daughter who says that patient is not confused at home and that she believes her mother still has UTI. She also states that her mother had a recent CVA and has had some word-finding difficulties. She also reports that her mother has needed encouragement to take her medication for some time. Her reports indicate that her mother may have some underlying cognitive deficits at baseline. Mother and daughter live together and daughter provides care. Per daughter, mother has no psychiatric history and was only put on Lexapro and gabapentin at her request while pt was in rehab. Allergies: Coded Allergies: Penicillins (UNKNOWN 08/29/15) Sulfa (Sulfonamide Antibiotics) (UNKNOWN 08/29/15) Uncoded Allergies: MULTIPLE CHEMICAL SENSITIVITIES (08/29/15) Current Medications: Med Albuterol Sulfate 3 ML INH Q4P PRN 01/04/18 1845 Apixaban 2.5 MG PO BID 12/30/17 2100 Atorvastatin Calcium 10 MG PO 1700 12/31/17 1700 Budesonide/Formoterol Fumarate 2 PUF INH BID 01/04/18 2130 Cyanocobalamin 1,000 MCG PO DAILY 12/30/17 1741 Escitalopram Oxalate 10 MG PO DAILY 12/30/17 1741 Ferrous Sulfate 325 MG PO BID 12/30/17 2100 Fluticasone Propionate 2 SPRAY TRESSA DAILY NEEDED PRN 12/30/17 1745 Guaifenesin/Dextromethorphan 10 ML PO Q4P PRN 01/01/18 1015 Lidocaine 1 PAT EXT DAILY 12/30/17 2130 Multivitamins 1 TAB PO DAILY 12/31/17 0900 Omeprazole 20 MG PO DAILY AC 12/31/17 0700 Polyethylene Glycol 17 GM PO DAILY PRN 12/30/17 1745 Potassium Chloride 20 MEQ PO DAILY 12/30/17 174 Risperidone 0.25 MG PO QPM 01/03/18 2100 Senna/Docusate Sodium 2 TAB PO QPM 12/30/17 2100 Thiamine HCl 100 MG PO DAILY 12/30/17 1743 Past History Past Medical History Neurological: NONE EENT: NONE, hearing loss (one ear) Cardiovascular: hypertension, hyperlipidemia Respiratory: ENVIRONMENTAL ASTHMA 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 Her gown was pulled up exposing her diaper to which she was indifferent. She was picking at the sheets and the side of her bed. She was disoriented. Speech was loud in volume, normal in rate and rhythm content of her speech was perseverative, initially stating "let us go, let us go" and then repetitively, squat?". Attention and concentration were impaired. Impulse control was impaired. Affect was agitated. Insight was absent and judgment impaired. Diffential Diagnosis: 1. Delirium of unknown etiology 2. Rule out underlying dementia 3. Symptoms likely being exacerbated by SSRI discontinuation syndrome due to poor adherence Impression: 87-year-old female with florid delirium of unknown etiology. There is a significant possibility of an underlying dementing process. Provisional Treatment Plan: -Suggest repeat UA, chest x-ray to search for source of infection. The patient has smoldering multiple myeloma which may render her presentation is atypical. No history of recent fall. -We will use low-dose olanzapine 2.5 mg p.o. 3 times a day to help manage agitation. Please check QTC. -Suggest discontinuing ramelteon and melatonin. Thank you for consulting us on this patient. Psychiatry will continue to follow.
--- NOTE | 2018-01-06 11:38 | Incdntl Nt Psy ---
Incidental Note Notation: Addendum to previous note. Suggest discontinuing risperidone.
[2018-01-06 14:10] VITALS: BP 102/60
--- NOTE | 2018-01-06 14:54 | RADIOLOGY REPORT ---
EXAMINATION: XR PORTABLE CHEST CLINICAL INFORMATION: Productive cough. Presumptive diagnosis of pneumonia. COMPARISON: Chest x-ray dated 01/03/2018 and older exams dating back to 01/09/2012. TECHNIQUE: Portable AP semiupright view of the chest was obtained. FINDINGS: The cardiomediastinal silhouette is enlarged. Low lung volumes are seen with linear platelike atelectasis in the right midlung and linear reticular opacities in the left mid and lower lung and in the right lower lung, unchanged from prior exam. Thickening of the central airways is seen. No effusion or pneumothorax is noted. Diffuse osteopenia and S-shaped thoracolumbar scoliosis with multilevel degenerative changes in the spine are again seen. IMPRESSION: 1. Findings are consistent with persistent chronic platelike atelectasis in the right mid lung and probable atelectatic changes versus less likely pneumonia in the left mid and lower lung. Findings are unchanged from the most recent prior exam but new compared to older exams. 2. Underlying COPD. 3. Diffuse osteopenia.
--- NOTE | 2018-01-06 17:18 | ULTRASOUND REPORT ---
EXAMINATION: US RETROPERITONEAL COMPLETE (RENAL) CLINICAL INFORMATION: Recurrent UTI within this admission. Rule out hydronephrosis. Compare with past. COMPARISON: Renal ultrasound dated 12/30/2017 and 12/09/2017. CT scan of the abdomen and pelvis dated 02/02/2014. TECHNIQUE: Real-time imaging of the kidneys and bladder. FINDINGS: Evaluation is extremely limited since the patient was unable to lay flat or hold her breath. RIGHT KIDNEY: 7.7 x 4.5 x 4.5 cm (SAG x AP x TRV). The kidney is normal in size, contour, and echogenicity. Renal cortical thickness is normal. No calculi or focal parenchymal lesions. No hydronephrosis. LEFT KIDNEY: Not seen. BLADDER: Essentially decompressed and therefore poorly assessed. Bilateral ureteral jets are not demonstrated. Prevoid bladder volume is 24 mL. Unable to obtain postvoid images. IMPRESSION: Extremely limited exam. The right kidney is suboptimally visualized, but appears grossly unremarkable. Left kidney is not seen. Bladder is decompressed and not adequately assessed.
[2018-01-06 21:57] VITALS: BP 110/60
[2018-01-07 06:29] VITALS: BP 114/60
--- NOTE | 2018-01-07 07:11 | PN- Housestaff ---
See Addendum Subjective Follow-up For: UTI Delirium Subjective: Patient was seen and examined at bedside. She was fast asleep when I went to see her. The nurse reports she slept well through the night after a lot of days. The patient was pleasant yesterday with her daughter around. She is able to eat ice- cream and is able to take her pills crushed in ice-cream or pudding. Review of Systems Constitutional: Reports: see HPI. Objective Last 24 Hrs of Vital Signs/I&O Vital Signs Date Time Temp Pulse Resp B/P B/P Pulse O2 O2 Flow FiO2 Mean Ox Delivery Rate 01/07 0629 99.1 97 16 114/60 91 Room Air 01/07 0000 Room Air 01/06 2157 99.1 113 20 110/60 95 Room Air 01/06 2129 92 Room Air Room Air 01/06 1410 98.1 100 20 102/60 92 Room Air 01/06 1053 96 Room Air Room Air Intake & Output 01/07 1600 / 0800 01/07 0000 Intake Total 1000 540 Output Total Balance 1000 540 Intake, IV 800 300 Intake, Oral 200 240 Number 1 3 Bowel Movements Physical Exam General Appearance: Alert, Oriented X3, Cooperative Skin: No Rashes Cardiovascular: Regular Rate, Normal S1, Normal S2 Lungs: Clear to Auscultation, Normal Air Movement Abdomen: Normal Bowel Sounds, Soft, No Tenderness Extremities: No Edema, Normal Pulses Vascular: Normal Pulses Assessment/Plan Assessment: 81-year-old female with past medical history of multiple myeloma, asthma, hypertension, hyperlipidemia, sciatica, osteoarthritis, GERD is admitted to [facility] after she was found hypotensive at home. The patient had her creatinine back to normal at 1.4. The patient was afebrile overnight. She was tachycardic to 113 last night. It was 97 in the morning. Problems: 1. UTI 2. ALF 3. Decreased PO intake 4. Anemia 5. Cough Chest X-ray done on January 03 had the following impression 1. Technically limited study. 2. Previously documented right lung base nodule is not reproduced in the current study. 3. Interval development of nonspecific airspace disease at left lung base. Follow-up chest X-ray IMPRESSION: 1. Findings are consistent with persistent chronic platelike atelectasis in the right mid lung and probable atelectatic changes versus less likely pneumonia in the left mid and lower lung. Findings are unchanged from the most recent prior exam but new compared to older exams. 2. Underlying COPD. 3. Diffuse osteopenia. Renal ultrasound was essentially unremarkable 1.UTI with ALF -Patient was afebrile overnight. WBC:8.9 -Urine came back positive for large leukocyte esterase with few bacteria -The patient was re-started on fluids @ 100ml/hr, to a total of 2 bags -Urine glucose was 250 yesterday -Repeat urine and blood cultures sent. Pending report -Creatine is at 1.4 today 2. Anemia -Hgb:6.7 -We will transfuse 1 unit of PRBC and re-check CBC in the AM 3. Decreased PO intake -The patient has been refusing food as well as her pills at this time -I talked to the Pharmacy about the possibility of switching Eliquis to Heparin. Would follow up. 4. Altered mental status -The patient did sleep well last night -She was asleep and non-arousable in the morning today -Psych input appreciated. Risperidone, Ramalteon and Melatonin was discontinued. -Olanzapine 2.5 mg TID was started 5. Cough -Chest X-ray shows no evidence of pneumonia 6. Hypomagnesemia -M.5 yesterday. Came up to 2.2 this morning DVT prophylaxis addressed with Eliquis Code status: Full code Problem List: 1. Altered mental status 2. ALF (acute kidney injury) 3. UTI (urinary tract infection) 4. Weakness 5. Anemia Pain Ratin Pain Location: none Pain Goal: Remain pain free Pain Plan: pathway Tomorrow's Labs & Rationales: cbc and bep
[2018-01-07 07:46] LABS: ABSOLUTE BASOPHIL COUNT 0.1 /CUMM (0.0-0.2); ABSOLUTE EOSINOPHIL COUNT 0.4 /CUMM (0.0-0.7); ABSOLUTE LYMPH COUNT 1.2 /CUMM (1.2-3.4); ABSOLUTE MONOCYTE COUNT 1.1 /CUMM (0.10-0.60); BASOPHIL % 0.7 % (0.0-2.0); GRANULOCYTE % 67.7 % (42.2-75.2); MEAN CORPUSCULAR HGB 31.5 PG (27.0-31.0); MEAN CORPUSCULAR HGB CONC 32.2 G/DL (33.0-37.0); MEAN CORPUSCULAR VOLUME 97.9 FL (81.0-99.0); MEAN PLATELET VOLUME 8.1 FL (7.4-10.4); PLATELET COUNT 348 /CUMM (130-400); RBC DISTRIBUTION WIDTH 16.1 % (11.5-14.5); RED BLOOD CELL CT 2.12 /CUMM (4.20-5.40); WHITE BLOOD CELL COUNT 8.9 /CUMM (4.8-10.8)
--- NOTE | 2018-01-07 07:52 | PN- Student ---
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 Since her admission, she has intermittent altered mental status in setting of UTI. The patient is a poor historian. Her daughter and nurse are primary source of information. Nursing reports good sleep last night and continues to refuse food and medicines. She has no fever, chills, headache, or changes in her urinary/ bowel movements. Her mood and orientation improve when her daughter visits. According to the daughter, Johana made appropriate comments and exchanged jokes yesterday afternoon. Her diet is consisted of chocolate boost, chocolate ice cream, and fruit juice. Residual productive cough noted. No other complaints today. Objective Objective: Vital Signs Date Time Temp Pulse Resp B/P B/P Pulse O2 O2 Flow FiO2 Mean Ox Delivery Rate 01/07 0629 99.1 97 16 114/60 91 Room Air 01/07 0000 Room Air 01/06 2157 99.1 113 20 110/60 95 Room Air 01/06 2129 92 Room Air Room Air 01/06 1410 98.1 100 20 102/60 92 Room Air 01/06 1053 96 Room Air Room Air Current Medications Sig/Manas Start time Last Medication Dose Route Stop Time Status Admin Albuterol Sulfate 3 ML Q4P PRN 01/04 1845 AC INH Apixaban 2.5 MG BID 12/30 2100 AC 01/07 PO 0844 Atorvastatin Calcium 10 MG 1700 / 1700 AC 01/06 PO 1548 Budesonide/ 2 PUF BID 01/04 2130 AC 01/07 Formoterol Fumarate INH 0844 Ceftriaxone Sodium 1,000 MG Q24H 01/06 1530 AC 01/06 IV 01/08 1531 1935 Cyanocobalamin 1,000 MCG DAILY 12/30 1741 AC 01/05 PO 0807 Escitalopram Oxalate 10 MG DAILY 12/30 174 AC 01/07 PO 0844 Ferrous Sulfate 325 MG BID 12/30 2100 AC 01/05 PO 2048 Fluticasone 2 SPRAY DAILY NEEDED PRN 12/30 1745 AC Propionate TRESSA Guaifenesin/ 10 ML Q4P PRN 01/01 1015 AC 01/04 Dextromethorphan PO 1949 Lidocaine 1 PAT DAILY 12/30 2130 AC 01/01 EXT 0927 Magnesium Sulfate 1 GM Q2H 01/06 1515 DC 01/06 Dextrose/Water 100 ML IV 01/06 191 193 Multivitamins 1 TAB DAILY 12/31 899 AC 01/05 PO 0807 Olanzapine 2.5 MG TID 01/06 1400 AC 01/07 PO 0844 Omeprazole 20 MG DAILY AC 12/31 0700 AC 01/06 PO 0559 Polyethylene Glycol 17 GM DAILY PRN 12/30 1745 AC PO Potassium Chloride 20 MEQ DAILY 12/30 1742 AC 01/05 PO 0806 Risperidone 0.25 MG QPM 01/03 2100 DC 01/05 PO 2048 Senna/Docusate Sodium 2 TAB QPM 12/30 2100 AC 01/05 PO 2048 Sodium Chloride 1,000 ML Q10H 01/06 1515 AC 01/07 IV 01/07 1114 0516 Thiamine HCl 100 MG DAILY 12/30 1743 AC 01/05 PO 0807 Current Medications Sig/Manas Start time Last Medication Dose Route Stop Time Status Admin Albuterol Sulfate 3 ML Q4P PRN 01/04 1845 AC INH Apixaban 2.5 MG BID 12/30 2100 AC 01/07 PO 0844 Atorvastatin Calcium 10 MG 1700 12/31 1700 AC 01/06 PO 1548 Budesonide/ 2 PUF BID 01/04 2130 AC 01/07 Formoterol Fumarate INH 0844 Ceftriaxone Sodium 1,000 MG Q24H 01/06 1530 AC 01/06 IV 01/08 1531 1935 Cyanocobalamin 1,000 MCG DAILY 12/30 1741 AC 01/05 PO 0807 Escitalopram Oxalate 10 MG DAILY 12/30 1741 AC 01/07 PO 0844 Ferrous Sulfate 325 MG BID 12/30 2100 AC 01/05 PO 2048 Fluticasone 2 SPRAY DAILY NEEDED PRN 12/30 1745 AC Propionate TRESSA Guaifenesin/ 10 ML Q4P PRN 01/01 1015 AC 01/04 Dextromethorphan PO 1949 Lidocaine 1 PAT DAILY 12/30 2129 AC 01/01 EXT 0927 Magnesium Sulfate 1 GM Q2H 01/06 1515 DC 01/06 Dextrose/Water 100 ML IV 01/06 191 193 Multivitamins 1 TAB DAILY 12/31 899 AC 01/05 PO 0807 Olanzapine 2.5 MG TID 01/06 1400 AC 01/07 PO 0844 Omeprazole 20 MG DAILY AC 12/31 0700 AC 01/06 PO 0559 Polyethylene Glycol 17 GM DAILY PRN 12/30 1745 PO Potassium Chloride 20 MEQ DAILY 12/30 1742 01/05 PO 0806 Risperidone 0.25 MG QPM 01/03 2100 SD 01/05 PO 204 Senna/Docusate Sodium 2 TAB QPM 12/30 2100 AC 01/05 PO 204 Sodium Chloride 1,000 ML Q10H 01/06 1515 AC 01/07 IV 01/07 1114 0516 Thiamine HCl 100 MG DAILY 12/30 174 01/05 PO 0807 Results Results: Laboratory Tests 01/07/18 0622: Sodium Pending, Potassium Pending, Chloride Pending, Carbon Dioxide Pending, Anion Gap Pending, BUN Pending, Creatinine Pending, BUN/Creatinine Ratio Pending , Magnesium Pending, CBC w Diff Pending, WBC Pending, RBC Pending, Hgb Pending, Hct Pending, MCV Pending, MCH Pending, MCHC Pending, RDW Pending, Plt Count Pending, MPV Pending 01/06/18 1156: Urinalysis LIGHT H, Urine Color STRAW, Urine Clarity CLDY H, Urine pH 7.5, Ur Specific Hamlin 1.020, Urine Protein 100 H, Urine Ketones NEG, Urine Nitrite NEG, Urine Bilirubin NEG, Urine Urobilinogen 0.2, Ur Leukocyte Esterase LARGE H , Ur Microscopic SEDIMENT EXAMINED, Urine RBC 1-3, Urine WBC PACKD H, Ur Epithelial Cells FEW, Urine Bacteria FEW H, Urine Hemoglobin SMALL H, Urine Glucose 250 H 01/06/18 0632: Anion Gap 7, Estimated GFR 35 L, BUN/Creatinine Ratio 17.1, Glucose 91, Serum Osmolality 300 H, Magnesium 1.5 L, CBC w Diff NO MAN DIFF REQ, RBC 2.39 L, MCV 96.6, MCH 31.7 H, MCHC 32.8 L, RDW 16.9 H, MPV 8.3, Gran % 66.9, Lymphocytes % 16.4 L, Monocytes % 13.0 H, Eosinophils % 3.2, Basophils % 0.5, Absolute Granulocytes 6.6 H, Absolute Lymphocytes 1.6, Absolute Monocytes 1.3 H, Absolute Eosinophils 0.3, Absolute Basophils 0 01/06/18 0600: Hemoglobin A1c 5.1 01/05/18 0636: Anion Gap 7, Estimated GFR 35 L, BUN/Creatinine Ratio 15.7, CBC w Diff NO MAN DIFF REQ, RBC 2.40 L, MCV 96.0, MCH 31.9 H, MCHC 33.2, RDW 16.8 H, MPV 8.4, Gran % 70.5, Lymphocytes % 17.4 L, Monocytes % 8.2, Eosinophils % 2.7, Basophils % 1.2, Absolute Granulocytes 7.5 H, Absolute Lymphocytes 1.8, Absolute Monocytes 0.9 H, Absolute Eosinophils 0.3, Absolute Basophils 0.1 01/04/18 0815: Anion Gap 7, Estimated GFR 35 L, BUN/Creatinine Ratio 14.3, CBC w Diff NO MAN DIFF REQ, RBC 2.32 L, MCV 96.6, MCH 31.6 H, MCHC 32.8 L, RDW 16.4 H, MPV 8.5 , Gran % 66.8, Lymphocytes % 20.9, Monocytes % 9.3, Eosinophils % 2.4, Basophils % 0.6, Absolute Granulocytes 7.0 H, Absolute Lymphocytes 2.2, Absolute Monocytes 1.0 H, Absolute Eosinophils 0.3, Absolute Basophils 0.1 Microbiology 01/06 1156 URINE ROUT: Urine Culture - RECD 01/06 1147 BLOOD: Blood Culture - RECD 01/06 1140 BLOOD: Blood Culture - RECD 01/04 1014 LOWER RESP: Respiratory Culture - CAN Cancelled: SPECIMEN NOT RECEIVED IN LABORATORY 01/04 1014 LOWER RESP: Gram Stain - CAN Cancelled: SPECIMEN NOT RECEIVED IN LABORATORY PHYSICAL EXAM Last 24hrs of Vital Signs Vital Signs Date Time Temp Pulse Resp B/P B/P Pulse O2 O2 Flow FiO2 Mean Ox Delivery Rate 01/07 0629 99.1 97 16 114/60 91 Room Air 01/07 0000 Room Air 01/06 2157 99.1 113 20 110/60 95 Room Air 01/06 2129 92 Room Air Room Air 01/06 1410 98.1 100 20 102/60 92 Room Air 01/06 1053 96 Room Air Room Air Physical Exam General Appearance Alert, Cooperative, No Acute Distress HEENT Atraumatic, PERRLA Neck Supple, No JVD, No thryomegaly, +2 Carotid Pulse wo Bruit Cardiovascular Regular Rate, Normal S1, Normal S2, No Murmurs, Gallops, Rubs Lungs Clear to Auscultation, Normal Air Movement Abdomen Normal Bowel Sounds, Soft, No Tenderness, No Masses Neurological Normal Gait (NON ELICITED) Extremities No Clubbing, No Cyanosis, Normal Pulses Assessment/Plan Assessment: 81-year-old female with PMH of multiple myeloma, 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 Afebrile. Labs are significant for RBC 2.12. Hgb 6.7. Hct 20.8. The decreased in hgb is suspected to be secondary to her MM. Chest X-ray negative for pneumonia. Limited renal ultrasound is unremarkable. Stable vitals otherwise. She is stable on Ceftriaxone 1000mg IV q24 hours and Olanzapine 2.5 mg. Laboratory Tests 01/07 01/06 0622 1156 Chemistry Sodium (137 - 145 mmol/L) 139 Potassium (3.5 - 5.1 mmol/L) 3.9 Chloride (98 - 107 mmol/L) 105 Carbon Dioxide (22 - 30 mmol/L) 28 Anion Gap (5 - 16) 6 BUN (7 - 17 mg/dL) 20 H Creatinine (0.5 - 1.0 mg/dL) 1.4 H Estimated GFR (>60 ml/min) 35 L BUN/Creatinine Ratio (7 - 25 %) 14.3 Magnesium (1.6 - 2.3 mg/dL) 2.2 Hematology CBC w Diff NO MAN DIFF REQ WBC (4.8 - 10.8 /CUMM) 8.9 RBC (4.20 - 5.40 /CUMM) 2.12 L Hgb (12.0 - 16.0 G/DL) 6.7 *L Hct (37 - 47 %) 20.8 L MCV (81.0 - 99.0 FL) 97.9 MCH (27.0 - 31.0 PG) 31.5 H MCHC (33.0 - 37.0 G/DL) 32.2 L RDW (11.5 - 14.5 %) 16.1 H Plt Count (130 - 400 /CUMM) 348 MPV (7.4 - 10.4 FL) 8.1 Gran % (42.2 - 75.2 %) 67.7 Lymphocytes % (20.5 - 51.1 %) 14.0 L Monocytes % (1.7 - 9.3 %) 12.6 H Eosinophils % (0 - 5 %) 5.0 Basophils % (0.0 - 2.0 %) 0.7 Absolute Granulocytes (1.4 - 6.5 /CUMM) 6.0 Absolute Lymphocytes (1.2 - 3.4 /CUMM) 1.2 Absolute Monocytes (0.10 - 0.60 /CUMM) 1.1 H Absolute Eosinophils (0.0 - 0.7 /CUMM) 0.4 Absolute Basophils (0.0 - 0.2 /CUMM) 0.1 Urines Urinalysis LIGHT H Urine Color (YEL,AMB,STR) STRAW Urine Clarity (CLEAR) CLDY H Urine pH (5.0 - 8.0) 7.5 Ur Specific Hamlin (1.001 - 1.035) 1.020 Urine Protein (NEG,<30 MG/DL) 100 H Urine Ketones (NEG) NEG Urine Nitrite (NEG) NEG Urine Bilirubin (NEG) NEG Urine Urobilinogen (0.1 - 1.0 EU/dl) 0.2 Ur Leukocyte Esterase (NEG) LARGE H Ur Microscopic SEDIMENT EXAMINED Urine RBC (0 - 5 /HPF) 1-3 Urine WBC (0 - 2 /HPF) PACKD H Ur Epithelial Cells (NONE,FEW) FEW Urine Bacteria (NEG/NONE) FEW H Urine Hemoglobin (NEG) SMALL H Urine Glucose (N MG/DL) 250 H Plan: - Transfuse 1L of whole blood - Recheck CBC tomorrow morning - Recommend incentive spirometry to improve lung functions - Continue monitoring for any changes in mental status
[2018-01-07 07:54] LABS: HEMATOCRIT 20.8 % (37-47)
[2018-01-07 14:13] VITALS: BP 110/58
--- NOTE | 2018-01-07 14:52 | PN- Psychiatry ---
Assessment/Plan Impression: Pt less agitated today. Hgb 6.7 - for transfusion today Urine - positive for large leucocyte esterase with few bacteria. Culture pending. BUN 24 - fluids started CXR - noncontributory Pt reportedly non arousable this morning. Suggestion: Reduce olanzapine to 2.5mg po bid Subjective Subjective: Pt sleeping
[2018-01-07 22:20] VITALS: BP 122/70
[2018-01-08 06:23] VITALS: BP 134/68
--- NOTE | 2018-01-08 07:49 | PN- Housestaff ---
Jo Lennon 01/08/18 0748: Subjective Follow-up For: UTI Altered mental status Subjective: Patient was seen and examined at bedside. There is no change in her mental status overnight. Poot PO intake. Daughter sensitized about the possibility of using a PEG tube. She says she would consider doing that if patient is not able to tolerate oral diet. She insists on bringing her favourite food from home. The patient refused speech and swallow evaluation. They recommended switching her back to regular diet. Review of Systems Constitutional: Reports: see HPI. Objective Last 24 Hrs of Vital Signs/I&O Vital Signs Date Time Temp Pulse Resp B/P B/P Pulse O2 O2 Flow FiO2 Mean Ox Delivery Rate 01/08 0623 98.4 83 20 134/68 94 Room Air 01/07 2220 99.4 82 22 122/70 94 Intake & Output 01/08 1600 01/08 0800 01/08 0000 Intake Total 150 100 100 Output Total Balance 150 100 100 Intake, Oral 150 100 100 Number 1 2 Bowel Movements Patient 158 lb Weight Physical Exam General Appearance: confused Skin: multiple bruies, present on admission Neck: Supple Cardiovascular: Regular Rate, Normal S1, Normal S2, No Murmurs Assessment/Plan Assessment: 81-year-old female with past medical history of multiple myeloma, asthma, hypertension, hyperlipidemia, sciatica, osteoarthritis, GERD is admitted to [facility] after she was found hypotensive at home. The patient had her creatinine back to normal at 1.4. The patient was afebrile overnight. The patient continues to be confused. However, her insomnia is resolved afte Problems: 1. UTI 2. ALF 3. Decreased PO intake 4. Anemia 5. Cough Chest X-ray done on January 03 had the following impression 1. Technically limited study. 2. Previously documented right lung base nodule is not reproduced in the current study. 3. Interval development of nonspecific airspace disease at left lung base. Follow-up chest X-ray IMPRESSION: 1. Findings are consistent with persistent chronic platelike atelectasis in the right mid lung and probable atelectatic changes versus less likely pneumonia in the left mid and lower lung. Findings are unchanged from the most recent prior exam but new compared to older exams. 2. Underlying COPD. 3. Diffuse osteopenia. Renal ultrasound was essentially unremarkable 1.UTI with ALF -Patient was afebrile overnight. WBC:12.3 -Urine came back positive for large leukocyte esterase with few bacteria, cultures contaminated -The patient was re-started on fluids @ 100ml/hr, to a total of 2 bags -Blood culture sterile -Creatine is at 1.4 today 2. Anemia -Hgb:8.7 following transfusing 1 unit of PRBC 3. Decreased PO intake -The patient is still refusing food -Speech and swallo evlauation done and switching the patient to a regular diet was suggested -Prealbumin:11.2, Nutrition consult placed. Will follow recommendations 4. Altered mental status -The patient did sleep well last night -She was asleep and non-arousable in the morning today -Psych input appreciated. Risperidone, Ramalteon and Melatonin was discontinued. -Olanzapine 2.5 mg BID 5. Cough -Chest X-ray shows no evidence of pneumonia 6. Hypomagnesemia -M.5 yesterday. Came up to 2.2. DVT prophylaxis addressed with Eliquis Code status: Full code Problem List: 1. Anemia 2. Altered mental status 3. Hypotension 4. ALF (acute kidney injury) 5. UTI (urinary tract infection) Pain Ratin Pain Location: none Pain Goal: Remain pain free Pain Plan: pathways Tomorrow's Labs & Rationales: cbc and bep Ramu Godinez 01/08/18 1029: Attending MD Review Statement Attending Statement Attending MD Statement: examined this patient, discuss w/resident/PA/WICKER MOLDED CANDLES, agreed w/resident/PA/WICKER MOLDED CANDLES, discussed with family, reviewed EMR data (avail), discussed with nursing, discussed with case mgmt, reviewed images, amended to note Attending Assessment/Plan: Patient sleeping comfortably in bed. Daughter bedside. Delirium with improvement. Repeat work up to rule out medical causes of delirum is negative. Avoid delirium triggers. Avoid BZDs. Pysch consulted and titrated olanzapine 2.5 mg bid. Leukocytosis- cxr done shows no infiltrates. afebrile. cbc stable. Monitor wbc Anemia of chronic disease improving with transfusion of 1 prbc tolerated well. ALF with UTI resolved. -Poor PO intake. Dysphagia- Obtain repeat speech/swallow now as she might be more cooperative. H/O MM on zometa monthly injections as outpatient. Severe protein calorie malnutrition: prealbumin 11. Consult dietitian. ( discussed nutritional support with daughter and possible PEG tube vs encouragement of PO intake) gi/dvt prophylaxis Pt was recently dced home from [facility].
[2018-01-08 08:21] LABS: ABSOLUTE BASOPHIL COUNT 0.2 /CUMM (0.0-0.2); ABSOLUTE EOSINOPHIL COUNT 0.3 /CUMM (0.0-0.7); ABSOLUTE GRANULOCYTE CT 9.3 /CUMM (1.4-6.5); ABSOLUTE LYMPH COUNT 1.2 /CUMM (1.2-3.4); ABSOLUTE MONOCYTE COUNT 1.2 /CUMM (0.10-0.60); BASOPHIL % 1.7 % (0.0-2.0); EOSINOPHIL % 2.8 % (0-5); GRANULOCYTE % 75.6 % (42.2-75.2); MEAN CORPUSCULAR HGB 31.2 PG (27.0-31.0); MEAN CORPUSCULAR HGB CONC 32.8 G/DL (33.0-37.0); MEAN CORPUSCULAR VOLUME 95.3 FL (81.0-99.0); RBC DISTRIBUTION WIDTH 17.5 % (11.5-14.5); WHITE BLOOD CELL COUNT 12.3 /CUMM (4.8-10.8)
[2018-01-08 08:23] LABS: HEMATOCRIT 26.7 % (37-47)
[2018-01-08 08:35] LABS: PLATELET COUNT 384 /CUMM (130-400)
[2018-01-08] MEDS ORDERED: OLANZAPINE2.5 M1 PO (14:18)
[2018-01-08 14:58] VITALS: BP 110/58
[2018-01-08 22:35] VITALS: BP 110/72
[2018-01-09 06:24] VITALS: BP 128/70
--- NOTE | 2018-01-09 07:18 | PN- Housestaff ---
Jo Lennon 01/09/18 0717: Subjective Follow-up For: UTI Confusion Subjective: Patient was seen and examined by the bedside. She was alert but very confused. She appeared to be having vivid visual hallucinations. He conversation consisted to completely unrelated topics. She thought she was brought to a different state because she fell sick yesterday and wanted family to be informed. The nurse reported that she did not sleep well last night. Review of Systems Constitutional: Reports: see HPI. Objective Last 24 Hrs of Vital Signs/I&O Vital Signs Date Time Temp Pulse Resp B/P B/P Pulse O2 O2 Flow FiO2 Mean Ox Delivery Rate 01/09 0624 98.4 90 20 128/70 95 Room Air 01/08 2235 98.2 88 20 110/72 96 Room Air 01/08 1458 99.7 86 20 110/58 95 Intake & Output 01/09 1600 01/09 0800 01/09 0000 Intake Total 120 200 Output Total Balance 120 200 Intake, Oral 120 200 Number 2 2 Bowel Movements Physical Exam General Appearance: Alert, Oriented X3, Cooperative, No Acute Distress Neck: Supple Cardiovascular: Regular Rate, Normal S1, Normal S2, No Murmurs Lungs: diminished breath sounds Abdomen: Normal Bowel Sounds, Soft, No Tenderness Extremities: No Edema, Normal Pulses Assessment/Plan Assessment: 81-year-old female with past medical history of multiple myeloma, asthma, hypertension, hyperlipidemia, sciatica, osteoarthritis, GERD is admitted to [facility] after she was found hypotensive at home. The patient has been maintaining her creatinine to 1.5. The patient was afebrile overnight. The patient continues to be confused. However, her insomnia is resolved afte Problems: 1. UTI 2. ALF 3. Decreased PO intake 4. Anemia 5. Cough Chest X-ray done on January 03 had the following impression 1. Technically limited study. 2. Previously documented right lung base nodule is not reproduced in the current study. 3. Interval development of nonspecific airspace disease at left lung base. Follow-up chest X-ray IMPRESSION: 1. Findings are consistent with persistent chronic platelike atelectasis in the right mid lung and probable atelectatic changes versus less likely pneumonia in the left mid and lower lung. Findings are unchanged from the most recent prior exam but new compared to older exams. 2. Underlying COPD. 3. Diffuse osteopenia. Renal ultrasound was essentially unremarkable 1.UTI with ALF -Patient was afebrile overnight. WBC:9.5 -Urine came back positive for large leukocyte esterase with few bacteria, cultures contaminated -Fluids discontinued -Blood culture sterile -Creatine is at 1.5 today 2. Anemia -Hgb:7.8 following transfusing 1 unit of PRBC 3. Decreased PO intake -The patient is drinking Ensure but has a limited solid food intake -Speech and swallo evlauation done and switching the patient to a regular diet was suggested -Prealbumin:11.2, Nutrition consult placed. Recommended calorie count for 48 hours followed by decision to place PEG tube 4. Altered mental status -The patient did not sleep well last night -She was alert but not oriented and appeared to be having vivid visual hallucinations. -Psych input appreciated. Risperidone, Ramalteon and Melatonin was discontinued. -Olanzapine 2.5 mg BID 5. Cough -Cough settled at this time -Chest X-ray shows no evidence of pneumonia 6. Hypomagnesemia -M.5 yesterday. Came up to 2.2. The patient is supossed to be discharged to [facility] today which currently seems unlikely given her mental status. Would consult Psych for recommendations. DVT prophylaxis addressed with Eliquis Code status: Full code Problem List: 1. Anemia 2. Altered mental status 3. Hypotension 4. ALF (acute kidney injury) 5. UTI (urinary tract infection) Pain Ratin Pain Location: none Pain Goal: Remain pain free Pain Plan: none Tomorrow's Labs & Rationales: none GretchenRamu hoang 01/09/18 1035: Attending MD Review Statement Attending Statement Attending MD Statement: examined this patient, discuss w/resident/PA/REFERRAL AGENT, agreed w/resident/PA/REFERRAL AGENT, discussed with family, reviewed EMR data (avail), discussed with nursing, discussed with case mgmt, reviewed images, amended to note Attending Assessment/Plan: Patient confused. Daughter bedside. Delirium: Repeat work up to rule out medical causes of delirum is negative. Avoid delirium triggers. Avoid BZDs. Pysch consulted and titrated olanzapine 2.5 mg bid. Follow up pysch recommendations. Leukocytosis resolved- cxr done shows no infiltrates. afebrile. cbc stable. Anemia of chronic disease improving with transfusion of 1 prbc tolerated well. ALF with UTI resolved. -Poor PO intake. Dysphagia- speech/swallow consulted, follow recs. H/O MM on zometa monthly injections as outpatient. Severe protein calorie malnutrition: prealbumin 11. Consulted dietitian. ( discussed nutritional support with daughter and possible PEG tube vs encouragement of PO intake). She agrees to oral nutrition for now. gi/dvt prophylaxis. Pt was recently dced home from [facility].
[2018-01-09 08:19] LABS: ABSOLUTE BASOPHIL COUNT 0.1 /CUMM (0.0-0.2); ABSOLUTE EOSINOPHIL COUNT 0.6 /CUMM (0.0-0.7); ABSOLUTE GRANULOCYTE CT 6.4 /CUMM (1.4-6.5); ABSOLUTE LYMPH COUNT 1.4 /CUMM (1.2-3.4); BASOPHIL % 0.6 % (0.0-2.0); EOSINOPHIL % 5.9 % (0-5); GRANULOCYTE % 67.5 % (42.2-75.2); HEMATOCRIT 23.5 % (37-47); MEAN CORPUSCULAR HGB 31.5 PG (27.0-31.0); MEAN CORPUSCULAR HGB CONC 33.2 G/DL (33.0-37.0); MEAN CORPUSCULAR VOLUME 95.2 FL (81.0-99.0); MEAN PLATELET VOLUME 8.1 FL (7.4-10.4); PLATELET COUNT 337 /CUMM (130-400); RBC DISTRIBUTION WIDTH 17.5 % (11.5-14.5); RED BLOOD CELL CT 2.48 /CUMM (4.20-5.40); WHITE BLOOD CELL COUNT 9.5 /CUMM (4.8-10.8)
[2018-01-09 14:47] VITALS: BP 100/58
--- NOTE | 2018-01-09 17:28 | PN- Psychiatry ---
See Addendum Assessment/Plan Impression: Assessment/Plan Impression: 87 y/o pt of Dr. Godinez who presented with UTI which was treated with abx with good effect. I was consulted to update team on mental status as Dr. Muñoz diagnosed the pt with delirium and the pt is otherwise ready to d/c. Spoke with pt this morning (as well as daughter who apparently needed some psychoeducation regarding her mother's condition as she was disruptive during business intern's exam.) Pt is still delirious on exam. I explained to the daughter the temporary nature of delirium, its acute onset and its various etioligies, in this case most obvious cause is UTI. On exam pt is oriented to self and where she grew up which is where she thinks she is now. She does not know we are in a hospital, does not know who her daughter is. Team gives varying reports of her presentation. Daughter states pt has VH. Speech is encephalopathic, consciousness waxing and waning. Thoughts are disorganized. She cannot give any coherent history. I reoriented her several times but she was unable to retain the information. She did not indicate paranoia anyone was trying to hurt her and did not indicate pain. Insight and judgment are absent/poor. IMP Floridly delirious. Continue medications started by Dr. Muñoz If QTc is wnl she can use 12.5-25 mg trazodone if she is not sleeping, but would avoid unless she needs it. Reversible causes of delirium given poor nutritional status, mainly B12, folic, D, thiamine. Would test TSH, LFTs. She is coughing ensure she does not have a pulmonary process is she is not clearing. Psych to reassess before d/c to ensure she has cleared. Her daughter states she has normal cognitive decline but her baseline is quite coherent. [id number] #[id number] Suggestion: See. IMP Subjective Subjective: See imp Objective Last 24 Hrs of Vital Signs/I&O Vital Signs Date Time Temp Pulse Resp B/P B/P Pulse O2 O2 Flow FiO2 Mean Ox Delivery Rate 01/09 1447 98.2 93 18 100/58 97 01/09 0624 98.4 90 20 128/70 95 Room Air 01/08 2235 98.2 88 20 110/72 96 Room Air Intake & Output 01/09 1600 01/09 0800 01/09 0000 Intake Total 900 120 200 Output Total Balance 900 120 200 Intake, Oral 900 120 200 Number 2 2 2 Bowel Movements Suggestion: Reassess Subjective Subjective: see imp Objective Last 24 Hrs of Vital Signs/I&O Vital Signs Date Time Temp Pulse Resp B/P B/P Pulse O2 O2 Flow FiO2 Mean Ox Delivery Rate 01/09 1447 98.2 93 18 100/58 97 01/09 0624 98.4 90 20 128/70 95 Room Air 01/08 2235 98.2 88 20 110/72 96 Room Air Intake & Output 01/09 1600 01/09 0800 01/09 0000 Intake Total 900 120 200 Output Total Balance 900 120 200 Intake, Oral 900 120 200 Number 2 2 2 Bowel Movements
[2018-01-09 22:08] VITALS: BP 100/60
[2018-01-10 06:04] VITALS: BP 100/64
--- NOTE | 2018-01-10 12:43 | PN- Att Addend ---
Attending Addendum Attending Brief Note Patient more alert than before. Daughter bedside. Alert, Oriented, Cooperative, No Acute Distress Regular Rate, Normal S1, Normal S2, No Murmurs Normal Bowel Sounds, Soft, No Tenderness No Edema, Normal Pulses. Delirium: Avoid delirium triggers. Avoid BZDs. Pysch consulted and titrated olanzapine 2.5 mg bid. Follow up pysch recommendations. TSH wnl, vit b12 wnl. Leukocytosis resolved- cxr done shows no infiltrates. afebrile. cbc stable. Anemia of chronic disease improving with transfusion of 1 prbc tolerated well. ALF with UTI resolved. -Poor PO intake. Dysphagia- speech/swallow consulted, follow recs. H/O MM on zometa monthly injections as outpatient. Severe protein calorie malnutrition: prealbumin 11. Consulted dietitian. ( discussed nutritional support with daughter and possible PEG tube vs encouragement of PO intake). Encouraging oral intake which daughter agrees. gi/dvt prophylaxis. Pt was recently dced home from [facility]. Admission Lab Results I reviewed the following labs: Laboratory Tests 01/09 Chemistry Total Bilirubin (0.2 - 1.3 mg/dL) 0.3 Direct Bilirubin (< 0.4 mg/dL) 0.3 AST (14 - 36 U/L) 23 ALT (9 - 52 U/L) 25 Alkaline Phosphatase (<127 U/L) 63 Total Protein (6.3 - 8.2 g/dL) 5.8 L Albumin (3.5 - 5.0 g/dL) 2.8 L Whole Bld Vitamin B1 Pending Admission Meds I reviewed the following Meds: Current Medications Sig/Manas Start time Last Medication Dose Stop Time Status Admin Albuterol Sulfate 3 ML Q4P PRN 01/04 1845 AC 01/07 (Proventil) 1127 Apixaban 2.5 MG BID 12/30 2099 AC 01/10 (Eliquis) 1030 Atorvastatin Calcium 10 MG AT BEDTIME 01/08 2100 AC 01/09 (Lipitor) 2028 Budesonide/ 2 PUF BID 01/04 213 AC 01/10 Formoterol Fumarate 1009 (SYMBICORT) Cyanocobalamin 1,000 MCG DAILY 12/30 174 AC 01/10 (Vitamin B12) 1031 Escitalopram Oxalate 10 MG DAILY 12/30 174 AC 01/10 (Lexapro) 1030 Ferrous Sulfate 325 MG BID 12/30 2099 AC 01/10 (Feosol) 1030 Fluticasone 2 SPRAY DAILY NEEDED PRN 12/30 174 AC Propionate (Flonase) Guaifenesin/ 10 ML Q4P PRN 01/01 1015 AC 01/04 Dextromethorphan 194 (Robitussin Dm) Lidocaine 1 PAT DAILY 12/30 2129 AC 01/09 (Lidoderm) 1019 Multivitamins 1 TAB DAILY 12/31 09 AC 01/10 (Theragran Vitamins) 1030 Olanzapine 2.5 MG BID 01/07 2100 AC 01/10 (Zyprexa 2.5MG) 1030 Omeprazole 20 MG DAILY AC 12/31 07 AC 01/06 (Prilosec) 0559 Polyethylene Glycol 17 GM DAILY PRN 12/30 174 AC (Miralax) Senna/Docusate Sodium 2 TAB QPM 12/30 2099 AC 01/05 (Senokot S) 2048 Thiamine HCl 100 MG DAILY 12/30 174 AC 01/10 (Vitamin B1) 1031
[2018-01-10 14:56] VITALS: BP 118/68
--- NOTE | 2018-01-10 16:27 | PN- Housestaff ---
Subjective Follow-up For: UTI Confusion Subjective: patient was seen and examined today. patient is very tired and did not sound alert. she asked for food and went back to sleep. She is a poor historian and proper history could not be obtained. Review of Systems Constitutional: Reports: see HPI. Objective Last 24 Hrs of Vital Signs/I&O Vital Signs Date Time Temp Pulse Resp B/P B/P Pulse O2 O2 Flow FiO2 Mean Ox Delivery Rate 01/10 1456 98.4 89 18 118/68 93 Room Air 01/10 0604 98.4 90 20 100/64 94 Room Air 01/09 2208 98.9 92 20 100/60 96 Intake & Output 01/10 1600 01/10 0800 01/10 0000 Intake Total 460 240 360 Output Total Balance 460 240 360 Intake, Oral 460 240 360 Number 0 2 4 Bowel Movements Output, Urine Physical Exam General Appearance: Alert, Oriented X3, Cooperative, No Acute Distress Cardiovascular: Regular Rate, No Murmurs Lungs: Clear to Auscultation, Normal Air Movement Abdomen: Normal Bowel Sounds, Soft, No Tenderness, No Hepatospenomegaly, No Masses Neurological: Normal Speech, Strength at 5/5 X4 Ext, Normal Tone, Sensation Intact Extremities: No Clubbing, No Cyanosis, No Edema, Normal Pulses, No Tenderness/ Swelling Current Medications: Current Medications Sig/Manas Start time Last Medication Dose Route Stop Time Status Admin Albuterol Sulfate 3 ML Q4P PRN 01/04 1845 AC 01/07 INH 1127 Apixaban 2.5 MG BID 12/30 2100 AC 01/10 PO 2030 Atorvastatin Calcium 10 MG AT BEDTIME 01/08 2100 AC 01/10 PO 2030 Budesonide/ 2 PUF BID 01/04 2130 AC 01/10 Formoterol Fumarate INH 203 Cyanocobalamin 1,000 MCG DAILY 12/30 1741 AC 01/10 PO 1031 Escitalopram Oxalate 10 MG DAILY 12/30 1741 AC 01/10 PO 1030 Ferrous Sulfate 325 MG BID 12/30 2100 AC 01/10 PO 2030 Fluticasone 2 SPRAY DAILY NEEDED PRN 12/30 1745 AC Propionate TRESSA Guaifenesin/ 10 ML Q4P PRN 01/01 1015 AC 01/04 Dextromethorphan PO 1949 Lidocaine 1 PAT DAILY 12/30 2129 AC 01/09 EXT 1019 Multivitamins 1 TAB DAILY 12/31 0900 AC 01/10 PO 1030 Olanzapine 2.5 MG BID 01/07 2100 AC 01/10 PO 2030 Omeprazole 20 MG DAILY AC 12/31 0700 AC 01/06 PO 0559 Polyethylene Glycol 17 GM DAILY PRN 12/30 1745 AC PO Senna/Docusate Sodium 2 TAB QPM 12/30 2100 AC 01/05 PO 2048 Thiamine HCl 100 MG DAILY 12/30 1743 AC 01/10 PO 1031 Assessment/Plan Assessment: 81-year-old female with past medical history of multiple myeloma, asthma, hypertension, hyperlipidemia, sciatica, osteoarthritis, GERD is admitted to [facility] after she was found hypotensive at home. The patient has been maintaining her creatinine to 1.5. The patient was afebrile overnight. The patient continues to be confused. However, her insomnia is resolved afte Problems: 1. UTI 2. ALF 3. Decreased PO intake 4. Anemia 5. Cough Chest X-ray done on January 03 had the following impression 1. Technically limited study. 2. Previously documented right lung base nodule is not reproduced in the current study. 3. Interval development of nonspecific airspace disease at left lung base. Follow-up chest X-ray IMPRESSION: 1. Findings are consistent with persistent chronic platelike atelectasis in the right mid lung and probable atelectatic changes versus less likely pneumonia in the left mid and lower lung. Findings are unchanged from the most recent prior exam but new compared to older exams. 2. Underlying COPD. 3. Diffuse osteopenia. Renal ultrasound was essentially unremarkable 1.UTI with ALF-resolved Patient has poor oral intake -Urine came back positive for large leukocyte esterase with few bacteria, cultures contaminated -Fluids discontinued -Blood culture neg 2. Anemia -Hgb:7.8 following transfusing 1 unit of PRBC 3. Decreased PO intake -The patient is drinking Ensure but has a limited solid food intake -Speech and swallo evlauation done and switching the patient to a regular diet was suggested -Prealbumin:11.2, Nutrition consult placed. Recommended calorie count for 48 hours followed by decision to place PEG tube 4. Altered mental status -The patient did not sleep well last night. avoid delirium causing medications -Psych input appreciated. -Olanzapine 2.5 mg BID 5. Cough -Cough settled at this time -Chest X-ray shows no evidence of pneumonia 6. Hypomagnesemia-resolved 7.Severe protein calorie malnutrition: prealbumin 11. Consulted dietitian. ( discussed nutritional support with daughter and possible PEG tube vs encouragement of PO intake). daughter agrees with increase in oral intake. DVT prophylaxis addressed with Eliquis Code status: Full code Problem List: 1. Anemia 2. Altered mental status 3. ALF (acute kidney injury) 4. UTI (urinary tract infection) 5. Protein-energy malnutrition Pain Ratin Pain Location: none Pain Goal: Remain pain free Pain Plan: none Tomorrow's Labs & Rationales: none
[2018-01-10 21:23] VITALS: BP 110/70
[2018-01-11 06:20] VITALS: BP 118/70
--- NOTE | 2018-01-11 08:36 | PN- Housestaff ---
See Addendum Subjective Follow-up For: UTI Confusion Subjective: Patient was seen and examined at bedside. She is alert. She can tell her name and date of . She is oriented to person and is cheerful. Her oral intake has improved. She slept well last night. Review of Systems Constitutional: Reports: see HPI. Objective Last 24 Hrs of Vital Signs/I&O Vital Signs Date Time Temp Pulse Resp B/P B/P Pulse O2 O2 Flow FiO2 Mean Ox Delivery Rate 01/11 0620 98.4 89 18 118/70 94 Room Air 01/11 0000 95 Room Air 01/10 2123 98.8 97 18 110/70 95 01/10 1456 98.4 89 18 118/68 93 Room Air Intake & Output 01/11 1600 01/11 0800 01/11 0000 Intake Total 30 720 Output Total 1 Balance 30 719 Intake, IV 0 Intake, Oral 30 720 Number 1 2 Bowel Movements Output, Stool 1 Physical Exam General Appearance: Alert, Oriented X3, Cooperative, No Acute Distress Neck: Supple Cardiovascular: Regular Rate, Normal S1, Normal S2, No Murmurs Lungs: Clear to Auscultation Abdomen: Normal Bowel Sounds, Soft, No Tenderness Extremities: No Edema, Normal Pulses Vascular: Normal Pulses Assessment/Plan Assessment: Assessment: 81-year-old female with past medical history of multiple myeloma, asthma, hypertension, hyperlipidemia, sciatica, osteoarthritis, GERD is admitted to [facility] after she was found hypotensive at home. The patient has been maintaining her creatinine to 1.4. The patient was afebrile overnight. The patient is alert and oriented at this time. Her PO intake has improved. Work up for reversible causes of dementia has been negative do far. Problems: 1. UTI 2. ALF 3. Decreased PO intake 4. Anemia 5. Cough Chest X-ray done on January 03 had the following impression 1. Technically limited study. 2. Previously documented right lung base nodule is not reproduced in the current study. 3. Interval development of nonspecific airspace disease at left lung base. Follow-up chest X-ray IMPRESSION: 1. Findings are consistent with persistent chronic platelike atelectasis in the right mid lung and probable atelectatic changes versus less likely pneumonia in the left mid and lower lung. Findings are unchanged from the most recent prior exam but new compared to older exams. 2. Underlying COPD. 3. Diffuse osteopenia. Renal ultrasound was essentially unremarkable 1.UTI with ALF-resolved - PO intake is improved -Urine cultures were contminated. Patient is asymptomatic at this time -Fluids discontinued -Blood culture neg 2. Anemia -Hgb:8.5, following transfusing 1 unit of PRBC 3. Decreased PO intake -The patient is drinking Ensure with improved PO intake -Speech and swallo evlauation done and switching the patient to a regular diet was suggested -Prealbumin:11.2, Nutrition consult placed. Recommended calorie count for 48 hours followed by decision to place PEG tube 4. Altered mental status -The patient is alert and oriented. She slept well last night. -Psych input appreciated. -Olanzapine 2.5 mg BID 5. Cough -Cough settled at this time -Chest X-ray shows no evidence of pneumonia 6. Hypomagnesemia-resolved 7.Severe protein calorie malnutrition: prealbumin 11. Consulted dietitian. ( discussed nutritional support with daughter and possible PEG tube vs encouragement of PO intake). daughter agrees with increase in oral intake. DVT prophylaxis addressed with Eliquis Code status: Full code Problem List: 1. Protein-energy malnutrition 2. Anemia 3. Altered mental status 4. Hypotension 5. ALF (acute kidney injury) 6. UTI (urinary tract infection) 7. Weakness Pain Ratin Pain Location: none Pain Goal: Remain pain free Pain Plan: none Tomorrow's Labs & Rationales: cbc and bep
[2018-01-11 10:33] LABS: ABSOLUTE BASOPHIL COUNT 0.1 /CUMM (0.0-0.2); ABSOLUTE EOSINOPHIL COUNT 0.5 /CUMM (0.0-0.7); ABSOLUTE GRANULOCYTE CT 7.4 /CUMM (1.4-6.5); ABSOLUTE LYMPH COUNT 1.8 /CUMM (1.2-3.4); BASOPHIL % 0.5 % (0.0-2.0); GRANULOCYTE % 69.1 % (42.2-75.2); HEMATOCRIT 26.2 % (37-47); MEAN CORPUSCULAR HGB 31.4 PG (27.0-31.0); MEAN CORPUSCULAR HGB CONC 32.4 G/DL (33.0-37.0); MEAN CORPUSCULAR VOLUME 96.9 FL (81.0-99.0); MEAN PLATELET VOLUME 7.9 FL (7.4-10.4); PLATELET COUNT 417 /CUMM (130-400); RBC DISTRIBUTION WIDTH 17.1 % (11.5-14.5); WHITE BLOOD CELL COUNT 10.7 /CUMM (4.8-10.8)
[2018-01-11 14:00] VITALS: BP 110/80
[2018-01-11 22:15] VITALS: BP 114/78
[2018-01-12 06:27] VITALS: BP 124/60
--- NOTE | 2018-01-12 07:27 | PN- Housestaff ---
Jo Lennon 01/12/18 0727: Subjective Follow-up For: UTI Altered mental status Subjective: Patient was seen adn examiend at bedside. She is alert but still confused. The patient is better in the presence of her daughter. Her PO intake has improved a lot over the past 2 days. The patient is due to be discharged to [facility] today pending Psychiatric clearance. Review of Systems Constitutional: Reports: see HPI. Objective Last 24 Hrs of Vital Signs/I&O Vital Signs Date Time Temp Pulse Resp B/P B/P Pulse O2 O2 Flow FiO2 Mean Ox Delivery Rate 01/12 1351 98.5 90 20 124/60 01/12 0627 98.5 90 20 124/60 95 Room Air 01/11 2215 98.3 88 16 114/78 96 01/11 1600 93 Room Air Intake & Output 01/12 1600 01/12 0800 01/12 0000 Intake Total 130 130 Output Total Balance 130 130 Intake, IV 10 10 Intake, Oral 120 120 Number 2 2 Bowel Movements Physical Exam General Appearance: Alert Neck: Supple Cardiovascular: Regular Rate, Normal S1, Normal S2, No Murmurs Lungs: Clear to Auscultation, Normal Air Movement Abdomen: Normal Bowel Sounds, Soft, No Tenderness Extremities: No Edema, Normal Pulses Assessment/Plan Assessment: 81-year-old female with past medical history of multiple myeloma, asthma, hypertension, hyperlipidemia, sciatica, osteoarthritis, GERD is admitted to [facility] after she was found hypotensive at home. The patient has been maintaining her creatinine to 1.4. The patient was afebrile overnight. The patient is alert and oriented at this time. Her PO intake has improved. Work up for reversible causes of dementia has been negative do far. Problems: 1. UTI 2. ALF 3. Decreased PO intake 4. Anemia 5. Cough Chest X-ray done on January 03 had the following impression 1. Technically limited study. 2. Previously documented right lung base nodule is not reproduced in the current study. 3. Interval development of nonspecific airspace disease at left lung base. Follow-up chest X-ray IMPRESSION: 1. Findings are consistent with persistent chronic platelike atelectasis in the right mid lung and probable atelectatic changes versus less likely pneumonia in the left mid and lower lung. Findings are unchanged from the most recent prior exam but new compared to older exams. 2. Underlying COPD. 3. Diffuse osteopenia. Renal ultrasound was essentially unremarkable 1.UTI with ALF-resolved - PO intake is improved -Urine cultures were contminated. Patient is asymptomatic at this time -Fluids discontinued -Blood culture neg 2. Anemia -Hgb:8.5, following transfusing 1 unit of PRBC 3. Decreased PO intake -The patient is drinking Ensure with improved PO intake -Speech and swallo evlauation done and switching the patient to a regular diet was suggested -Prealbumin:11.2, Nutrition consult placed. Recommended calorie count for 48 hours followed by decision to place PEG tube 4. Altered mental status -The patient is alert and oriented. She slept well last night. -Psych input appreciated. -Olanzapine 2.5 mg BID -Psych input appreciated. Underlying dementia cannot be ruled out. Daughter does not want patient to go to a Psychiatric facility. 5. Cough -Cough settled at this time -Chest X-ray shows no evidence of pneumonia 6. Hypomagnesemia-resolved 7.Severe protein calorie malnutrition: prealbumin 11. Consulted dietitian. ( discussed nutritional support with daughter and possible PEG tube vs encouragement of PO intake). daughter agrees with increase in oral intake. DVT prophylaxis addressed with Eliquis Code status: Full code Problem List: 1. Protein-energy malnutrition 2. Anemia 3. Altered mental status Pain Ratin Pain Location: none Pain Goal: Remain pain free Pain Plan: none Tomorrow's Labs & Rationales: none Ramu Godinez 01/12/18 1225: Attending MD Review Statement Attending Statement Attending MD Statement: examined this patient, discuss w/resident/PA/[employer] TRUCK [employer]IVER, agreed w/resident/PA/[employer] DRIVER, discussed with family, reviewed EMR data (avail), discussed with nursing, discussed with case mgmt, reviewed images, amended to note Attending Assessment/Plan: Patient feeling much better. Hemodynacmically stable.
[2018-01-12 09:13] LABS: ABSOLUTE BASOPHIL COUNT 0 /CUMM (0.0-0.2); ABSOLUTE EOSINOPHIL COUNT 0.5 /CUMM (0.0-0.7); ABSOLUTE GRANULOCYTE CT 6.8 /CUMM (1.4-6.5); ABSOLUTE LYMPH COUNT 1.5 /CUMM (1.2-3.4); ABSOLUTE MONOCYTE COUNT 0.9 /CUMM (0.10-0.60); BASOPHIL % 0.4 % (0.0-2.0); EOSINOPHIL % 5.1 % (0-5); HEMATOCRIT 26.8 % (37-47); MEAN CORPUSCULAR HGB CONC 33.3 G/DL (33.0-37.0); MEAN CORPUSCULAR VOLUME 96.2 FL (81.0-99.0); MEAN PLATELET VOLUME 7.9 FL (7.4-10.4); PLATELET COUNT 405 /CUMM (130-400); RBC DISTRIBUTION WIDTH 16.8 % (11.5-14.5); RED BLOOD CELL CT 2.78 /CUMM (4.20-5.40); WHITE BLOOD CELL COUNT 9.8 /CUMM (4.8-10.8)
--- NOTE | 2018-01-12 12:51 | PN- Psychiatry ---
Assessment/Plan Impression: The patient remains delirious. Unclear whether there is an underlying dementing process. 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 The patient's daughter was with her when I entered the room. The patient was asleep, mumbling incoherently. Her daughter insisted that I not wake her mother. Explained to her daughter are concerned as her mother's ongoing delirium. Suggested possible geriatric psychiatric admission for further stabilization. Daughter adamantly declined. Suggestion: Continue medication as ordered. Continue to consider possible causes of delirium. Possible underlying dementia diagnosis which has not been out ruled. Subjective Subjective: The patient was asleep. Her daughter declined permission for me to wake her. Objective Last 24 Hrs of Vital Signs/I&O Vital Signs Date Time Temp Pulse Resp B/P B/P Pulse O2 O2 Flow FiO2 Mean Ox Delivery Rate 01/12 0627 98.5 90 20 124/60 95 Room Air 01/11 2215 98.3 88 16 114/78 96 01/11 1600 93 Room Air 01/11 1400 98.2 62 20 110/80 93 Room Air Intake & Output 01/12 1600 01/12 0800 01/12 0000 Intake Total 130 130 Output Total Balance 130 130 Intake, IV 10 10 Intake, Oral 120 120 Number 2 2 Bowel Movements
[2018-01-12 13:51] VITALS: BP 124/60
== END 2018-01-12 15:30 | DRG 683 ==
LOC: ERH 12:20 → 2NA 14:32 → ERHI 14:32 → 2NA 14:32 → CANRESERV 15:29 → ENRESERV 15:29 → ENTRNSPT 16:31 → EDTRNSPT 16:49 → EDTRNSPTSTS 16:57 → 2NA 17:00 → CMPTRNSPT 17:17 → 2NA 12-31 08:06 → ENPENDDIS 01-12 12:03 → 2NA 01-12 15:30
PROVIDERS: Hospitalist; Internal Medicine; Student in an Organized Health Care Education/Training Program
PROC: 30253N1 (ICD-10-PCS; principal; 2018-01-07)
DX: N17.9 Acute kidney failure, unspecified (principal); N39.0 Urinary tract infection, site not specified; C90.00 Multiple myeloma not having achieved remission; E27.40 Unspecified adrenocortical insufficiency; F05 Delirium due to known physiological condition; E46 Unspecified protein-calorie malnutrition; E86.0 Dehydration; I10 Essential (primary) hypertension; J45.909 Unspecified asthma, uncomplicated; K21.9 Gastro-esophageal reflux disease without esophagitis; M19.90 Unspecified osteoarthritis, unspecified site; Z88.0 Allergy status to penicillin; Z88.2 Allergy status to sulfonamides; F41.9 Anxiety disorder, unspecified; G47.00 Insomnia, unspecified; E83.42 Hypomagnesemia; D63.8 Anemia in other chronic diseases classified elsewhere; Z57.39 Occupational exposure to other air contaminants; R47.02 Dysphasia; Z68.25 Body mass index [BMI] 25.0-25.9, adult; B95.2 Enterococcus as the cause of diseases classified elsewhere
CPT/HCPCS: 2NAP; 2NASP; 36415; 36592; 71045; 76775; 81001; 82436; 86920; 87040; 87070; 87086; 87088; 87147; 93005; 93010; 96360; 97110-GO; 97112-GO; 97161-GP; 97530-GO; J0131; J0696; J2405; J3490; P9016